=== PATIENT | male | born 1975 | race Caucasian/White ===

== ENCOUNTER 2017-06-17 14:08 | Emergency (ER) | payer OTHER ==
[2017-06-17] MEDS ORDERED: IBUPROFEN 600 MG TAB PO STA (15:24)
[2017-06-17] MEDS ORDERED: IPRATROPIUM-ALBUTEROL 3 ML NEB INHALATION STA (15:24)
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
--- NOTE | 2017-06-17 16:05 | XR ---
EXAMINATION TYPE: XR chest 2V DATE OF EXAM: 06/17/2017 COMPARISON: Prior chest x-ray April 24, 2010 HISTORY: Cough TECHNIQUE: Frontal and lateral views of the chest are obtained. FINDINGS: Sternal wires and metallic aortic valve are redemonstrated. There is no new suspicious foc al air space opacity, pleural effusion, or pneumothorax seen. There is persistent left hilar linear scarring. The cardiac silhouette size is enlarged. There is large Clark horacio from prior scoliosis correction surgery redemonstrated. IMPRESSION: No suspicious acute infiltrate.
[2017-06-17 16:38] VITALS: BP 118/78; PULSE 88; RESP 17; TEMP 98.7
== END 2017-06-17 16:37 | disposition home or self-care (01) ==
LOC: EC 14:08
DX: J10.1 Influenza due to other identified influenza virus with other respiratory manifestations (principal); I10 Essential (primary) hypertension; F17.200 Nicotine dependence, unspecified, uncomplicated; Z88.1 Allergy status to other antibiotic agents; Z88.2 Allergy status to sulfonamides; Z79.01 Long term (current) use of anticoagulants; Z79.899 Other long term (current) drug therapy
CPT/HCPCS: 71046; 87502; 99283

== ENCOUNTER → 2017-12-01 | Outpatient (CLI) | payer OTHER ==
--- NOTE | 2017-12-01 14:55 | US ---
EXAMINATION TYPE: US kidneys/renal and bladder DATE OF EXAM: 12/01/2017 COMPARISON: CT & US CLINICAL HISTORY: N31.9 Neurogenic Bladder. Neurogenic bladder, pt has urostomy bag EXAM MEASUREMENTS: Right Kidney: 11.6 x 6.2 x 5.3 cm Left Kidney: 10.8 x 5.9 x 5.4 cm Pt scanned in wheelchair Right Kidney: lower pole gassed out Left Kidney: lower pole difficult to visualize Bladder: Pt has urostomy bag Incidental finding enlarged spleen Cortical medullary differentiation is maintained. Question some increased cortical echogenicity. IMPRESSION: There are some limitations to the exam. There may be some underlying medical renal disease. Ryley del cid.
== END | disposition home or self-care (01) ==
LOC: RADUSWWP 13:53
PROVIDERS: ATTEND Urology
DX: R16.1 Splenomegaly, not elsewhere classified (principal)
CPT/HCPCS: 76770

== ENCOUNTER → 2018-09-17 | Outpatient (CLI) | payer OTHER ==
--- NOTE | 2018-09-17 15:49 | MR ---
EXAMINATION TYPE: MR shoulder LT wo con DATE OF EXAM: 09/17/2018 COMPARISON: None HISTORY: Pain in left shoulder TECHNIQUE: Multiplanar, multisequence imaging of the left shoulder is performed without contrast. FINDINGS: There is motion on the exam which may limit evaluation Rotator Cuff: There is abnormal thickening, increased signal within the rotator cuff tendon. No ginette rotator cuff tear is evident. Acromioclavicular Joint: Some arthropathy present at the acromioclavicular joint, there is some fluid signal in the subacromial subdeltoid bursa. Distal acromion is downturned, suspect there is a distal acromial spur. Glenohumeral Joint: Intact Labrum: The labrum appears grossly intact given limitation of non-arthrogram study. Biceps Tendon: The long head of biceps is in normal location within bicipital groove. Bone marrow signal: Pseudocysts present within the humeral head. Other: No additional significant abnormality is appreciated. IMPRESSION: Tendinosis of the rotator cuff, correlate for impingement. No ginette rotator cuff tear.
== END | disposition home or self-care (01) ==
LOC: RADMRIMAIN 14:22
PROVIDERS: ATTEND Family Medicine
DX: M67.814 Other specified disorders of tendon, left shoulder (principal)

== ENCOUNTER 2018-11-11 20:58 | Emergency (ER) | payer OTHER ==
[2018-11-11 21:06] VITALS: RESP 16; TEMP 98.1
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
[2018-11-11 21:59] LABS: Anisocytosis Slight; Basophils % (A) 0 %; Eosinophils # (A) 0.1 k/uL (0-0.7); Eosinophils % (A) 1 %; HCT 47.8 % (39.0-53.0); HGB 15.4 gm/dL (13.0-17.5); Lymphocytes # (A) 1.7 k/uL (1.0-4.8); Lymphocytes % (A) 15 %; MCH 26.9 pg (25.0-35.0); MCHC 32.3 g/dL (31.0-37.0); MCV 83.3 fL (80.0-100.0); Mean Platelet Volume 7.5; Monocytes # (A) 0.6 k/uL (0-1.0); Monocytes % (A) 5 %; Neutrophils % (A) 78 %; Platelet Count 225 k/uL (150-450); RBC 5.74 m/uL (4.30-5.90); RDW 16.4 % (11.5-15.5); WBC 11.5 k/uL (3.8-10.6)
--- NOTE | 2018-11-11 22:02 | CT ---
EXAMINATION TYPE: CT brain wo con DATE OF EXAM: 11/11/2018 COMPARISON: 03/06/2010 HISTORY: lt facial numbness x [address] DLP: 1099.4 mGycm. Automated Exposure Control for Dose Reduction was Utilized. TECHNIQUE: CT scan of the head is performed without contrast. FINDINGS: Ventricles have normal size. There is no mass effect nor midline shift. There is no sign of intracranial hemorrhage. There is mild hypodensity around the lateral ventricles and the periventric ular white matter. Calvarium is intact. There is a 1 cm area of hypodensity in the genu right interna l capsule. IMPRESSION: There is some cerebral atrophy and mild white matter changes that could relate to chronic small vesse l ischemia or demyelinating disease. No significant change compared to old exam.
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
[2018-11-11 22:08] LABS: ALT 21 U/L (21-72); AST 29 U/L (17-59); African American GFR (CKD) >90 (>60 ml/min/1.73 sqM); Albumin 4.1 g/dL (3.5-5.0); Alkaline Phosphatase 380 U/L (38-126); Anion Gap 10 mmol/L; Blood Urea Nitrogen 19 mg/dL (9-20); Calcium 9.8 mg/dL (8.4-10.2); Carbon Dioxide 22 mmol/L (22-30); Chloride 107 mmol/L (98-107); Glucose 76 mg/dL (74-99); Magnesium 1.7 mg/dL (1.6-2.3); Potassium 4.2 mmol/L (3.5-5.1); Sodium 139 mmol/L (137-145); Total Bilirubin 0.7 mg/dL (0.2-1.3); Total Protein 7.6 g/dL (6.3-8.2)
[2018-11-11 22:11] LABS: INR 1.9 (<1.2)
[2018-11-11 22:12] LABS: Partial Thromboplastin Time 34.2 sec (22.0-30.0)
[2018-11-11 22:24] LABS: T4, Free (Free Thyroxine) 1.33 ng/dL (0.78-2.19)
[2018-11-11 23:41] VITALS: BP 105/82; PULSE 118
== END 2018-11-11 23:41 | disposition home or self-care (01) ==
LOC: EC 20:58
DX: G51.0 Bell's palsy (principal); I10 Essential (primary) hypertension; F17.200 Nicotine dependence, unspecified, uncomplicated; Z95.2 Presence of prosthetic heart valve; Z79.01 Long term (current) use of anticoagulants; Z79.899 Other long term (current) drug therapy; Z88.1 Allergy status to other antibiotic agents; Z88.2 Allergy status to sulfonamides; Z91.048 Other nonmedicinal substance allergy status
CPT/HCPCS: 36415; 70450; 71046; 80053; 83735; 84439; 84443; 84481; 85025; 85610; 85730; 93005; 99285

== ENCOUNTER 2019-04-08 15:01 | Emergency (ER) | payer OTHER ==
[2019-04-08 15:11] VITALS: BP 130/87; PULSE 97; RESP 16; TEMP 97.1
[2019-04-08] MEDS ORDERED: DIPH,PERTUS(ACELL)TETVAC-LF 0.5 ML VIAL IM ONE (15:20)
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
[2019-04-08 16:02] LABS: INR 3.5 (<1.2); Prothrombin Time 33.4 sec (9.0-12.0)
--- NOTE | 2019-04-08 16:24 | CT ---
EXAMINATION TYPE: CT brain celia rogers DATE OF EXAM: 04/08/2019 COMPARISON: 11/11/2018 HISTORY: Fall with subsequent head and neck pain CT DLP: 1477.2 mGycm. Automated Exposure Control for Dose Reduction was Utilized. TECHNIQUE: CT scan of the head and cervical spine are performed without contrast. FINDINGS: There is no acute intracranial hemorrhage, mass effect, or midline shift identified. Pos terior right para midline occipital scalp hematoma measures 6 mm in greatest thickness. The ventricle s and sulci are within normal limits in size. Patchy areas of hypoattenuation are seen within the per iventricular and subcortical white matter. There is an old lacunar injury of the anterior limb of the right internal capsule. The globes are intact and the visualized sinuses are clear. Cervical spine is visualized in its entirety from C1 through upper thoracic levels and demonstrates s atisfactory alignment without evidence of acute fracture or dislocation. Prevertebral soft tissue ap pears within normal limits. The C1-C2 articulation is unremarkable. Partial visualization of postsu rgical changes of the thoracic spine. Multilevel endplate sclerosis and intervertebral disc space sophia rowing. Sclerotic foci of C4 and T1 could represent small bone islands. There is reversal of the usua l cervical lordosis. IMPRESSION: 1. There is no acute fracture or dislocation evident in the cervical spine. 2. No acute intracranial hemorrhage, mass effect, or midline shift is seen. 3. Right para midline scalp hematoma of the occipital region measuring 6 mm in greatest thickness. 4. Reversal usual cervical lordosis that may be on the basis of spasm or patient positioning.
== END 2019-04-08 16:51 | disposition home or self-care (01) ==
LOC: EC 15:01
DX: S00.03XA Contusion of scalp, initial encounter (principal); I10 Essential (primary) hypertension; G82.20 Paraplegia, unspecified; F17.200 Nicotine dependence, unspecified, uncomplicated; Z79.01 Long term (current) use of anticoagulants; Z79.899 Other long term (current) drug therapy; Z88.1 Allergy status to other antibiotic agents; Z88.2 Allergy status to sulfonamides; Z23 Encounter for immunization; Z95.2 Presence of prosthetic heart valve; Z99.3 Dependence on wheelchair; W18.39XA Other fall on same level, initial encounter; Y92.89 Other specified places as the place of occurrence of the external cause
CPT/HCPCS: 36415; 70450; 72125; 85610; 90471; 90715; 99284

== ENCOUNTER → 2019-09-14 | Outpatient (CLI) | payer OTHER ==
[2019-09-14 15:58] LABS: Anisocytosis Slight; Basophils % (A) 0 %; Eosinophils # (A) 0.1 k/uL (0-0.7); Eosinophils % (A) 1 %; HCT 44.6 % (39.0-53.0); HGB 14.2 gm/dL (13.0-17.5); Lymphocytes # (A) 1.2 k/uL (1.0-4.8); Lymphocytes % (A) 15 %; MCH 29.6 pg (25.0-35.0); MCHC 31.9 g/dL (31.0-37.0); Mean Platelet Volume 8.3; Monocytes # (A) 0.4 k/uL (0-1.0); Monocytes % (A) 5 %; Neutrophils # (A) 6.4 k/uL (1.3-7.7); Neutrophils % (A) 78 %; Platelet Count 200 k/uL (150-450); RDW 16.2 % (11.5-15.5); WBC 8.1 k/uL (3.8-10.6)
[2019-09-14 17:31] LABS: Erythrocyte Sedimentation Rate 80 mm/hr (0-15)
[2019-09-14 23:24] LABS: African American GFR (CKD) 168.6 (60.0-200.0); Albumin 3.8 g/dL (3.80-4.90); Albumin/Globulin Ratio 1.31 (1.60-3.17); Anion Gap 10.7 mmol/L (4.00-12.00); Bilirubin, Conjugated 0.6 mg/dL (0.20-0.40); Bilirubin,Unconjugated 0.2 mg/dL; Calcium 9.2 mg/dL (8.7-10.3); Carbon Dioxide 24.3 mmol/L (21.6-31.8); Globulin 2.9 g/dL (1.6-3.3); Non-African American GFR(CKD) 145.5 (60.0-200.0); Total Bilirubin 0.8 mg/dL (0.2-1.2); Total Protein 6.7 g/dL (6.2-8.2)
== END | disposition home or self-care (01) ==
LOC: LABWHC1 11:24
PROVIDERS: ATTEND Internal Medicine
DX: M86.651 Other chronic osteomyelitis, right thigh (principal)
CPT/HCPCS: 36415; 80048; 80076; 85025; 85652

== ENCOUNTER 2020-01-19 | Emergency (ER) | payer OTHER ==
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
[2020-01-19 00:14] VITALS: RESP 16; TEMP 98.3
[2020-01-19] MEDS ORDERED: MORPHINE SULFATE 4 MG/ML SYRINGE IVP STA (00:55)
[2020-01-19 01:09] VITALS: BP 131/71; PULSE 79
== END 2020-01-19 01:19 | disposition other institution (70) ==
LOC: EC
DX: M86.68 Other chronic osteomyelitis, other site (principal); M62.461 Contracture of muscle, right lower leg; M62.462 Contracture of muscle, left lower leg; I10 Essential (primary) hypertension; G82.20 Paraplegia, unspecified; Z87.828 Personal history of other (healed) physical injury and trauma; Z88.1 Allergy status to other antibiotic agents; Z88.2 Allergy status to sulfonamides; Z95.2 Presence of prosthetic heart valve; Z79.01 Long term (current) use of anticoagulants
CPT/HCPCS: 99284; 96374; J2270

== ENCOUNTER 2020-04-23 16:53 | Inpatient (IN) | payer OTHER ==
[2020-04-23] MEDS ORDERED: SODIUM CHLORIDE 0.9% 500 ML 500 ML IV STA (17:33)
[2020-04-23] MEDS ORDERED: ONDANSETRON 4 MG/2 ML VIAL IVP STA (17:37)
[2020-04-23] MEDS ORDERED: MORPHINE SULFATE 4 MG/ML SYRINGE IVP STA (17:37)
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
[2020-04-23 18:20] LABS: Anisocytosis Slight; Basophils % (A) 0 %; Eosinophils # (A) 0.1 k/uL (0-0.7); Eosinophils % (A) 1 %; HGB 9.2 gm/dL (13.0-17.5); Hypochromasia Marked; Lymphocytes # (A) 0.8 k/uL (1.0-4.8); Lymphocytes % (A) 8 %; MCHC 30.7 g/dL (31.0-37.0); Mean Platelet Volume 6.7; Microcytosis Moderate; Monocytes # (A) 0.4 k/uL (0-1.0); Monocytes % (A) 4 %; Neutrophils # (A) 8.8 k/uL (1.3-7.7); Neutrophils % (A) 86 %; Platelet Count 411 k/uL (150-450); Poikilocytosis Slight; WBC 10.2 k/uL (3.8-10.6)
[2020-04-23 18:26] LABS: Anion Gap 3 mmol/L; Blood Urea Nitrogen 18 mg/dL (9-20); Carbon Dioxide 28 mmol/L (22-30); Chloride 101 mmol/L (98-107); Glucose 122 mg/dL (74-99); MCV 71.5 fL (80.0-100.0); Potassium 4.9 mmol/L (3.5-5.1); Sodium 132 mmol/L (137-145)
[2020-04-23 18:27] LABS: ALT 42 U/L (4-49); AST 99 U/L (17-59); African American GFR (CKD) >90 (>60 ml/min/1.73 sqM); Albumin 3.2 g/dL (3.5-5.0); Alkaline Phosphatase 956 U/L (38-126); Calcium 8.8 mg/dL (8.4-10.2); Non-African American GFR(CKD) >90 (>60 ml/min/1.73 sqM); Total Bilirubin 0.5 mg/dL (0.2-1.3); Total Protein 7.5 g/dL (6.3-8.2)
--- NOTE | 2020-04-23 19:06 | XR ---
EXAMINATION TYPE: XR sacrum coccyx DATE OF EXAM: 04/23/2020 COMPARISON: NONE HISTORY: Chronic wound TECHNIQUE: 3 views FINDINGS: There is osteopenia. There is posterior fusion surgery in the lower lumbar spine and extend ing through S1. Visualized sacrum appears to show no focal bone destruction. Coccyx is not well seen. Coccygeal segments appear to be absent. IMPRESSION: Limited exam shows possible destructive changes involving all the segments of the coccyx. Sacrum is osteopenic.
[2020-04-23 19:28] LABS: C Reactive Protein 165.4 mg/L (<10.0)
[2020-04-23] MEDS ORDERED: ACETAMINOPHEN TAB 500 MG TAB PO STA (20:20)
[2020-04-23] MEDS ORDERED: ACETAMINOPHEN TAB 325 MG TAB PO PRN (20:46)
[2020-04-23] MEDS ORDERED: ONDANSETRON 4 MG/2 ML VIAL IVP PRN (20:46)
[2020-04-23] MEDS ORDERED: NALOXONE 0.4 MG/ML 1 ML VIAL IV PRN (20:46)
[2020-04-23] MEDS ORDERED: PIPERACILLIN-TAZOBACTAM 3.375 GM in SODIUM CHLORIDE 0.9% 100 ML IVPB STA (20:50)
[2020-04-23] MEDS ORDERED: CLINDAMYCIN 600 MG in DEXTROSE 5% IN WATER 50 ML IVPB STA ×2 (20:59)
[2020-04-23] MEDS ORDERED: diphenhydrAMINE 25 MG CAP PO STA (21:43)
[2020-04-23] MEDS: SODIUM CHLORIDE 0.9% 1,000 ML IV SCH (21:44)
[2020-04-23] MEDS: MORPHINE SULFATE 4 MG/ML SYRINGE IV PRN (22:25)
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
[2020-04-24 00:51] LABS: Prothrombin Time 57.4 sec (9.0-12.0)
[2020-04-24 00:58] LABS: INR 5.7 (<1.2)
[2020-04-24] MEDS ORDERED: ALPRAZolam 0.25 MG TAB PO PRN (03:00)
[2020-04-24] MEDS: MORPHINE SULFATE 4 MG/ML SYRINGE IV PRN ×4 (05:45→20:16)
[2020-04-24 05:55] LABS: Anisocytosis Slight; HCT 27.5 % (39.0-53.0); HGB 8.7 gm/dL (13.0-17.5); Hypochromasia Marked; MCH 23.3 pg (25.0-35.0); MCHC 31.8 g/dL (31.0-37.0); MCV 73.2 fL (80.0-100.0); Mean Platelet Volume 7.1; Microcytosis Moderate; Platelet Count 345 k/uL (150-450); Poikilocytosis Slight; RBC 3.76 m/uL (4.30-5.90); RDW 17.2 % (11.5-15.5); WBC 12.4 k/uL (3.8-10.6)
[2020-04-24 09:39] LABS: Ferritin 81.6 ng/mL (22.0-322.0)
[2020-04-24 09:44] LABS: % Iron Saturation 5.53 (15.00-50.00)
[2020-04-24 09:45] LABS: African American GFR (CKD) 152.8 (60.0-200.0); Albumin/Globulin Ratio 1.11 (1.60-3.17); Anion Gap 9.3 mmol/L (4.00-12.00); Calcium 8.1 mg/dL (8.7-10.3); Carbon Dioxide 22.7 mmol/L (21.6-31.8); Globulin 2.7 g/dL (1.6-3.3); Non-African American GFR(CKD) 131.8 (60.0-200.0); Potassium 4.5 mmol/L (3.5-5.5); Total Bilirubin 0.7 mg/dL (0.3-1.2); Total Protein 5.7 g/dL (6.2-8.2)
[2020-04-24 09:51] LABS: Prothrombin Time 50.1 sec (9.9-11.9)
[2020-04-24] MEDS: POTASSIUM CHLORIDE ER 20 MEQ TAB.ER PO SCH (10:13)
[2020-04-24] MEDS: MAGNESIUM OXIDE 400 MG TAB PO SCH (10:14)
[2020-04-24 10:15] LABS: INR 5.24 (0.90-1.11)
[2020-04-24] MEDS: CLINDAMYCIN 150 MG CAP PO SCH ×4 (10:17→21:16)
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
[2020-04-24] MEDS: SODIUM CHLORIDE 0.9% 1,000 ML IV SCH (13:44)
--- NOTE | 2020-04-24 13:48 | P.PN ---
Subjective Progress Note Date: 04/24/20 Patient is awake and alert. He is complaining of pain that is not well controlled. Apparently patient has an ALLERGY to every antibiotic in the book. When I try to clarify these ALLERGY most of it was reported itching but not read ALLERGY. He is requesting IV Benadryl around the clock with each dose of antibiotic which I explained to him that is not realistic and is not a good practice. I advised him to review his antibiotic ALLERGIES accurately so that we can eliminate some of his long ALLERGY list. On exam of his buttock, patient has a very large stage IV ulcer in the coccyx extending all the way to the bone with wound packing and foul-smelling and some purulent drainage as well as surrounding erythema. Objective - Vital Signs Vital signs: Vital Signs Temp 99.2 F 04/24/20 08:00 Pulse 118 H 04/24/20 08:00 Resp 20 04/24/20 08:00 BP 113/68 04/24/20 08:00 Pulse Ox 98 04/24/20 08:00 Intake & Output 04/23/20 04/24/20 04/24/20 18:59 06:59 18:59 Output Total 600 Balance -600 Weight 65.771 kg 65.771 kg Output: Urine 600 - Exam General: The patient is awake and alert, in no distress Eye: there is normal conjunctiva bilaterally. Neck: The neck is supple, there is no JVD. Cardiovascular: Normal S1-S2, no S3-S4, no murmurs. Respiratory: Lungs clear to auscultation bilaterally Gastrointestinal: Abdomen is soft, nontender Musculoskeletal: There is no pedal edema. Neurological:. Speech is normal. Skin: Skin is warm and dry - Labs CBC & Chem 7: 04/24/20 05:45 04/24/20 05:45 Labs: Abnormal Lab Results - Last 24 Hours (Table) 04/23/20 04/23/20 04/24/20 Range/Units 17:41 17:41 00:33 WBC (3.8-10.6) k/uL RBC 4.20 L (4.30-5.90) m/uL Hgb 9.2 L (13.0-17.5) gm/dL Hct 30.0 L (39.0-53.0) % MCV 71.5 L D (80.0-100.0) fL MCH 22.0 L (25.0-35.0) pg MCHC 30.7 L (31.0-37.0) g/dL RDW 17.0 H (11.5-15.5) % Neutrophils # 8.8 H (1.3-7.7) k/uL Lymphocytes # 0.8 L (1.0-4.8) k/uL PT 57.4 H (9.0-12.0) sec INR 5.7 H* (<1.2) Sodium 132 L (137-145) mmol/L Creatinine 0.54 L (0.66-1.25) mg/dL BUN/Creatinine Ratio (12.00-20.00) Ratio Glucose 122 H (74-99) mg/dL Calcium (8.7-10.3) mg/dL Iron (65-175) ug/dL % Saturation (15.00-50.00) AST 99 H (17-59) U/L Alkaline Phosphatase 956 H (38-126) U/L C-Reactive Protein 165.4 H (<10.0) mg/L Total Protein (6.2-8.2) g/dL Albumin 3.2 L (3.5-5.0) g/dL Albumin/Globulin Ratio (1.60-3.17) g/dL 04/24/20 04/24/20 04/24/20 Range/Units 00:33 05:45 05:45 WBC 12.4 H (3.8-10.6) k/uL RBC 3.76 L (4.30-5.90) m/uL Hgb 8.7 L (13.0-17.5) gm/dL Hct 27.5 L (39.0-53.0) % MCV 73.2 L (80.0-100.0) fL MCH 23.3 L (25.0-35.0) pg MCHC (31.0-37.0) g/dL RDW 17.2 H (11.5-15.5) % Neutrophils # (1.3-7.7) k/uL Lymphocytes # (1.0-4.8) k/uL PT 50.1 H (9.0-12.0) sec INR 5.24 H* (<1.2) Sodium (137-145) mmol/L Creatinine (0.66-1.25) mg/dL BUN/Creatinine Ratio (12.00-20.00) Ratio Glucose (74-99) mg/dL Calcium (8.7-10.3) mg/dL Iron 14 L (65-175) ug/dL % Saturation 5.53 L (15.00-50.00) AST (17-59) U/L Alkaline Phosphatase (38-126) U/L C-Reactive Protein (<10.0) mg/L Total Protein (6.2-8.2) g/dL Albumin (3.5-5.0) g/dL Albumin/Globulin Ratio (1.60-3.17) g/dL 04/24/20 Range/Units 05:45 WBC (3.8-10.6) k/uL RBC (4.30-5.90) m/uL Hgb (13.0-17.5) gm/dL Hct (39.0-53.0) % MCV (80.0-100.0) fL MCH (25.0-35.0) pg MCHC (31.0-37.0) g/dL RDW (11.5-15.5) % Neutrophils # (1.3-7.7) k/uL Lymphocytes # (1.0-4.8) k/uL PT (9.0-12.0) sec INR (<1.2) Sodium (137-145) mmol/L Creatinine 0.5 L (0.66-1.25) mg/dL BUN/Creatinine Ratio 32.00 H (12.00-20.00) Ratio Glucose (74-99) mg/dL Calcium 8.1 L (8.7-10.3) mg/dL Iron (65-175) ug/dL % Saturation (15.00-50.00) AST 54 H (17-59) U/L Alkaline Phosphatase 919 H (38-126) U/L C-Reactive Protein (<10.0) mg/L Total Protein 5.7 L (6.2-8.2) g/dL Albumin 3.00 L (3.5-5.0) g/dL Albumin/Globulin Ratio 1.11 L (1.60-3.17) g/dL Microbiology - Last 24 Hours (Table) 12/07/20 18:07 Gram Stain - Preliminary Buttock Wound Culture - Preliminary Assessment and Plan Assessment: This is a 44-year-old male with complex past medical history noted below who presented to the emergency room with foul-smelling discharge from a chronic decubitus ulcer. Patient was evaluated in the ER and admitted to the hospital for further management of his medical problems noted below 1. Infected stage IV pressure ulcer of the sacrum/coccyx: Patient was started on a 4 weeks course of Cipro and amoxicillin from the [facility]. He is currently in the third week. Those were discontinued on presentation and patient Started on clindamycin. Infectious disease and general surgery consulted for further evaluation and possible debridement. Wound culture pending. We will continue to monitor inflammatory markers. CRP was 65 on presentation Patient has a long list of ALLERGIES that appear not to be accurate and was mos tly itching that he experienced without any skin rash. Patient was counseled that he needs to clarify his ALLERGIES and itching is simply not an ALLERGY as currently we have limited options of antibiotic for treatment. 2. Chronic osteomyelitis of the sacrum/coccyx with bone destruction involving the sacrum noted on x-ray: Patient usually follow-up with [facility]. He verbalized interest of moving his care into [id number] 3. Sepsis without septic shock: Improved with aggressive IV fluid hydration and antibiotic. Lactic acid normal. 4. History of DVT and PE on Coumadin: Pharmacy to dose 5. Supratherapeutic INR 6. Essential hypertension: A pressure within acceptable range. We'll continue to monitor 7. Hyponatremia: Resolved with IV fluid hydration 8. Iron deficiency anemia, and started on ferrous sulfate twice daily
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
[2020-04-24] MEDS: FERROUS SULFATE 325 MG TAB PO SCH (17:42)
[2020-04-24] MEDS ORDERED: WARFARIN 0.5 MG TAB PO ONE (18:00)
[2020-04-25] MEDS: KETOROLAC 15 MG/ML 1 ML VIAL IVP PRN ×2 (01:39→18:10)
[2020-04-25] MEDS: SODIUM CHLORIDE 0.9% 1,000 ML IV SCH (05:25)
[2020-04-25 06:41] LABS: Anisocytosis Slight; Basophils % (A) 0 %; Eosinophils # (A) 0.1 k/uL (0-0.7); Eosinophils % (A) 1 %; HCT 28.3 % (39.0-53.0); HGB 8.7 gm/dL (13.0-17.5); Hypochromasia Marked; Lymphocytes # (A) 0.8 k/uL (1.0-4.8); Lymphocytes % (A) 8 %; MCH 22.6 pg (25.0-35.0); MCHC 30.9 g/dL (31.0-37.0); MCV 73.4 fL (80.0-100.0); Mean Platelet Volume 6.3; Microcytosis Moderate; Monocytes # (A) 0.6 k/uL (0-1.0); Monocytes % (A) 6 %; Neutrophils # (A) 8.1 k/uL (1.3-7.7); Neutrophils % (A) 84 %; Platelet Count 358 k/uL (150-450); Poikilocytosis Slight; RBC 3.85 m/uL (4.30-5.90); RDW 17.3 % (11.5-15.5); WBC 9.7 k/uL (3.8-10.6)
[2020-04-25] MEDS: MAGNESIUM OXIDE 400 MG TAB PO SCH (08:44)
[2020-04-25] MEDS: MORPHINE SULFATE 4 MG/ML SYRINGE IV PRN ×4 (08:44→22:13)
[2020-04-25] MEDS: FERROUS SULFATE 325 MG TAB PO SCH ×2 (08:45→16:59)
[2020-04-25] MEDS: POTASSIUM CHLORIDE ER 20 MEQ TAB.ER PO SCH (08:45)
[2020-04-25] MEDS: CLINDAMYCIN 150 MG CAP PO SCH (08:45)
--- NOTE | 2020-04-25 10:56 | P.PN ---
Subjective Progress Note Date: 04/25/20 Patient is awake and alert. No acute events overnight. He does not like the food in the hospital and has not eating much. Objective - Vital Signs Vital signs: Vital Signs Temp 97.5 F L 04/25/20 07:22 Pulse 109 H 04/25/20 07:22 Resp 18 04/25/20 07:22 BP 101/62 04/25/20 07:22 Pulse Ox 98 04/25/20 07:22 Intake & Output 04/24/20 04/25/20 04/25/20 18:59 06:59 18:59 Output Total 1000 450 Balance -1000 -450 Output: Urine 1000 450 Other: # Bowel Movements 1 1 - Exam General: The patient is awake and alert, in no distress Eye: there is normal conjunctiva bilaterally. Neck: The neck is supple, there is no JVD. Cardiovascular: Normal S1-S2, no S3-S4, no murmurs. Respiratory: Lungs clear to auscultation bilaterally Gastrointestinal: Abdomen is soft, nontender Musculoskeletal: There is no pedal edema. Neurological:. Speech is normal. Skin: Skin is warm and dry. Referred to my progress note from yesterday, wound care and general surgery known for decubitus ulcer description - Labs CBC & Chem 7: 04/25/20 06:10 04/24/20 05:45 Labs: Abnormal Lab Results - Last 24 Hours (Table) 04/25/20 Range/Units 06:10 RBC 3.85 L (4.30-5.90) m/uL Hgb 8.7 L (13.0-17.5) gm/dL Hct 28.3 L (39.0-53.0) % MCV 73.4 L (80.0-100.0) fL MCH 22.6 L (25.0-35.0) pg MCHC 30.9 L (31.0-37.0) g/dL RDW 17.3 H (11.5-15.5) % Neutrophils # 8.1 H (1.3-7.7) k/uL Lymphocytes # 0.8 L (1.0-4.8) k/uL Microbiology - Last 24 Hours (Table) 04/23/20 21:04 Blood Culture - Preliminary Blood No Growth after 24 hours 04/23/20 18:07 Gram Stain - Preliminary Buttock Wound Culture - Preliminary Presumptive MRSA Assessment and Plan Assessment: This is a 44-year-old male with complex past medical history noted below who presented to the emergency room with foul-smelling discharge from a chronic decubitus ulcer. Patient was evaluated in the ER and admitted to the hospital for further management of his medical problems noted below 1. 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 Currently on clindamycin. Infectious disease and general surgery consulted for further evaluation and possible debridement. Wound culture pending. We will continue to monitor inflammatory markers. CRP was 165 on presentation Patient was started on a 4 weeks course of Cipro and amoxicillin from the [facility]. He completed 3/4 weeks. Those antibiotics were discontinued on presentation and patient Started on clindamycin. Patient has a long list of ALLERGIES that appear not to be accurate and was mostly itching that he experienced without any skin rash. Patient was counseled that he needs to clarify his ALLERGIES and itching is simply not an ALLERGY as currently we have limited options of antibiotic for treatment. 2. Chronic osteomyelitis of the sacrum/coccyx with bone destruction involving the sacrum noted on x-ray: [facility] He verbalized interest of moving his care into town as he is from [id number] 3. Sepsis without septic shock: Improved with aggressive IV fluid hydration and antibiotic. Lactic acid normal. Blood cultures negative to date 4. History of DVT and PE on Coumadin: Pharmacy to dose 5. Supratherapeutic INR 6. Essential hypertension: A pressure within acceptable range. We'll continue to monitor 7. Hyponatremia: Resolved with IV fluid hydration 8. Iron deficiency anemia, and started on ferrous sulfate twice daily Awaiting INR to improve for surgical debridement
[2020-04-25] MEDS ORDERED: PHYTONADIONE ORAL 5 MG/5 ML ORAL.SYRG PO STA (12:12)
[2020-04-25 12:24] LABS: African American GFR (CKD) 167.4 (60.0-200.0); Anion Gap 7.3 mmol/L (4.00-12.00); C Reactive Protein 17.4 mg/dL (0.0-0.8); Calcium 8.2 mg/dL (8.7-10.3); Carbon Dioxide 22.7 mmol/L (21.6-31.8); Non-African American GFR(CKD) 144.5 (60.0-200.0); Potassium 4.5 mmol/L (3.5-5.5)
--- NOTE | 2020-04-25 13:35 | P.PN ---
Subjective Progress Note Date: 04/25/20 CHIEF COMPLAINT: Stage IV sacral and coccyx decubitus ulcer HISTORY OF PRESENT ILLNESS: Patient seen and examined with Dr. Kang. Patient is being followed for his stage IV sacral and coccyx decubitus ulcer. Patient is on IV antibiotics. Culture is growing presumptive MRSA he did have a temp of 100 last night. WBC has improved from 12.4-9.7. INR 5.85. Patient is still having foul smelling drainage from the ulcer. PHYSICAL EXAM: VITAL SIGNS: Reviewed. GENERAL: Well-developed in no acute distress. HEENT: No sclera icterus. Extraocular movements grossly intact. Moist buccal mucosa. Head is atraumatic, normocephalic. ABDOMEN: Soft. Nondistended. Nontender. NEUROLOGIC: Alert and oriented. Cranial nerves II through XII grossly intact. SKIN: Stage IV coccyx sacral pressure ulcer. Ulceration has granulation tissue present. There is a large amount of purulent foul odor discharge. And there is tunneling noted. No eschar tissue noted ASSESSMENT: 1. Infected stage IV pressure ulcer of the sacrum and coccyx 2. Chronic osteomyelitis of the sacrum and coccyx 3. Coagulopathy 4. History of DVT and PE anticoagulated with Coumadin PLAN: -No surgical intervention planned -Continue antibiotics -Continue wound care Physician Termite Treater note has been reviewed by physician. Signing provider agrees with the documented findings, assessment, and plan of care. Objective - Vital Signs Vital signs: Vital Signs Temp 97.5 F L 04/25/20 07:22 Pulse 109 H 04/25/20 07:22 Resp 18 04/25/20 07:22 BP 101/62 04/25/20 07:22 Pulse Ox 98 04/25/20 07:22 Intake & Output 04/24/20 04/25/20 04/25/20 18:59 06:59 18:59 Output Total 1000 450 Balance -1000 -450 Output: Urine 1000 450 Other: # Bowel Movements 1 1 - Labs CBC & Chem 7: 04/25/20 06:10 04/25/20 06:10 Labs: Abnormal Lab Results - Last 24 Hours (Table) 04/25/20 04/25/20 04/25/20 Range/Units 06:10 06:10 06:10 RBC 3.85 L (4.30-5.90) m/uL Hgb 8.7 L (13.0-17.5) gm/dL Hct 28.3 L (39.0-53.0) % MCV 73.4 L (80.0-100.0) fL MCH 22.6 L (25.0-35.0) pg MCHC 30.9 L (31.0-37.0) g/dL RDW 17.3 H (11.5-15.5) % Neutrophils # 8.1 H (1.3-7.7) k/uL Lymphocytes # 0.8 L (1.0-4.8) k/uL PT 55.4 H* (9.9-11.9) sec INR 5.85 H* (0.90-1.11) Sodium 134 L (135-145) mmol/L Creatinine 0.4 L (0.6-1.5) mg/dL BUN/Creatinine Ratio 30.00 H (12.00-20.00) Ratio Calcium 8.2 L (8.7-10.3) mg/dL C-Reactive Protein 17.4 H (0.0-0.8) mg/dL Microbiology - Last 24 Hours (Table) 04/23/20 21:04 Blood Culture - Preliminary Blood No Growth after 24 hours 04/23/20 18:07 Gram Stain - Preliminary Buttock Wound Culture - Preliminary Presumptive MRSA
[2020-04-25 15:49] VITALS: BMI 24.9
[2020-04-25] MEDS ORDERED: CLINDAMYCIN 600 MG in DEXTROSE 5% IN WATER 50 ML IVPB SCH ×2 (16:00)
[2020-04-25] MEDS ORDERED: WARFARIN 0.5 MG TAB PO ONE (18:00)
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
[2020-04-26 07:03] LABS: Anisocytosis Slight; Basophils % (A) 0 %; Eosinophils # (A) 0.1 k/uL (0-0.7); Eosinophils % (A) 1 %; HCT 28.3 % (39.0-53.0); HGB 8.7 gm/dL (13.0-17.5); Hypochromasia Marked; Lymphocytes # (A) 0.7 k/uL (1.0-4.8); Lymphocytes % (A) 10 %; MCH 22.4 pg (25.0-35.0); MCHC 30.9 g/dL (31.0-37.0); MCV 72.7 fL (80.0-100.0); Mean Platelet Volume 6.9; Microcytosis Moderate; Monocytes # (A) 0.4 k/uL (0-1.0); Monocytes % (A) 6 %; Neutrophils # (A) 5.6 k/uL (1.3-7.7); Neutrophils % (A) 81 %; Platelet Count 386 k/uL (150-450); Poikilocytosis Slight; RDW 17.1 % (11.5-15.5); WBC 6.9 k/uL (3.8-10.6)
[2020-04-26 07:03] LABS: INR 5.85 (0.90-1.11); Prothrombin Time 55.4 sec (9.9-11.9)
[2020-04-26] MEDS: MORPHINE SULFATE 4 MG/ML SYRINGE IV PRN ×3 (09:08→22:01)
[2020-04-26] MEDS: MAGNESIUM OXIDE 400 MG TAB PO SCH (09:09)
[2020-04-26] MEDS: FERROUS SULFATE 325 MG TAB PO SCH ×2 (09:09→17:33)
[2020-04-26] MEDS: POTASSIUM CHLORIDE ER 20 MEQ TAB.ER PO SCH (09:09)
[2020-04-26 10:00] LABS: INR 1.48 (0.90-1.11); Prothrombin Time 15.5 sec (9.9-11.9)
[2020-04-26 11:10] LABS: African American GFR (CKD) 167.4 (60.0-200.0); Anion Gap 8.4 mmol/L (4.00-12.00); Calcium 8.3 mg/dL (8.7-10.3); Carbon Dioxide 20.6 mmol/L (21.6-31.8); Non-African American GFR(CKD) 144.5 (60.0-200.0)
--- NOTE | 2020-04-26 12:35 | P.PN ---
Subjective Progress Note Date: 04/26/20 CHIEF COMPLAINT: Stage IV sacral decubitus ulcer HISTORY OF PRESENT ILLNESS: Patient is being followed for his stage IV sacral decubitus ulcer. Patient is on IV antibiotics. Culture is growing MRSA. Af ebrile. Tachycardic. WBC 6.9 hemoglobin 8.7. Patient still having foul smelling drainage from the pressure ulcer. Patient has been requiring IV morphine for pain. PHYSICAL EXAM: VITAL SIGNS: Reviewed. GENERAL: Well-developed in no acute distress. HEENT: No sclera icterus. Extraocular movements grossly intact. Moist buccal mucosa. Head is atraumatic, normocephalic. ABDOMEN: Soft. Nondistended. Nontender. NEUROLOGIC: Alert and oriented. Cranial nerves II through XII grossly intact. SKIN: Stage IV sacral pressure ulcer. Ulceration has granulation tissue present. There is a large amount of purulent foul odor discharge. And there is tunneling noted. No eschar tissue noted ASSESSMENT: 1. Infected stage IV pressure ulcer of the sacrum 2. Chronic osteomyelitis of the sacrum and coccyx 3. Coagulopathy 4. History of DVT and PE anticoagulated with Coumadin PLAN: -No surgical intervention planned -Continue antibiotics -Continue wound care Physician Coat Joiner Lockstitch note has been reviewed by physician. Signing provider agrees with the documented findings, assessment, and plan of care. Objective - Vital Signs Vital signs: Vital Signs Temp 98.4 F 04/26/20 07:55 Pulse 108 H 04/26/20 07:55 Resp 20 04/26/20 07:55 BP 124/79 04/26/20 07:55 Pulse Ox 98 04/26/20 07:55 Intake & Output 04/25/20 04/26/20 04/26/20 18:59 06:59 18:59 Intake Total 600 Output Total 275 100 Balance 325 -100 Weight 65.771 kg Intake: Intake, IV Titration 600 Amount Sodium Chloride 0.9% 1, 600 000 ml @ 60 mls/hr IV . [id number] COUNT INCLUDES THE [facility] Rx#:[id number] Output: Urine 275 Stool 100 - Labs CBC & Chem 7: 04/26/20 06:48 04/26/20 06:48 Labs: Abnormal Lab Results - Last 24 Hours (Table) 04/25/20 04/26/20 04/26/20 Range/Units 06:10 06:48 06:48 RBC 3.90 L (4.30-5.90) m/uL Hgb 8.7 L (13.0-17.5) gm/dL Hct 28.3 L (39.0-53.0) % MCV 72.7 L (80.0-100.0) fL MCH 22.4 L (25.0-35.0) pg MCHC 30.9 L (31.0-37.0) g/dL RDW 17.1 H (11.5-15.5) % Lymphocytes # 0.7 L (1.0-4.8) k/uL PT 55.4 H* 15.5 H (9.9-11.9) sec INR 5.85 H* 1.48 H (0.90-1.11) Sodium (135-145) mmol/L Carbon Dioxide (21.6-31.8) mmol/L Creatinine (0.6-1.5) mg/dL BUN/Creatinine Ratio (12.00-20.00) Ratio Calcium (8.7-10.3) mg/dL 04/26/20 Range/Units 06:48 RBC (4.30-5.90) m/uL Hgb (13.0-17.5) gm/dL Hct (39.0-53.0) % MCV (80.0-100.0) fL MCH (25.0-35.0) pg MCHC (31.0-37.0) g/dL RDW (11.5-15.5) % Lymphocytes # (1.0-4.8) k/uL PT (9.9-11.9) sec INR (0.90-1.11) Sodium 133 L (135-145) mmol/L Carbon Dioxide 20.6 L (21.6-31.8) mmol/L Creatinine 0.4 L (0.6-1.5) mg/dL BUN/Creatinine Ratio 35.00 H (12.00-20.00) Ratio Calcium 8.3 L (8.7-10.3) mg/dL Microbiology - Last 24 Hours (Table) 04/23/20 21:04 Blood Culture - Preliminary Blood No Growth after 48 hours 04/23/20 18:07 Gram Stain - Final Buttock Wound Culture - Final Methicillin resist S. aureus
[2020-04-26] MEDS: diphenhydrAMINE 50 MG/ML 1 ML VIAL IVP SCH (14:23)
[2020-04-26] MEDS ORDERED: WARFARIN 2 MG TAB PO ONE (18:00)
--- NOTE | 2020-04-26 18:16 | P.PN ---
Subjective Progress Note Date: 04/26/20 Complaining of itching and requests written IV Benadryl Objective - Vital Signs Vital signs: Vital Signs Temp 98.6 F 04/26/20 14:00 Pulse 110 H 04/26/20 14:00 Resp 20 04/26/20 14:00 BP 109/66 04/26/20 14:00 Pulse Ox 100 04/26/20 14:00 Intake & Output 04/25/20 04/26/20 04/26/20 18:59 06:59 18:59 Intake Total 600 Output Total 275 100 Balance 325 -100 Weight 65.771 kg Intake: Intake, IV Titration 600 Amount Sodium Chloride 0.9% 1, 600 000 ml @ 60 mls/hr IV . [id number] [facility] Rx#:[id number] Output: Urine 275 Stool 100 - Constitutional General appearance: Present: no acute distress - Respiratory Respiratory: bilateral: diminished - Cardiovascular Rhythm: regular - Integumentary Integumentary Comment(s): Chronic nonhealing wound, stage IV - Labs CBC & Chem 7: 04/26/20 06:48 04/26/20 06:48 Labs: Abnormal Lab Results - Last 24 Hours (Table) 04/25/20 04/26/20 04/26/20 Range/Units 06:10 06:48 06:48 RBC 3.90 L (4.30-5.90) m/uL Hgb 8.7 L (13.0-17.5) gm/dL Hct 28.3 L (39.0-53.0) % MCV 72.7 L (80.0-100.0) fL MCH 22.4 L (25.0-35.0) pg MCHC 30.9 L (31.0-37.0) g/dL RDW 17.1 H (11.5-15.5) % Lymphocytes # 0.7 L (1.0-4.8) k/uL PT 55.4 H* 15.5 H (9.9-11.9) sec INR 5.85 H* 1.48 H (0.90-1.11) Sodium (135-145) mmol/L Carbon Dioxide (21.6-31.8) mmol/L Creatinine (0.6-1.5) mg/dL BUN/Creatinine Ratio (12.00-20.00) Ratio Calcium (8.7-10.3) mg/dL 04/26/20 Range/Units 06:48 RBC (4.30-5.90) m/uL Hgb (13.0-17.5) gm/dL Hct (39.0-53.0) % MCV (80.0-100.0) fL MCH (25.0-35.0) pg MCHC (31.0-37.0) g/dL RDW (11.5-15.5) % Lymphocytes # (1.0-4.8) k/uL PT (9.9-11.9) sec INR (0.90-1.11) Sodium 133 L (135-145) mmol/L Carbon Dioxide 20.6 L (21.6-31.8) mmol/L Creatinine 0.4 L (0.6-1.5) mg/dL BUN/Creatinine Ratio 35.00 H (12.00-20.00) Ratio Calcium 8.3 L (8.7-10.3) mg/dL Microbiology - Last 24 Hours (Table) 04/23/20 21:04 Blood Culture - Preliminary Blood No Growth after 48 hours 04/23/20 18:07 Gram Stain - Final Buttock Wound Culture - Final Methicillin resist S. aureus Assessment and Plan (1) Chronic osteomyelitis of left lower leg with draining sinus Narrative/Plan: No surgical intervention planned, appreciate surgery input, appreciate infectious disease input started on IV daptomycin, patient states he is feeling itchy requesting IV Benadryl will continue to monitor Current Visit: No Status: Acute Code(s): M86.462 - CHRONIC OSTEOMYELIT W DRAINING SINUS, LEFT TIBIA AND FIBULA SNOMED Code(s): 704819795183894 (2) Failure of outpatient treatment Narrative/Plan: With multiple ALLERGIES most of them described as itching Current Visit: Yes Status: Acute Code(s): Z78.9 - OTHER SPECIFIED HEALTH STATUS SNOMED Code(s): 781529979 (3) Hypertension Narrative/Plan: Continue outpatient regiment and titrate as needed Current Visit: Yes Status: Acute Code(s): I10 - ESSENTIAL (PRIMARY) HYPERTENSION SNOMED Code(s): 19730698
--- NOTE | 2020-04-26 22:52 | PN ---
PROGRESS NOTE DATE OF SERVICE: 04/26/2020 REASON FOR FOLLOWUP: Sacral osteomyelitis MRSA. INTERVAL HISTORY: The patient's overall fever pattern has improved. The patient has been breathing comfortably. Denies having any chest pain or shortness of breath or cough. No abdominal pain or worsening pain to the sacral wound area. PHYSICAL EXAMINATION: Blood pressure 115/70 with a pulse of 130, temperature 98.2. He is 100% on room air. General description is a middle-aged male lying in bed in no distress. RESPIRATORY SYSTEM: Unlabored breathing. Clear to auscultation anteriorly. HEART: S1, S2. Regular rate and rhythm. ABDOMEN: Soft. No tenderness. LABS: Hemoglobin 8.7, white count 6.9. INR is 1.48. Creatinine 0.4. DIAGNOSTIC IMPRESSION AND PLAN: Patient with sacral osteomyelitis with local culture positive for methicillin-resistant Staphylococcus aeruginosa. The patient does have MULTIPLE ANTIBIOTIC ALLERGIES. He refused daptomycin last night because it is a mycin; however, I had a detailed discussion with the patient, and the patient finally agreed to try the daptomycin but wanted for it. If the patient tolerates it, to be able to continue with daptomycin for a total of 6 weeks. Local wound care per wound care team and close outpatient followup. MMODL / IJN: [id number] /
[2020-04-27] MEDS: MORPHINE SULFATE 4 MG/ML SYRINGE IV PRN ×2 (02:03→08:18)
[2020-04-27 06:59] LABS: Anisocytosis Slight; Basophils % (A) 0 %; Eosinophils # (A) 0.1 k/uL (0-0.7); Eosinophils % (A) 1 %; HCT 28.7 % (39.0-53.0); HGB 8.7 gm/dL (13.0-17.5); Hypochromasia Marked; Lymphocytes % (A) 14 %; MCH 22.3 pg (25.0-35.0); MCHC 30.4 g/dL (31.0-37.0); MCV 73.4 fL (80.0-100.0); Mean Platelet Volume 6.3; Microcytosis Moderate; Monocytes # (A) 0.4 k/uL (0-1.0); Monocytes % (A) 6 %; Neutrophils # (A) 5.2 k/uL (1.3-7.7); Neutrophils % (A) 76 %; Platelet Count 373 k/uL (150-450); Poikilocytosis Slight; RBC 3.91 m/uL (4.30-5.90); RDW 17.7 % (11.5-15.5); WBC 6.8 k/uL (3.8-10.6)
[2020-04-27] MEDS: MAGNESIUM OXIDE 400 MG TAB PO SCH (08:18)
[2020-04-27] MEDS: FERROUS SULFATE 325 MG TAB PO SCH (08:18)
[2020-04-27] MEDS: POTASSIUM CHLORIDE ER 20 MEQ TAB.ER PO SCH (08:18)
[2020-04-27] MEDS: diphenhydrAMINE 50 MG/ML 1 ML VIAL IVP SCH ×2 (08:20→14:21)
[2020-04-27 09:27] LABS: INR 1.14 (0.90-1.11); Prothrombin Time 12.2 sec (9.9-11.9)
[2020-04-27 09:33] LABS: Erythrocyte Sedimentation Rate 116 mm/hr (0-15)
[2020-04-27 10:06] LABS: African American GFR (CKD) 167.4 (60.0-200.0); Anion Gap 5.4 mmol/L (4.00-12.00); BUN/Creat Ratio 27.5 Ratio (12.00-20.00); Calcium 8.2 mg/dL (8.7-10.3); Carbon Dioxide 23.6 mmol/L (21.6-31.8); Non-African American GFR(CKD) 144.5 (60.0-200.0); Potassium 4.6 mmol/L (3.5-5.5)
--- NOTE | 2020-04-27 11:13 | P.PN ---
Subjective Progress Note Date: 04/27/20 CHIEF COMPLAINT: Stage IV sacral decubitus ulcer HISTORY OF PRESENT ILLNESS: Patient is being followed for his stage IV sacral decubitus ulcer. Patient is on IV antibiotics. Culture is growing MRSA. Af ebrile. Tachycardic. WBC 6.8 Patient still having foul smelling drainage from the pressure ulcer. Patient reports that he is likely being discharged today on IV antibiotics. Infectious disease arranging IV antibiotics for outpatient. PHYSICAL EXAM: VITAL SIGNS: Reviewed. GENERAL: Well-developed in no acute distress. HEENT: No sclera icterus. Extraocular movements grossly intact. Moist buccal mucosa. Head is atraumatic, normocephalic. ABDOMEN: Soft. Nondistended. Nontender. NEUROLOGIC: Alert and oriented. Cranial nerves II through XII grossly intact. SKIN: Stage IV sacral pressure ulcer. Ulceration has granulation tissue present. There is a large amount of purulent foul odor discharge. And there is tunneling noted. No eschar tissue noted ASSESSMENT: 1. Infected stage IV pressure ulcer of the sacrum 2. Chronic osteomyelitis of the sacrum and coccyx 3. Coagulopathy 4. History of DVT and PE anticoagulated with Coumadin PLAN: -No surgical intervention planned -Continue antibiotics -Continue wound care -Stable for discharge from surgical standpoint Physician Cisco Engineer note has been reviewed by physician. Signing provider agrees with the documented findings, assessment, and plan of care. Objective - Vital Signs Vital signs: Vital Signs Temp 98.1 F 04/27/20 07:54 Pulse 109 H 04/27/20 07:54 Resp 20 04/27/20 07:54 BP 101/56 04/27/20 07:54 Pulse Ox 98 04/27/20 00:50 Intake & Output 04/26/20 04/27/20 04/27/20 18:59 06:59 18:59 Output Total 1200 550 Balance -1200 -550 Output: Urine 1200 550 - Labs CBC & Chem 7: 04/27/20 06:30 04/27/20 06:30 Labs: Abnormal Lab Results - Last 24 Hours (Table) 04/27/20 04/27/20 04/27/20 Range/Units 06:30 06:30 06:30 RBC 3.91 L (4.30-5.90) m/uL Hgb 8.7 L (13.0-17.5) gm/dL Hct 28.7 L (39.0-53.0) % MCV 73.4 L (80.0-100.0) fL MCH 22.3 L (25.0-35.0) pg MCHC 30.4 L (31.0-37.0) g/dL RDW 17.7 H (11.5-15.5) % ESR 116 H (0-15) mm/hr PT 12.2 H (9.9-11.9) sec INR 1.14 H (0.90-1.11) Creatinine 0.4 L (0.6-1.5) mg/dL BUN/Creatinine Ratio 27.50 H (12.00-20.00) Ratio Calcium 8.2 L (8.7-10.3) mg/dL Microbiology - Last 24 Hours (Table) 04/23/20 21:04 Blood Culture - Preliminary Blood No Growth after 72 hours
--- NOTE | 2020-04-27 13:39 | P.DS ---
Providers Date of admission: 04/23/20 23:41 Attending physician: Ben Sanches MD Consults: 04/24/20 09:30 Consult Physician Routine Consulting Provider: Ana Zacarias Consult Reason/Comments: infected decub ulcer Do you want consulting provider notified?: Yes 04/24/20 09:31 Consult Physician Routine Consulting Provider: Idris Kang Consult Reason/Comments: decub debridment? 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 The patient was taking ciprofloxacin and Augmentin was following at the [facility] wound care. In the emergency room patient was noted to have a fever of 100.6, pulse 112, blood pressure 111/68 right, 10.2 sacrococcyx x-ray showed destructive changes. The patient was hospitalized he was seen by general surgery and infectious disease throughout his stay. The patient was determined to need no further surgical intervention. Infectious disease recommended changing his antibiotics to daptomycin 6 weeks. The patient has multiple ALLERGIES however he has tolerated the daptomycin with Benadryl he was advised he could have Benadryl oral when necessary. It appears that he mainly has itching as a side effect of the medication. He had negative blood cultures blood cultures were positive for MRSA. Time spent 32 minutes Assessment: The patient without complaints Patient Condition at Discharge: Stable Plan - Discharge Summary New Discharge Prescriptions: New DAPTOmycin [Cubicin] 500 mg IVPB DAILY #42 bag No Action Metoprolol Tartrate [Lopressor] 50 mg PO BID Warfarin Sodium [Coumadin] 6 mg PO HS HYDROcodone/APAP 7.5-325MG [[place] 7.5-325] 1 tab PO TID PRN PRN Reason: Pain Docusate [Colace] 100 mg PO BID Amoxicillin 875 mg PO BID Spironolactone [Aldactone] 50 mg PO DAILY Furosemide [Lasix] 80 mg PO DAILY Ferrous Sulfate [Feosol] 325 mg PO DAILY Potassium Chloride ER [K-Dur 20] 20 meq PO DAILY Magnesium Oxide 400 mg PO DAILY Ciprofloxacin HCl [Cipro] 750 mg PO BID ALPRAZolam [Xanax] 0.25 mg PO BID PRN PRN Reason: Anxiety Discharge Medication List Metoprolol Tartrate [Lopressor] 50 mg PO BID 07/31/14 [History] Warfarin Sodium [Coumadin] 6 mg PO HS 11/11/18 [History] ALPRAZolam [Xanax] 0.25 mg PO BID PRN 04/23/20 [History] Amoxicillin 875 mg PO BID 04/23/20 [History] Ciprofloxacin HCl [Cipro] 750 mg PO BID 04/23/20 [History] Docusate [Colace] 100 mg PO BID 04/23/20 [History] Ferrous Sulfate [Feosol] 325 mg PO DAILY 04/23/20 [History] Furosemide [Lasix] 80 mg PO DAILY 04/23/20 [History] HYDROcodone/APAP 7.5-325MG [[place] 7.5-325] 1 tab PO TID PRN 04/23/20 [History] Magnesium Oxide 400 mg PO DAILY 04/23/20 [History] Potassium Chloride ER [K-Dur 20] 20 meq PO DAILY 04/23/20 [History] Spironolactone [Aldactone] 50 mg PO DAILY 04/23/20 [History] DAPTOmycin [Cubicin] 500 mg IVPB DAILY #42 bag 04/27/20 [Rx] Follow up Appointment(s)/Referral(s): [facility], [REFERRING] - ([facility] will deliver supplies to your house tonight. They will call you first. ) Filipe Castaneda MD [Primary Care Provider] - 1-2 days [place] [NON-STAFF] - As Needed (Wound supplies order faxed to [facility].) [facility]iting Nurse, [NON-STAFF] - Ambulatory/Diagnostic Orders: C Reactive Protein [LAB.AMB] Location: None Selected Complete Blood Count w/diff [LAB.AMB] Location: None Selected Comprehensive Metabolic Panel [LAB.AMB] Location: None Selected Erythrocyte Sedimentation Rate [LAB.AMB] Location: None Selected Patient Instructions/Handouts: MRSA (Methicillin-Resistant Staphylococcus Aureus) (DC) Discharge Disposition: HOME WITH HOME HEALTH SERVICES
[2020-04-27 14:05] VITALS: BP 111/70; PULSE 121; RESP 16; TEMP 97.9
[2020-04-27] MEDS ORDERED: WARFARIN 5 MG TAB PO ONE (18:00)
--- NOTE | 2020-04-30 12:43 | CDI ---
Documentation Clarification Form Date: 04/30/20 From: Ilda Maynard Phone: If you have questions regarding this query, please contact Melissa Luther at [phone]. Admit Date: 04/23/2020 11:41:00 PM Patient Name: Ponce Lam Visit Number: [id number] Discharge Date: 04/27/2020 04:38:00 PM ATTENTION: The Clinical Documentation Specialists (CDI) and [facility] Coding Staff appreciate your assistance in clarifying documentation. Please respond to the clarification below the line at the bottom and electronically sign. The CDI & [facility] Coding staff will review the response and follow-up if needed. Please note: Queries are made part of the Legal Health Record. If you have any questions, please contact the author of this message via ITS. Dr. Ethel Eden The diagnosis sepsis without septic shock was documented in the Dr. Ryan's 04/24 & 04/25 progress notes, but is not noted in subsequent documentation. History/Risk Factors: Infected coccyx/sacral decubitus ulcers, chronic osteomyelitis Clinical Indicators: Elevated WBC, elevated temp. WBC: 10.2 on admission, 12.4 at 05:45 the next day Lactic Acid: 1.3 Blood cultures: No growth Vital signs on admission: T. 99.5, P. 112, R. 18, BP 111/68. Temp on 04/23 100.6 Treatment: ID Consult: 1. Nonhealing wound to sacral area. 2. sacral osteomyelitis. 3. Stage IV pressure ulcer of sacral region Antibiotics: Clindamycin IV then Daptomycin IV Fluid Bolus: NS 1/2 liter Please clarify if the sepsis was Present/active this admission Treated and resolved this admission Ruled out Other, please specify _Sepsis treated and resolved this admission Clinically unable to determine Sepsis without septic shock treated and resolved this admission MTDD
--- NOTE | 2020-04-30 12:56 | CDI ---
Documentation Clarification Form Date: 04/30/20 From: Ilda Maynard Phone: If you have questions regarding this query, please contact Melissa Luther at [phone]. Admit Date: 04/23/2020 11:41:00 PM Patient Name: Ponce Lam Visit Number: [id number] Discharge Date: 04/27/2020 04:38:00 PM ATTENTION: The Clinical Documentation Specialists (CDI) and [facility] Coding Staff appreciate your assistance in clarifying documentation. Please respond to the clarification below the line at the bottom and electronically sign. The CDI & [facility] Coding staff will review the response and follow-up if needed. Please note: Queries are made part of the Legal Health Record. If you have any questions, please contact the author of this message via ITS. Dr. Ethel Eden Conflicting documentation has been found in the medical record: You documented chronic osteomyelitis of left lower leg with draining sinus. Chronic osteomyelitis of the sacrum and coccyx by the attending and other consult doctors. History/Risk Factors: Infected decubitus ulcer of the sacrum/coccyx, chronic osteomyelitis of the coccyx/sacrum Clinical Indicators: Bone destruction of the sacrum Labs: WBC 12.4, sodium 132, creatinine 0.54, glucose 122, AST 99, Alk phos. 956, C-reactive protein 165.4, albumin 3.2 Treatment: IV Clindamycin them IV Daptomycin for 6 weeks In your opinion, what is the most clinically appropriate diagnosis for this patient? Chronic osteomyelitis of the sacrum and coccyx Chronic osteomyelitis of left lower leg with draining sinus Other explanation of clinical findings Unable to determine (no explanation for clinical findings) Associated condition (If applicable): Major osseous defect (specify site_ Other (please specify): MTDD
== END 2020-04-27 16:38 | disposition home health service (06) | DRG 871 ==
LOC: EC 16:53 → 4SSUR 20:16 → OBSVTOIN 23:41 → 4SSUR 04-24 17:24
PROVIDERS: ADMIT Internal Medicine; ATTEND Internal Medicine
DX: A41.9 Sepsis, unspecified organism (principal); L89.154 Pressure ulcer of sacral region, stage 4; E87.1 Hypo-osmolality and hyponatremia; M46.28 Osteomyelitis of vertebra, sacral and sacrococcygeal region; G82.20 Paraplegia, unspecified; B95.62 Methicillin resistant Staphylococcus aureus infection as the cause of diseases classified elsewhere; D50.9 Iron deficiency anemia, unspecified; F17.200 Nicotine dependence, unspecified, uncomplicated; I10 Essential (primary) hypertension; L29.9 Pruritus, unspecified; R53.81 Other malaise; R79.1 Abnormal coagulation profile; Z79.01 Long term (current) use of anticoagulants; Z79.899 Other long term (current) drug therapy; Z86.711 Personal history of pulmonary embolism; Z86.718 Personal history of other venous thrombosis and embolism; Z88.1 Allergy status to other antibiotic agents; Z88.2 Allergy status to sulfonamides; Z95.2 Presence of prosthetic heart valve; Z93.3 Colostomy status; Z93.6 Other artificial openings of urinary tract status; Z98.890 Other specified postprocedural states; Z82.49 Family history of ischemic heart disease and other diseases of the circulatory system
CPT/HCPCS: 36415; 72220; 80048; 80053; 82728; 83540; 83550; 83605; 85025; 85027; 85610; 85652; 86140; 87040; 87070; 87077; 87186; 87205; 96361; 96365; 96375; 96376; 99285

== ENCOUNTER 2020-04-30 15:50 | Inpatient (IN) | payer OTHER ==
[2020-04-30] MEDS ORDERED: SODIUM CHLORIDE 0.9% 1,000 ML IV STA (16:21)
[2020-04-30 16:54] LABS: Anisocytosis Slight; Basophils % (A) 0 %; Eosinophils # (A) 0.1 k/uL (0-0.7); Eosinophils % (A) 1 %; HCT 30.5 % (39.0-53.0); HGB 9.4 gm/dL (13.0-17.5); Hypochromasia Marked; Lymphocytes # (A) 0.7 k/uL (1.0-4.8); Lymphocytes % (A) 6 %; MCH 22.5 pg (25.0-35.0); MCHC 30.9 g/dL (31.0-37.0); MCV 72.7 fL (80.0-100.0); Mean Platelet Volume 6.8; Microcytosis Moderate; Monocytes # (A) 0.3 k/uL (0-1.0); Monocytes % (A) 3 %; Neutrophils # (A) 11.4 k/uL (1.3-7.7); Neutrophils % (A) 90 %; Platelet Count 410 k/uL (150-450); Poikilocytosis Slight; RDW 18.9 % (11.5-15.5); WBC 12.7 k/uL (3.8-10.6)
[2020-04-30 17:05] LABS: ALT 23 U/L (4-49); AST 39 U/L (17-59); African American GFR (CKD) >90 (>60 ml/min/1.73 sqM); Albumin 3.2 g/dL (3.5-5.0); Alkaline Phosphatase 1027 U/L (38-126); Anion Gap 5 mmol/L; Blood Urea Nitrogen 14 mg/dL (9-20); Carbon Dioxide 24 mmol/L (22-30); Chloride 106 mmol/L (98-107); Glucose 146 mg/dL (74-99); Non-African American GFR(CKD) >90 (>60 ml/min/1.73 sqM); Potassium 4.3 mmol/L (3.5-5.1); Sodium 135 mmol/L (137-145); Total Bilirubin 0.9 mg/dL (0.2-1.3); Total Protein 7.7 g/dL (6.3-8.2)
[2020-04-30 17:16] LABS: INR 1.8 (<1.2); Prothrombin Time 17.9 sec (9.0-12.0)
[2020-04-30] MEDS ORDERED: MORPHINE SULFATE 4 MG/ML SYRINGE IVP STA (17:19)
[2020-04-30 17:22] LABS: Partial Thromboplastin Time 139.1 sec (22.0-30.0)
[2020-04-30 17:38] LABS: Appearance,Urine Cloudy (Clear); Bacteria,Urine Rare /hpf; Bilirubin,Urine Negative (Negative); Blood,Urine Moderate (Negative); Budding Yeast,Urine Few /hpf; Color,Urine Light Yellow; Glucose,Urine (UA) Negative (Negative); Ketones,Urine Negative (Negative); Leukocyte Esterase,Urine Negative (Negative); Mucus,Urine Rare /hpf; Nitrite,Urine Negative (Negative); PH, Urine 5.5 (5.0-8.0); Protein,Urine Trace (Negative); RBC,Urine 15 /hpf (0-5); Specific Gravity,Urine 1.008 (1.001-1.035); Urobilinogen,Urine <2.0 mg/dL (<2.0); WBC,Urine 3 /hpf (0-5)
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
[2020-04-30] MEDS ORDERED: ACETAMINOPHEN TAB 325 MG TAB PO PRN (18:04)
[2020-04-30] MEDS ORDERED: NALOXONE 0.4 MG/ML 1 ML VIAL IV PRN (18:04)
[2020-04-30] MEDS: SODIUM CHLORIDE 0.9% 1,000 ML IV SCH (18:38)
[2020-04-30] MEDS ORDERED: DAPTOmycin 500 MG in SODIUM CHLORIDE 0.9% 50 ML IVPB ONE (19:00)
[2020-04-30] MEDS ORDERED: diphenhydrAMINE 50 MG/ML 1 ML VIAL IVP STA (19:36)
[2020-04-30] MEDS ORDERED: HYDROcodone/APAP 7.5-325MG 1 EACH TAB PO PRN (20:24)
[2020-04-30] MEDS ORDERED: ALPRAZolam 0.25 MG TAB PO PRN (20:24)
[2020-04-30] MEDS: DOCUSATE 100 MG CAP PO SCH (20:55)
[2020-04-30] MEDS ORDERED: WARFARIN 3 MG TAB PO ONE (21:00)
[2020-04-30] MEDS: METOPROLOL TARTRATE 50 MG TAB PO SCH (21:30)
[2020-04-30] MEDS: MORPHINE SULFATE 4 MG/ML SYRINGE IV PRN (21:31)
[2020-05-01] MEDS: MORPHINE SULFATE 4 MG/ML SYRINGE IV PRN ×4 (02:05→23:42)
[2020-05-01] MEDS: SODIUM CHLORIDE 0.9% 1,000 ML IV SCH ×3 (02:05→17:31)
[2020-05-01] MEDS: FERROUS SULFATE 325 MG TAB PO SCH (07:17)
[2020-05-01] MEDS: FUROSEMIDE 80 MG TAB PO SCH (07:17)
[2020-05-01] MEDS: SPIRONOLACTONE 25 MG TAB PO SCH (07:17)
[2020-05-01] MEDS: POTASSIUM CHLORIDE ER 20 MEQ TAB.ER PO SCH (07:17)
[2020-05-01] MEDS: DOCUSATE 100 MG CAP PO SCH ×2 (07:17→20:44)
[2020-05-01] MEDS: METOPROLOL TARTRATE 50 MG TAB PO SCH ×2 (07:18→20:44)
[2020-05-01] MEDS: MAGNESIUM OXIDE 400 MG TAB PO SCH (07:18)
[2020-05-01 08:02] LABS: INR 2.1 (<1.2); Prothrombin Time 20.3 sec (9.0-12.0)
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
[2020-05-01 16:03] VITALS: BMI 23.5
[2020-05-01] MEDS: DAPTOmycin 500 MG in SODIUM CHLORIDE 0.9% 50 ML IVPB SCH ×2 (17:36→18:03)
[2020-05-01] MEDS ORDERED: diphenhydrAMINE 50 MG/ML 1 ML VIAL IVP STA (17:54)
[2020-05-01] MEDS ORDERED: WARFARIN 3 MG TAB PO ONE (18:00)
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
[2020-05-01] MEDS: CIPROFLOXACIN HCL 250 MG TAB PO SCH (22:43)
[2020-05-01] MEDS: AMOXICILLIN 875 MG TAB PO SCH (22:44)
[2020-05-02] MEDS: SODIUM CHLORIDE 0.9% 1,000 ML IV SCH ×3 (00:57→17:10)
[2020-05-02 07:00] LABS: Anisocytosis Slight; Basophils % (A) 0 %; Eosinophils # (A) 0.1 k/uL (0-0.7); Eosinophils % (A) 1 %; HCT 26.8 % (39.0-53.0); HGB 8.2 gm/dL (13.0-17.5); Hypochromasia Marked; Lymphocytes % (A) 10 %; MCH 22.9 pg (25.0-35.0); MCHC 30.7 g/dL (31.0-37.0); MCV 74.5 fL (80.0-100.0); Mean Platelet Volume 7.2; Microcytosis Moderate; Monocytes # (A) 0.5 k/uL (0-1.0); Monocytes % (A) 5 %; Neutrophils # (A) 7.8 k/uL (1.3-7.7); Neutrophils % (A) 82 %; Platelet Count 367 k/uL (150-450); Poikilocytosis Slight; RBC 3.59 m/uL (4.30-5.90); RDW 18.9 % (11.5-15.5); WBC 9.5 k/uL (3.8-10.6)
[2020-05-02 07:24] LABS: D-Dimer 1.05 mg/L FEU (<0.60)
[2020-05-02] MEDS: MORPHINE SULFATE 4 MG/ML SYRINGE IV PRN ×2 (07:42→14:05)
[2020-05-02] MEDS: MAGNESIUM OXIDE 400 MG TAB PO SCH (07:43)
[2020-05-02] MEDS: POTASSIUM CHLORIDE ER 20 MEQ TAB.ER PO SCH (07:43)
[2020-05-02] MEDS: CIPROFLOXACIN HCL 250 MG TAB PO SCH (07:43)
[2020-05-02] MEDS: DOCUSATE 100 MG CAP PO SCH (07:43)
[2020-05-02] MEDS: METOPROLOL TARTRATE 50 MG TAB PO SCH (07:43)
[2020-05-02] MEDS: SPIRONOLACTONE 25 MG TAB PO SCH (07:43)
[2020-05-02] MEDS: FERROUS SULFATE 325 MG TAB PO SCH (07:43)
[2020-05-02] MEDS: FUROSEMIDE 80 MG TAB PO SCH (07:44)
--- NOTE | 2020-05-02 09:05 | XR ---
EXAMINATION TYPE: XR chest 1V portable DATE OF EXAM: 05/02/2020 COMPARISON: 11/11/2018 HISTORY: Cough possible pneumonia TECHNIQUE: Single frontal view of the chest is obtained. FINDINGS: Mediport catheter seen and there is postoperative changes involving the vertebral column a nd mediastinum. Heart enlarged and there are subsegmental basilar consolidation. No pneumothorax or o vert failure. Scoliosis noted. IMPRESSION: 1. Basilar atelectasis or early infiltrate correlate clinically.
[2020-05-02 10:05] LABS: INR 2.6 (<1.2); Prothrombin Time 25.6 sec (9.0-12.0)
[2020-05-02 10:20] LABS: African American GFR (CKD) 167.4 (60.0-200.0); Albumin 2.9 g/dL (3.80-4.90); Albumin/Globulin Ratio 1.04 (1.60-3.17); Anion Gap 7.7 mmol/L (4.00-12.00); BUN/Creat Ratio 27.5 Ratio (12.00-20.00); C Reactive Protein 12.6 mg/dL (0.0-0.8); Calcium 8.2 mg/dL (8.7-10.3); Carbon Dioxide 21.3 mmol/L (21.6-31.8); Globulin 2.8 g/dL (1.6-3.3); Non-African American GFR(CKD) 144.5 (60.0-200.0); Potassium 4.4 mmol/L (3.5-5.5); Total Bilirubin 0.6 mg/dL (0.3-1.2); Total Protein 5.7 g/dL (6.2-8.2)
[2020-05-02] MEDS: AMOXICILLIN 875 MG TAB PO SCH (10:37)
--- NOTE | 2020-05-02 14:14 | P.PN ---
Subjective Progress Note Date: 05/02/20 CHIEF COMPLAINT: Fever with stage IV sacral ulcer HISTORY OF PRESENT ILLNESS: Patient is being followed for his stage IV sacral ulcer. He does report pain at the ulcer site. He is followed by infectious disease and wound care service. He is afebrile. White count has normalized to 9.5 hemoglobin 8.2 COVID Negative Chest x-ray basilar atelectasis or early infiltrate PHYSICAL EXAM: VITAL SIGNS: Reviewed. GENERAL: Well-developed in no acute distress. HEENT: No sclera icterus. Extraocular movements grossly intact. Moist buccal mucosa. Head is atraumatic, normocephalic. ABDOMEN: Soft. Nondistended. Nontender. NEUROLOGIC: Alert and oriented. Cranial nerves II through XII grossly intact. Skin: Patient has a large stage IV sacral decubitus ulcer. Granulation tissue is present. Follow odor. Ulcer has less drainage than prior admission. No eschar tissue noted. Tunneling present. ASSESSMENT: 1. Infected stage IV decubitus ulcer with MRSA had been on IV daptomycin at home 2. Chronic osteomyelitis of the sacrum PLAN: -Continue IV antibiotics and wound care -Recommend conservative management -No surgical intervention planned Physician Tanning Wheel Operator note has been reviewed by physician. Signing provider agrees with the documented findings, assessment, and plan of care. Objective - Vital Signs Vital signs: Vital Signs Temp 97.8 F 05/02/20 07:42 Pulse 103 H 05/02/20 07:42 Resp 19 05/02/20 07:42 BP 99/64 05/02/20 07:42 Pulse Ox 99 05/02/20 07:42 Intake & Output 05/01/20 05/02/20 05/02/20 18:59 06:59 18:59 Intake Total 900 Output Total 1850 650 Balance -950 -650 Weight 62.142 kg Intake: Intake, IV Titration 900 Amount Sodium Chloride 0.9% 1, 900 000 ml @ 130 mls/hr IV . Q7H42M [facility] Rx#:[id number] Output: Urine 1850 650 - Labs CBC & Chem 7: 05/02/20 05:47 05/02/20 05:47 Labs: Abnormal Lab Results - Last 24 Hours (Table) 05/02/20 05/02/20 05/02/20 Range/Units 05:47 05:47 05:47 RBC 3.59 L (4.30-5.90) m/uL Hgb 8.2 L (13.0-17.5) gm/dL Hct 26.8 L (39.0-53.0) % MCV 74.5 L (80.0-100.0) fL MCH 22.9 L (25.0-35.0) pg MCHC 30.7 L (31.0-37.0) g/dL RDW 18.9 H (11.5-15.5) % Neutrophils # 7.8 H (1.3-7.7) k/uL PT 25.6 H (9.0-12.0) sec INR 2.6 H (<1.2) D-Dimer 1.05 H (<0.60) mg/L FEU Carbon Dioxide 21.3 L (21.6-31.8) mmol/L Creatinine 0.4 L (0.6-1.5) mg/dL BUN/Creatinine Ratio 27.50 H (12.00-20.00) Ratio Calcium 8.2 L (8.7-10.3) mg/dL Alkaline Phosphatase 905 H (41-126) U/L C-Reactive Protein 12.6 H (0.0-0.8) mg/dL Total Protein 5.7 L (6.2-8.2) g/dL Albumin 2.90 L (3.80-4.90) g/dL Albumin/Globulin Ratio 1.04 L (1.60-3.17) g/dL Procalcitonin (0.02-0.09) ng/mL 05/02/20 Range/Units 05:47 RBC (4.30-5.90) m/uL Hgb (13.0-17.5) gm/dL Hct (39.0-53.0) % MCV (80.0-100.0) fL MCH (25.0-35.0) pg MCHC (31.0-37.0) g/dL RDW (11.5-15.5) % Neutrophils # (1.3-7.7) k/uL PT (9.0-12.0) sec INR (<1.2) D-Dimer (<0.60) mg/L FEU Carbon Dioxide (21.6-31.8) mmol/L Creatinine (0.6-1.5) mg/dL BUN/Creatinine Ratio (12.00-20.00) Ratio Calcium (8.7-10.3) mg/dL Alkaline Phosphatase (41-126) U/L C-Reactive Protein (0.0-0.8) mg/dL Total Protein (6.2-8.2) g/dL Albumin (3.80-4.90) g/dL Albumin/Globulin Ratio (1.60-3.17) g/dL Procalcitonin 0.12 H (0.02-0.09) ng/mL Microbiology - Last 24 Hours (Table) 04/30/20 16:49 Blood Culture - Preliminary Blood No Growth after 24 hours
[2020-05-02 14:26] VITALS: BP 117/72; PULSE 99; RESP 16; TEMP 98.8
--- NOTE | 2020-05-02 16:43 | PN ---
PROGRESS NOTE DATE OF SERVICE: 05/02/2020 REASON FOR FOLLOW UP: 1. Sacral osteomyelitis. 2. [QAMARKER and ]diarrhea. INTERVAL HISTORY: The patient is currently afebrile. No fever has been been formed now in the last 22 hours's and the patient denies having any heart pain, no cough, no abdominal pain, no diarrhea. The patient denies having chest pain. Occasional cough. No abdominal pain. Complaining of diarrhea. PHYSICAL EXAM: Blood pressure 113/72 with a pulse of 99, temperature 98.2, pulse ox v2 L nasal cannula. Patient is a middle-aged male, lying in bed in no distress. TEMPERATURE: 98.8 RESPIRATORY SYSTEM: Unlabored breathing clear to auscultation. Breath sounds clear, no wheeze. HEART: S1, S2. Regular rate and rhythm. ABDOMEN: Soft, no tenderness. LABORATORY STUDIES: Hemoglobin 8.5, white count 9.5, BUN of 9, creatinine 2.4. DIAGNOSTIC IMPRESSION AND PLAN: Patient admitted to the hospital with a fever, in this patient workup with COVID- 19 has been negative. Chest x-ray pain showing some consolidation. He did have osteomyelitis with bronch culture positive with MRSA and covered with daptomycin. He is complaining of some diarrhea with cultures pending. If negative, should be able to go home on IV daptomycin. Local wound care per wound care team and close outpatient followup. Discussed with the admitting physician working on discharge. ANGELICA / MARYLOU: [id number] /
[2020-05-02] MEDS ORDERED: WARFARIN 3 MG TAB PO ONE (18:00)
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
== END 2020-05-02 17:01 | disposition home health service (06) | DRG 637 ==
LOC: EC 15:50 → 4SSUR 18:04
PROVIDERS: ADMIT Hospitalist; ATTEND Hospitalist
DX: E11.69 Type 2 diabetes mellitus with other specified complication (principal); L89.154 Pressure ulcer of sacral region, stage 4; G82.20 Paraplegia, unspecified; M46.28 Osteomyelitis of vertebra, sacral and sacrococcygeal region; K52.1 Toxic gastroenteritis and colitis; J98.11 Atelectasis; F41.9 Anxiety disorder, unspecified; F17.200 Nicotine dependence, unspecified, uncomplicated; I10 Essential (primary) hypertension; M19.90 Unspecified osteoarthritis, unspecified site; Z20.828 Contact with and (suspected) exposure to other viral communicable diseases; T36.95XA Adverse effect of unspecified systemic antibiotic, initial encounter; Z79.899 Other long term (current) drug therapy; Z79.01 Long term (current) use of anticoagulants; Z95.2 Presence of prosthetic heart valve; Z93.3 Colostomy status; Z86.718 Personal history of other venous thrombosis and embolism; Z86.711 Personal history of pulmonary embolism; Z82.49 Family history of ischemic heart disease and other diseases of the circulatory system; Z88.1 Allergy status to other antibiotic agents; Z88.2 Allergy status to sulfonamides; Z88.8 Allergy status to other drugs, medicaments and biological substances; Z86.14 Personal history of Methicillin resistant Staphylococcus aureus infection; Z98.890 Other specified postprocedural states; T14.8XXS Other injury of unspecified body region, sequela; V89.2XXS Person injured in unspecified motor-vehicle accident, traffic, sequela
CPT/HCPCS: 36415; 71045; 80053; 81001; 83605; 83615; 84145; 85025; 85379; 85610; 85730; 86140; 87040; 87324; 87635; 96361; 96365; 96375; 99284

== ENCOUNTER 2020-05-05 21:56 | Inpatient (IN) | payer OTHER ==
[2020-05-05] MEDS ORDERED: SODIUM CHLORIDE 0.9% 500 ML 500 ML IV STA (22:04)
[2020-05-05] MEDS ORDERED: PIPERACILLIN-TAZOBACTAM 3.375 GM in SODIUM CHLORIDE 0.9% 100 ML IVPB STA (22:04)
[2020-05-05] MEDS ORDERED: SODIUM CHLORIDE 0.9% 1,000 ML IV STA ×2 (22:04)
[2020-05-05] MEDS ORDERED: ACETAMINOPHEN TAB 325 MG TAB PO STA (22:04)
[2020-05-05] MEDS ORDERED: ONDANSETRON 4 MG/2 ML VIAL IVP STA (22:04)
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
[2020-05-05] MEDS ORDERED: diphenhydrAMINE 50 MG/ML 1 ML VIAL IVP STA (22:21)
[2020-05-05] MEDS ORDERED: HYDROmorphone 0.5 MG/0.5 ML SYRINGE IVP STA (22:21)
[2020-05-05] MEDS ORDERED: LEVOFLOXACIN 750MG-D5W PMX 750 MG in DEXTROSE/WATER 1 150ML.BAG IVPB STA (22:21)
[2020-05-05 22:49] LABS: Anisocytosis Slight; Basophils % (A) 0 %; Eosinophils # (A) 0.2 k/uL (0-0.7); Eosinophils % (A) 2 %; HCT 27.3 % (39.0-53.0); HGB 8.5 gm/dL (13.0-17.5); Hypochromasia Moderate; Lymphocytes # (A) 0.6 k/uL (1.0-4.8); Lymphocytes % (A) 5 %; MCH 22.2 pg (25.0-35.0); MCHC 31.1 g/dL (31.0-37.0); MCV 71.6 fL (80.0-100.0); Mean Platelet Volume 6.7; Microcytosis Marked; Monocytes # (A) 0.4 k/uL (0-1.0); Monocytes % (A) 3 %; Neutrophils % (A) 89 %; Platelet Count 429 k/uL (150-450); Poikilocytosis Slight; RBC 3.81 m/uL (4.30-5.90); RDW 19.5 % (11.5-15.5); WBC 12.3 k/uL (3.8-10.6)
[2020-05-05 22:58] LABS: INR 4.9 (<1.2); Partial Thromboplastin Time 57.4 sec (22.0-30.0)
[2020-05-05 23:07] LABS: ALT 16 U/L (4-49); AST 22 U/L (17-59); African American GFR (CKD) >90 (>60 ml/min/1.73 sqM); Albumin 2.7 g/dL (3.5-5.0); Alkaline Phosphatase 885 U/L (38-126); Anion Gap 7 mmol/L; Blood Urea Nitrogen 16 mg/dL (9-20); Calcium 8.1 mg/dL (8.4-10.2); Carbon Dioxide 22 mmol/L (22-30); Chloride 106 mmol/L (98-107); Glucose 127 mg/dL (74-99); Non-African American GFR(CKD) >90 (>60 ml/min/1.73 sqM); Sodium 135 mmol/L (137-145); Total Bilirubin 0.6 mg/dL (0.2-1.3); Total Protein 6.3 g/dL (6.3-8.2)
--- NOTE | 2020-05-05 23:43 | XR ---
EXAM: XR Chest, 2 Views CLINICAL HISTORY: ITS.REASON XR Reason: fever TECHNIQUE: Frontal and lateral views of the chest. COMPARISON: Chest x-ray dated 06/17/2017, 11/11/2018 and 05/02/2020 FINDINGS: Lungs: Question left hilar opacity which may be infectious or inflammatory. Pleural space: Unremarkable. Heart: Unremarkable. Mediastinum: Unremarkable. Bones/joints: Evidence of prior median sternotomy and aortic valve prosthesis. Orthopedic hardware noted within the spine. Tubes, lines and devices: Right IJ Port-A-Cath with tip at the cavoatrial junction. IMPRESSION: Question left hilar opacity which may be infectious or inflammatory.
[2020-05-06] MEDS ORDERED: NALOXONE 0.4 MG/ML 1 ML VIAL IV PRN (00:30)
[2020-05-06 02:15] LABS: Appearance,Urine Cloudy (Clear); Color,Urine Yellow
[2020-05-06 02:16] LABS: Bilirubin,Urine Negative (Negative); Glucose,Urine (UA) Negative (Negative); Ketones,Urine Negative (Negative); Protein,Urine 2+ (Negative); Specific Gravity,Urine 1.019 (1.001-1.035)
[2020-05-06 02:17] LABS: Blood,Urine Moderate (Negative); Leukocyte Esterase,Urine Moderate (Negative); Nitrite,Urine Negative (Negative); Urobilinogen,Urine <2.0 mg/dL (<2.0)
[2020-05-06 02:22] LABS: WBC,Urine 5 /hpf (0-5)
[2020-05-06 02:23] LABS: RBC,Urine 4 /hpf (0-5); Squamous Epithelial Cell,Urine 1 /hpf (0-4)
[2020-05-06 02:24] LABS: Budding Yeast,Urine Few /hpf
[2020-05-06] MEDS: HYDROmorphone 0.5 MG/0.5 ML SYRINGE IVP PRN ×5 (02:51→21:47)
[2020-05-06] MEDS ORDERED: ALPRAZolam 0.25 MG TAB PO PRN (04:01)
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
[2020-05-06] MEDS ORDERED: DAPTOmycin 500 MG VIAL IVPB SCH (09:00)
[2020-05-06] MEDS: FERROUS SULFATE 325 MG TAB PO SCH (09:34)
[2020-05-06] MEDS: PIPERACILLIN-TAZOBACTAM 3.375 GM in SODIUM CHLORIDE 0.9% 100 ML IVPB SCH ×4 (09:34→22:52)
[2020-05-06] MEDS: MAGNESIUM OXIDE 400 MG TAB PO SCH (09:34)
[2020-05-06] MEDS: FLUCONAZOLE 100 MG TAB PO SCH (09:34)
[2020-05-06] MEDS: POTASSIUM CHLORIDE ER 20 MEQ TAB.ER PO SCH (09:35)
[2020-05-06] MEDS: SPIRONOLACTONE 25 MG TAB PO SCH (09:35)
--- NOTE | 2020-05-06 09:56 | P.PN ---
Progress Note - Text Progress Note Date: 05/06/20 Patient seen and examined at bedside. Analysis showed yeast in the urine. Diflucan will be started. Patient denies chest pain, shortness of breath, nausea, vomiting, fever, or chills.
[2020-05-06] MEDS ORDERED: diphenhydrAMINE 50 MG CAP PO PRN (10:04)
[2020-05-06] MEDS ORDERED: HYDROcodone/APAP 7.5-325MG 1 EACH TAB PO PRN (11:10)
[2020-05-06] MEDS: diphenhydrAMINE 50 MG/ML 1 ML VIAL IVP PRN ×3 (11:43→22:51)
[2020-05-06 12:13] LABS: Anisocytosis Slight; HCT 26.2 % (39.0-53.0); HGB 8.1 gm/dL (13.0-17.5); Hypochromasia Marked; MCH 22.7 pg (25.0-35.0); MCHC 30.7 g/dL (31.0-37.0); Mean Platelet Volume 6.8; Microcytosis Moderate; Platelet Count 392 k/uL (150-450); Poikilocytosis Slight; RBC 3.54 m/uL (4.30-5.90); RDW 19.4 % (11.5-15.5); WBC 11.7 k/uL (3.8-10.6)
[2020-05-06 12:29] LABS: ALT 13 U/L (4-49); AST 19 U/L (17-59); African American GFR (CKD) >90 (>60 ml/min/1.73 sqM); Albumin 2.4 g/dL (3.5-5.0); Alkaline Phosphatase 783 U/L (38-126); Anion Gap 3 mmol/L; Blood Urea Nitrogen 12 mg/dL (9-20); Calcium 7.9 mg/dL (8.4-10.2); Carbon Dioxide 23 mmol/L (22-30); Chloride 107 mmol/L (98-107); Glucose 94 mg/dL (74-99); Non-African American GFR(CKD) >90 (>60 ml/min/1.73 sqM); Potassium 4.2 mmol/L (3.5-5.1); Sodium 133 mmol/L (137-145); Total Bilirubin 0.7 mg/dL (0.2-1.3); Total Protein 5.9 g/dL (6.3-8.2)
[2020-05-06 12:53] LABS: INR 4.7 (<1.2); Prothrombin Time 46.3 sec (9.0-12.0)
[2020-05-06] MEDS: DAPTOmycin 500 MG in SODIUM CHLORIDE 0.9% 50 ML IVPB SCH (15:53)
[2020-05-06] MEDS ORDERED: WARFARIN 0.5 MG TAB PO ONE (18:00)
[2020-05-06] MEDS: ACETAMINOPHEN TAB 325 MG TAB PO PRN (18:46)
[2020-05-06] MEDS ORDERED: SODIUM CHLORIDE 0.9% 500 ML 500 ML IV ONE (23:09)
[2020-05-07] MEDS: HYDROmorphone 0.5 MG/0.5 ML SYRINGE IVP PRN ×4 (01:59→19:58)
[2020-05-07] MEDS: ACETAMINOPHEN TAB 325 MG TAB PO PRN ×2 (02:07→19:59)
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
[2020-05-07] MEDS: SPIRONOLACTONE 25 MG TAB PO SCH (08:07)
[2020-05-07] MEDS: POTASSIUM CHLORIDE ER 20 MEQ TAB.ER PO SCH (08:07)
[2020-05-07] MEDS: FLUCONAZOLE 100 MG TAB PO SCH (08:07)
[2020-05-07] MEDS: MAGNESIUM OXIDE 400 MG TAB PO SCH (08:07)
[2020-05-07] MEDS: FERROUS SULFATE 325 MG TAB PO SCH (08:07)
[2020-05-07] MEDS: PIPERACILLIN-TAZOBACTAM 3.375 GM in SODIUM CHLORIDE 0.9% 100 ML IVPB SCH ×3 (08:08→23:58)
[2020-05-07] MEDS: diphenhydrAMINE 50 MG/ML 1 ML VIAL IVP PRN ×3 (08:15→23:58)
[2020-05-07 09:21] LABS: Prothrombin Time 49.6 sec (9.0-12.0)
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
--- NOTE | 2020-05-07 13:35 | P.PN ---
Subjective Progress Note Date: 05/07/20 Patient seen and examined at bedside. New complaints overnight. Denies chest pain, shortness breath, nausea, fever, or chills. Objective - Vital Signs Vital signs: Vital Signs Temp 98.1 F 05/07/20 12:26 Pulse 116 H 05/07/20 12:26 Resp 20 05/07/20 12:26 BP 116/69 05/07/20 12:26 Pulse Ox 100 05/07/20 12:26 Intake & Output 05/06/20 05/07/20 05/07/20 18:59 06:59 18:59 Intake Total 462 780 120 Output Total 600 600 Balance -138 180 120 Intake: Oral 462 780 120 Output: Urine 600 600 Other: Voiding Method Ileal Conduit (Left) Ileal Conduit (Left) Ileal Conduit (Left) - Exam General: [non toxic], [no distress], [appears at stated age] Derm: [warm], [dry] Head: [atraumatic], [normocephalic], [symmetric] Eyes: [EOMI], [no lid lag], [anicteric sclera] Mouth: [no lip lesion], [mucus membranes moist] Cardiovascular: [S1S2 reg], [no murmur], [positive posterior tibial pulse bilateral], Lungs: [CTA bilateral], [no rhonchi, no rales] , [no accessory muscle use] Abdominal: [soft], [ nontender to palpation], [no guarding], [no appreciable organomegaly] Ext: [no gross muscle atrophy], [no edema], [no contractures] Neuro: [ CN II-XI grossly intact], [no focal neuro deficits] Psych: [Alert], [oriented], [appropriate affect] - Labs CBC & Chem 7: 05/06/20 11:30 05/06/20 11:30 Labs: Abnormal Lab Results - Last 24 Hours (Table) 05/07/20 05/07/20 05/07/20 Range/Units 08:57 08:57 08:57 ESR 121 H (0-15) mm/hr PT 49.6 H (9.0-12.0) sec INR 5.0 H (<1.2) C-Reactive Protein 193.8 H (<10.0) mg/L Microbiology - Last 24 Hours (Table) 05/05/20 22:51 Blood Culture - Preliminary Blood No Growth after 24 hours 05/05/20 22:34 Blood Culture - Preliminary Blood No Growth after 24 hours Assessment and Plan Assessment: Patient is a 44-year-old male with a PMH of paraplegia, chronic large nonhealing coccygeal ulcer (multiple surgeries including muscle flap and subsequent wound dehiscence), colostomy, urostomy, bovine tricuspid valve replacement, history of DVT and PE on Coumadin, and hypertension, and multiple recent admissions with recent MRSA culture positive from the wound and subsequent discharge to home with daptomycin who now presented to the emergency room with complaints of ongoing fevers and lower back pain surrounding the ulcer. The patient notes that he had been getting home care nurse at home had been changing his dressings but he has questioned whether the daptomycin is working since he continued to have fevers.. Sepsis suspected secondary to nonhealing large coccygeal ulcer vs endocarditis -Continue with home daptomycin -C/w Zosyn -Pain control -ID and wound care consults -Follow up blood cultures - no growth -IV fluids Supratherapeutic INR -Hold Coumadin -Monitor for now Chronic conditions: HTN, HLD, DVT/PE -C/w home meds DVT prophylaxis -Coumadin AM labs
[2020-05-07] MEDS: DAPTOmycin 500 MG in SODIUM CHLORIDE 0.9% 50 ML IVPB SCH (16:28)
[2020-05-07] MEDS ORDERED: WARFARIN 0.5 MG TAB PO ONE (18:00)
--- NOTE | 2020-05-07 22:49 | PN ---
PROGRESS NOTE DATE OF SERVICE: 05/07/2020 REASON FOR FOLLOWUP: 1. Infected sacral pressure ulcer. 2. Possible pneumonia. INTERVAL HISTORY: The patient did spike a fever last night of 101.9. The patient has been afebrile since then. He has been on room air, saturating 100%. Denies having any chest pain or shortness of breath. He did have some cough. No abdominal pain or diarrhea. PHYSICAL EXAMINATION: Blood pressure 122/71, pulse 115, temperature 100.2. He is 100% on room air. General description is a middle-aged male lying in bed in no distress. RESPIRATORY SYSTEM: Unlabored breathing with decreased breath sounds at the base. No wheeze. HEART: S1, S2. Regular rate and rhythm. ABDOMEN: Soft. No tenderness. Sacral wound did have slough tissue in the bottom. No surrounding redness. LABS: Hemoglobin 8.1, white count 11.7, BUN of 12, creatinine 0.42. DIAGNOSTIC IMPRESSION AND PLAN: Patient admitted to hospital with a fever in this patient who did have sacral osteomyelitis, chronic nonhealing wound with methicillin-resistant Staphylococcus aeruginosa infection. Patient's fever presumably related to pneumonia, as no worsening of the sacral wound has been noticed. Plan to continue daptomycin and Zosyn. Will obtain a CT of the sacral area to make sure no evidence of any abscess, and continue with supportive care. MMODL / IJN: [id number] /
[2020-05-08] MEDS: HYDROmorphone 0.5 MG/0.5 ML SYRINGE IVP PRN ×6 (01:22→22:25)
[2020-05-08] MEDS: FERROUS SULFATE 325 MG TAB PO SCH (08:20)
[2020-05-08] MEDS: POTASSIUM CHLORIDE ER 20 MEQ TAB.ER PO SCH (08:20)
[2020-05-08] MEDS: MAGNESIUM OXIDE 400 MG TAB PO SCH (08:21)
[2020-05-08] MEDS: FLUCONAZOLE 100 MG TAB PO SCH (08:21)
[2020-05-08] MEDS: SPIRONOLACTONE 25 MG TAB PO SCH (08:21)
[2020-05-08] MEDS: diphenhydrAMINE 50 MG/ML 1 ML VIAL IVP PRN ×3 (08:21→23:51)
[2020-05-08] MEDS: PIPERACILLIN-TAZOBACTAM 3.375 GM in SODIUM CHLORIDE 0.9% 100 ML IVPB SCH ×3 (08:31→23:49)
[2020-05-08 08:46] LABS: Anisocytosis Slight; Basophils % (A) 0 %; Eosinophils # (A) 0.1 k/uL (0-0.7); Eosinophils % (A) 1 %; HCT 27.1 % (39.0-53.0); HGB 8.2 gm/dL (13.0-17.5); Hypochromasia Marked; Lymphocytes # (A) 0.4 k/uL (1.0-4.8); Lymphocytes % (A) 4 %; MCH 22.2 pg (25.0-35.0); MCHC 30.2 g/dL (31.0-37.0); MCV 73.5 fL (80.0-100.0); Mean Platelet Volume 6.5; Microcytosis Moderate; Monocytes # (A) 0.3 k/uL (0-1.0); Monocytes % (A) 4 %; Neutrophils # (A) 8.1 k/uL (1.3-7.7); Neutrophils % (A) 90 %; Platelet Count 389 k/uL (150-450); Poikilocytosis Slight; RBC 3.69 m/uL (4.30-5.90)
[2020-05-08 09:32] LABS: ALT 13 U/L (4-49); AST 23 U/L (17-59); African American GFR (CKD) >90 (>60 ml/min/1.73 sqM); Albumin 2.4 g/dL (3.5-5.0); Alkaline Phosphatase 936 U/L (38-126); Anion Gap 6 mmol/L; Blood Urea Nitrogen 10 mg/dL (9-20); Carbon Dioxide 21 mmol/L (22-30); Chloride 108 mmol/L (98-107); Glucose 93 mg/dL (74-99); Non-African American GFR(CKD) >90 (>60 ml/min/1.73 sqM); Sodium 135 mmol/L (137-145); Total Bilirubin 1.3 mg/dL (0.2-1.3)
--- NOTE | 2020-05-08 12:36 | P.PN ---
Subjective Progress Note Date: 05/08/20 Pt continues to report chills, fevers, sweats. Ongoing pain in his lower back and spine. Objective - Vital Signs Vital signs: Vital Signs Temp 98 F 05/08/20 11:34 Pulse 120 H 05/08/20 11:34 Resp 20 05/08/20 11:34 BP 114/65 05/08/20 11:34 Pulse Ox 100 05/08/20 08:00 Intake & Output 05/07/20 05/08/20 05/08/20 18:59 06:59 18:59 Intake Total 740 1080 477 Output Total 300 Balance 740 780 477 Weight 75 kg Intake: Intake, IV Titration 500 Amount DAPTOmycin 500 mg In 400 Sodium Chloride 0.9% 50 ml @ 100 mls/hr IVPB Q24H [facility] Rx#:[id number] Piperacillin-Tazobactam 3 100 .375 gm In Sodium Chloride 0.9% 100 ml @ 25 mls/hr IVPB Q8HR [facility] Rx# :[id number] Oral 240 1080 477 Output: Urine 300 Other: Voiding Method Ileal Conduit (Left) Ileal Conduit (Left) Ileal Conduit (Left) # Bowel Movements 2 - Exam Gen: awake, alert HEENT: normocephalic, atraumatic, good hearing acuity, moist mucous membranes Resp: good air exchange, breathing comfortably with no accessory muscle use CVS: good distal perfusion x 4, GI: soft, NTTP, ND : no SPT, no CVAT, gould catheter is present MSK: no pitting edema, no clubbing, full-thickness stage IV sacral decubitus u lcer, with pustular, foul-smelling odor Neuro: non-focal, moving upper extremities Psych: cooperative, euthymic mood - Labs CBC & Chem 7: 05/08/20 08:25 05/08/20 08:25 Labs: Abnormal Lab Results - Last 24 Hours (Table) 05/07/20 05/08/20 05/08/20 Range/Units 08:57 08:25 08:25 RBC 3.69 L (4.30-5.90) m/uL Hgb 8.2 L (13.0-17.5) gm/dL Hct 27.1 L (39.0-53.0) % MCV 73.5 L (80.0-100.0) fL MCH 22.2 L (25.0-35.0) pg MCHC 30.2 L (31.0-37.0) g/dL RDW 20.0 H (11.5-15.5) % Neutrophils # 8.1 H (1.3-7.7) k/uL Lymphocytes # 0.4 L (1.0-4.8) k/uL PT 39.0 H (9.0-12.0) sec INR 4.0 H (<1.2) Sodium (137-145) mmol/L Chloride (98-107) mmol/L Carbon Dioxide (22-30) mmol/L Creatinine (0.66-1.25) mg/dL Calcium (8.4-10.2) mg/dL Alkaline Phosphatase (38-126) U/L Total Protein (6.3-8.2) g/dL Albumin (3.5-5.0) g/dL Procalcitonin 0.30 H (0.02-0.09) ng/mL 05/08/20 Range/Units 08:25 RBC (4.30-5.90) m/uL Hgb (13.0-17.5) gm/dL Hct (39.0-53.0) % MCV (80.0-100.0) fL MCH (25.0-35.0) pg MCHC (31.0-37.0) g/dL RDW (11.5-15.5) % Neutrophils # (1.3-7.7) k/uL Lymphocytes # (1.0-4.8) k/uL PT (9.0-12.0) sec INR (<1.2) Sodium 135 L (137-145) mmol/L Chloride 108 H (98-107) mmol/L Carbon Dioxide 21 L (22-30) mmol/L Creatinine 0.44 L (0.66-1.25) mg/dL Calcium 8.0 L (8.4-10.2) mg/dL Alkaline Phosphatase 936 H (38-126) U/L Total Protein 6.0 L (6.3-8.2) g/dL Albumin 2.4 L (3.5-5.0) g/dL Procalcitonin (0.02-0.09) ng/mL Microbiology - Last 24 Hours (Table) 05/06/20 23:36 Blood Culture - Preliminary Blood No Growth after 24 hours 05/05/20 22:51 Blood Culture - Preliminary Blood No Growth after 48 hours 05/05/20 22:34 Blood Culture - Preliminary Blood No Growth after 48 hours Assessment and Plan Assessment: Patient is a 44-year-old male with a PMH of paraplegia, chronic large nonhealing coccygeal ulcer (multiple surgeries including muscle flap and subsequent wound dehiscence), colostomy, urostomy, bovine tricuspid valve replacement, history of DVT and PE on Coumadin, and hypertension, and multiple recent admissions with recent MRSA culture positive from the wound and subsequent discharge to home with daptomycin who now presented to the emergency room with complaints of ongoing fevers and lower back pain surrounding the ulcer. The patient notes that he had been getting home care nurse at home had been changing his dressings but he has questioned whether the daptomycin is working since he continued to have fevers.. Sepsis suspected secondary to nonhealing large coccygeal ulcer vs endocarditis -Continue with home daptomycin -C/w Zosyn -Pain control -ID and wound care consults -Follow up blood cultures - no growth -IV fluids Supratherapeutic INR -Hold Coumadin -Monitor for now Chronic conditions: HTN, HLD, DVT/PE -C/w home meds DVT prophylaxis -Coumadin AM labs
[2020-05-08] MEDS ORDERED: LACTATED RINGERS 1,000 ML IV ONE (12:45)
[2020-05-08] MEDS: DAPTOmycin 500 MG in SODIUM CHLORIDE 0.9% 50 ML IVPB SCH (16:38)
--- NOTE | 2020-05-08 16:56 | CT ---
EXAMINATION TYPE: CT sacrum wo con DATE OF EXAM: 05/08/2020 COMPARISON: None HISTORY: Buttocks wound CT DLP: 1087.2 mGycm Automated exposure control for dose reduction was used. Images were obtained from the level of L2 vertebra to the bottom of the coccyx without contrast. There is posterior multilevel fusion surgery in the lower lumbar spine extending down to S2 vertebra. There are multiple soft tissue air bubbles posteriorly at the level of S4 and S5. These are adjacent to the bone. There are bubbles at the coccyx. Coccyx not well defined. There could BE destructive luis eduardo nges of the coccyx. The sacroiliac joints are anatomic. I see no fracture line. IMPRESSION: Soft tissue air with apparent destructive changes of S5 vertebra and the coccyx consistent with chron ic osteomyelitis. Subcutaneous fat stranding and inflammatory changes posterior to the sacrum and beulah cyx.
--- NOTE | 2020-05-08 17:12 | CT ---
EXAMINATION TYPE: CT chest wo con DATE OF EXAM: 05/08/2020 COMPARISON: None HISTORY: Shortness of breath and congestion CT DLP: 356.1 mGycm Automated exposure control for dose reduction was used. Images were obtained from the thoracic inlet to the diaphragm with no contrast. There is mild bilateral pleural effusions. There is small pericardial effusion. Heart is borderline e nlarged. There are sternal wires. Thoracic aorta is intact. There is rounded 4.3 cm fluid density in the anterior mediastinum that could be a pericardial cyst. There is some mild infiltrate and atelectasis at the lung bases. The trachea is intact. There are sternal wires. There is paraspinal horacio stabilizing the thoracic spine. I see no significant compression deformity in the thoracic spine. There is no thoracic paraspinal mass. IMPRESSION: Pleural effusions and small pericardial effusion. Cystic anterior mediastinal mass could BE pericardi al cyst. Also consider thymic cystic tumor. Subcutaneous edema around the chest.
[2020-05-08] MEDS ORDERED: WARFARIN 0.5 MG TAB PO ONE (18:00)
[2020-05-08] MEDS: ACETAMINOPHEN TAB 325 MG TAB PO PRN (19:47)
--- NOTE | 2020-05-08 22:25 | PN ---
PROGRESS NOTE DATE OF SERVICE: 05/08/2020 REASON FOR FOLLOWUP: Fever and sacral osteomyelitis. INTERVAL HISTORY: The patient has been running a low-grade fever, especially in the evening. He is currently on room air, saturating 100%. The patient denies having any chest pain. He has been complaining of Zosyn causing his mouth to be dry. No nausea, vomiting, abdominal pain or diarrhea. PHYSICAL EXAMINATION: Blood pressure 123/72 with a pulse of 116, temperature 100.6. He is 100% on room air. General description is a middle-aged male lying in bed in no distress. RESPIRATORY SYSTEM: Unlabored breathing with decreased intensity of breath sounds. No wheeze. HEART: S1, S2. Regular rate and rhythm. ABDOMEN: Soft. No tenderness. LABS: Hemoglobin 8.9, white count 9.0. BUN of 10, creatinine 0.44. DIAGNOSTIC IMPRESSION AND PLAN: Patient with a fever. Source is likely sacral osteomyelitis with a CT that shows evidence of sacral destruction but did not mention any abscess. CT chest did not show any pneumonia. The patient may need a biopsy of his sacral area for further confirmation of the pathological agent and antibiotic adjustment. Will discuss with Surgery as well as with Interventional Radiology and continue supportive care. MMODL / IJN: [id number] /
[2020-05-09 07:19] LABS: INR 3.1 (<1.2); Prothrombin Time 30.6 sec (9.0-12.0)
[2020-05-09] MEDS: POTASSIUM CHLORIDE ER 20 MEQ TAB.ER PO SCH (08:02)
[2020-05-09] MEDS: FLUCONAZOLE 100 MG TAB PO SCH (08:03)
[2020-05-09] MEDS: FERROUS SULFATE 325 MG TAB PO SCH (08:03)
[2020-05-09] MEDS: diphenhydrAMINE 50 MG/ML 1 ML VIAL IVP PRN ×3 (08:03→23:48)
[2020-05-09] MEDS: SPIRONOLACTONE 25 MG TAB PO SCH (08:03)
[2020-05-09] MEDS: MAGNESIUM OXIDE 400 MG TAB PO SCH (08:03)
[2020-05-09] MEDS: HYDROmorphone 0.5 MG/0.5 ML SYRINGE IVP PRN ×5 (08:04→23:48)
[2020-05-09] MEDS: PIPERACILLIN-TAZOBACTAM 3.375 GM in SODIUM CHLORIDE 0.9% 100 ML IVPB SCH ×3 (08:24→23:47)
--- NOTE | 2020-05-09 11:05 | P.PN ---
Subjective Progress Note Date: 05/09/20 Pt continues to report night sweats over night. CT Chest, Sacrum yesterday with some air in chronic wound, also with some sternal edema. Objective - Vital Signs Vital signs: Vital Signs Temp 97.7 F 05/09/20 08:00 Pulse 113 H 05/09/20 08:00 Resp 18 05/09/20 08:00 BP 118/71 05/09/20 08:00 Pulse Ox 99 05/09/20 08:00 Intake & Output 05/08/20 05/09/20 05/09/20 18:59 06:59 18:59 Intake Total 3134 640 Output Total 550 500 450 Balance 2584 -500 190 Weight 139.75 kg Intake: IV 100 Piperacillin-Tazobactam 3 100 .375 gm In Sodium Chloride 0.9% 100 ml @ 25 mls/hr IVPB Q8HR [facility] Rx# :[id number] Intake, IV Titration 1100 Amount Lactated Ringers 1,000 ml 1000 @ 999 mls/hr IV .Q1H1M [facility] Rx#:[id number] Piperacillin-Tazobactam 3 100 .375 gm In Sodium Chloride 0.9% 100 ml @ 25 mls/hr IVPB Q8HR [facility] Rx# :[id number] Oral 2034 540 Output: Urine 550 500 450 Other: Voiding Method Ileal Conduit (Left) Ileal Conduit (Left) Ileal Conduit (Left) - Exam Gen: awake, alert HEENT: normocephalic, atraumatic, good hearing acuity, moist mucous membranes Resp: good air exchange, breathing comfortably with no accessory muscle use CVS: good distal perfusion x 4, GI: soft, NTTP, ND : no SPT, no CVAT, gould catheter is present MSK: no pitting edema, no clubbing, full-thickness stage IV sacral decubitus ulcer, with pustular, foul-smelling odor Neuro: non-focal, moving upper extremities Psych: cooperative, euthymic mood - Labs CBC & Chem 7: 05/08/20 08:25 05/08/20 08:25 Labs: Abnormal Lab Results - Last 24 Hours (Table) 05/09/20 05/09/20 Range/Units 06:40 06:40 ESR 114 H (0-15) mm/hr PT 30.6 H (9.0-12.0) sec INR 3.1 H (<1.2) Microbiology - Last 24 Hours (Table) 05/06/20 23:36 Blood Culture - Preliminary Blood No Growth after 48 hours 05/05/20 22:51 Blood Culture - Preliminary Blood No Growth after 72 hours 05/05/20 22:34 Blood Culture - Preliminary Blood No Growth after 72 hours Assessment and Plan Assessment: 1. Sepsis secondary to Complicated SSTI of sacrum 2. Supratherapeutic INR 3. HTN 4. HLD 5. Hx DVT/PE Patient is a 44-year-old male with a PMH of paraplegia, chronic large nonhealing coccygeal ulcer (multiple surgeries including muscle flap and subsequent wound dehiscence), colostomy, urostomy, bovine tricuspid valve replacement, history of DVT and PE on Coumadin, and hypertension, and multiple recent admissions with recent MRSA culture positive from the wound and subsequent discharge to home with daptomycin who now presented to the emergency room with complaints of ongoing fevers and lower back pain surrounding the ulcer. The patient notes that he had been getting home care nurse at home had been changing his dressings but he has questioned whether the daptomycin is working since he continued to calero ve fevers.. Sepsis suspected secondary to nonhealing large coccygeal ulcer vs endocarditis -Continue with home daptomycin -C/w Zosyn -Pain control -ID and wound care consults -Follow up blood cultures - no growth -IV fluids Supratherapeutic INR -Hold Coumadin -Monitor for now -Coumadin dosing per pharmacy Chronic conditions: HTN, HLD, DVT/PE -C/w home meds DVT prophylaxis -Coumadin AM labs
[2020-05-09 14:39] VITALS: BMI 52.9
[2020-05-09] MEDS: DAPTOmycin 500 MG in SODIUM CHLORIDE 0.9% 50 ML IVPB SCH (15:20)
[2020-05-09] MEDS ORDERED: WARFARIN 1 MG TAB PO ONE (18:00)
[2020-05-09] MEDS: LACTATED RINGERS 1,000 ML IV SCH ×2 (18:59→23:55)
--- NOTE | 2020-05-09 22:35 | PN ---
PROGRESS NOTE DATE OF SERVICE: 05/09/2020 REASON FOR FOLLOWUP: Sacral osteomyelitis. INTERVAL HISTORY: The patient is currently afebrile. The patient is breathing comfortably, currently on room air. Denies having any chest pain or shortness of breath. Occasional cough. No abdominal pain or diarrhea. PHYSICAL EXAMINATION: Blood pressure 134/76 with a pulse of 107, temperature 98.3. He is 97% on room air. General description is a middle-aged male lying in bed in no distress. RESPIRATORY SYSTEM: Unlabored breathing with decreased intensity of breath sounds. No wheeze. HEART: S1, S2. Regular rate and rhythm. ABDOMEN: Soft. No tenderness. LABS/IMAGING: INR is 3.1. DIAGNOSTIC IMPRESSION AND PLAN: The patient did have a CT of the sacrum which showed soft tissue air with apparent destructive changes of S5 vertebra CT chest was negative for any pneumonia. We will obtain a CT-guided aspirate of this area for more definite abdominal microbiological diagnosis. Continue Zosyn and daptomycin and monitor his clinical course closely. MMODL / IJN: [id number] /
[2020-05-10] MEDS: HYDROmorphone 0.5 MG/0.5 ML SYRINGE IVP PRN ×2 (05:37→09:17)
[2020-05-10 06:06] LABS: Anisocytosis Moderate; HCT 26.2 % (39.0-53.0); HGB 8.1 gm/dL (13.0-17.5); Hypochromasia Marked; MCH 22.6 pg (25.0-35.0); MCHC 31.1 g/dL (31.0-37.0); MCV 72.6 fL (80.0-100.0); Mean Platelet Volume 6.7; Microcytosis Marked; Platelet Count 338 k/uL (150-450); Poikilocytosis Slight; RBC 3.61 m/uL (4.30-5.90); RDW 20.7 % (11.5-15.5); WBC 8.6 k/uL (3.8-10.6)
[2020-05-10] MEDS: SODIUM CHLORIDE 0.9% 1,000 ML IV SCH (06:10)
[2020-05-10 06:15] LABS: INR 2.3 (<1.2); Prothrombin Time 22.3 sec (9.0-12.0)
[2020-05-10 07:27] LABS: African American GFR (CKD) >90 (>60 ml/min/1.73 sqM); Anion Gap 4 mmol/L; Blood Urea Nitrogen 8 mg/dL (9-20); Carbon Dioxide 22 mmol/L (22-30); Chloride 108 mmol/L (98-107); Glucose 93 mg/dL (74-99); Non-African American GFR(CKD) >90 (>60 ml/min/1.73 sqM); Potassium 4.1 mmol/L (3.5-5.1); Sodium 134 mmol/L (137-145)
[2020-05-10 09:06] VITALS: RESP 20
[2020-05-10] MEDS: FERROUS SULFATE 325 MG TAB PO SCH (09:18)
[2020-05-10] MEDS: SPIRONOLACTONE 25 MG TAB PO SCH (09:18)
[2020-05-10] MEDS: MAGNESIUM OXIDE 400 MG TAB PO SCH (09:18)
[2020-05-10] MEDS: POTASSIUM CHLORIDE ER 20 MEQ TAB.ER PO SCH (09:18)
[2020-05-10] MEDS: PIPERACILLIN-TAZOBACTAM 3.375 GM in SODIUM CHLORIDE 0.9% 100 ML IVPB SCH (09:18)
[2020-05-10] MEDS: diphenhydrAMINE 50 MG/ML 1 ML VIAL IVP PRN ×2 (09:18→15:13)
[2020-05-10] MEDS: FLUCONAZOLE 100 MG TAB PO SCH (09:19)
--- NOTE | 2020-05-10 11:23 | P.PN ---
Subjective Progress Note Date: 05/10/20 Principal diagnosis: non-healing sacral ulcer Patient states that he has night sweats. However he has been afebrile. Patient states that he has ALLERGIC reactions to the antibiotics where it causes him to itch. He is requesting IV Benadryl before and after his antibiotics. Patient denies any hives. He appears stable. He has been on the antibiotics for 4 days. He states he is short of breath whenever he gets the antibiotics. Patient however setting on well room air and there is no tongue swelling or neck swelling . Objective - Vital Signs Vital signs: Vital Signs Temp 97.6 F 05/10/20 08:00 Pulse 115 H 05/10/20 08:00 Resp 20 05/10/20 08:00 BP 114/61 05/10/20 08:00 Pulse Ox 99 05/10/20 08:00 Intake & Output 05/09/20 05/10/20 05/10/20 18:59 06:59 18:59 Intake Total 1060 Output Total 825 700 800 Balance 235 -700 -800 Weight 139.75 kg Intake: IV 100 Piperacillin-Tazobactam 3 100 .375 gm In Sodium Chloride 0.9% 100 ml @ 25 mls/hr IVPB Q8HR [facility] Rx# :[id number] Oral 960 Output: Urine 825 700 800 Other: Voiding Method Ileal Conduit (Left) Ileal Conduit (Left) - Exam General examination - Alert and Oriented 3 in NAD Heart - + S1S2 no murmurs Lungs - Clear to auscultation Abdomen soft NT ND +ve BS Extremities - No edema, surgical bandages are intact and 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 Psych - Calm and cooperative - Labs CBC & Chem 7: 05/10/20 05:26 05/10/20 05:26 Labs: Abnormal Lab Results - Last 24 Hours (Table) 05/10/20 05/10/20 05/10/20 Range/Units 05:26 05:26 05:26 RBC 3.61 L (4.30-5.90) m/uL Hgb 8.1 L (13.0-17.5) gm/dL Hct 26.2 L (39.0-53.0) % MCV 72.6 L (80.0-100.0) fL MCH 22.6 L (25.0-35.0) pg RDW 20.7 H (11.5-15.5) % PT 22.3 H (9.0-12.0) sec INR 2.3 H (<1.2) Sodium 134 L (137-145) mmol/L Chloride 108 H (98-107) mmol/L BUN 8 L (9-20) mg/dL Creatinine 0.38 L (0.66-1.25) mg/dL Calcium 8.0 L (8.4-10.2) mg/dL Microbiology - Last 24 Hours (Table) 05/06/20 23:36 Blood Culture - Preliminary Blood No Growth after 72 hours 05/05/20 22:51 Blood Culture - Preliminary Blood No Growth after 96 hours 05/05/20 22:34 Blood Culture - Preliminary Blood No Growth after 96 hours Assessment and Plan Assessment: 1. Sepsis secondary to Complicated SSTI of sacrum 2. Supratherapeutic INR 3. HTN 4. HLD 5. Hx DVT/PE Patient is a 44-year-old male with a PMH of paraplegia, chronic large nonhealing coccygeal ulcer (multiple surgeries including muscle flap and subsequent wound dehiscence), colostomy, urostomy, bovine tricuspid valve replacement, history of DVT and PE on Coumadin, and hypertension, and multiple recent admissions with re cent MRSA culture positive from the wound and subsequent discharge to home with daptomycin who now presented to the emergency room with complaints of ongoing fevers and lower back pain surrounding the ulcer. The patient notes that he had been getting home care nurse at home had been changing his dressings but he has questioned whether the daptomycin is working since he continued to have fevers.. Sepsis suspected secondary to nonhealing large coccygeal ulcer vs endocarditis -Continue with home daptomycin -C/w Zosyn -Pain control -ID and wound care consults -Follow up blood cultures - no growth -Computed tomography scan shows findings consistent with chronic osteomyelitis. Per INR there is no fluid to drain -IV fluids -Patient now afebrile and leukocytosis has resolved Supratherapeutic INR -INR now therapeutic -Monitor for now -Coumadin dosing per pharmacy Chronic conditions: HTN, HLD, DVT/PE -C/w home meds DVT prophylaxis -Coumadin
[2020-05-10 11:49] VITALS: BP 133/62; PULSE 114; TEMP 98
--- NOTE | 2020-05-10 13:13 | P.DS ---
Providers Date of admission: 05/07/20 11:41 Expected date of discharge: 05/10/20 Attending physician: Ben Sanches MD Consults: 05/06/20 00:31 Consult Physician Routine Consulting Provider: Ana Zacarias Consult Reason/Comments: fevers, decubitus ulcer, multiple antibiotics allergies Do you want consulting provider notified?: Yes Primary care physician: Filipe Castaneda Hospital Course: Discharge Diagnosis: 1. Sepsis secondary to Complicated SSTI of sacrum 2. Supratherapeutic INR 3. HTN 4. HLD 5. Hx DVT/PE Hospital Course: Patient is a 44-year-old male with a PMH of paraplegia, chronic large nonhealing coccygeal ulcer (multiple surgeries including muscle flap and subsequent wound dehiscence), colostomy, urostomy, bovine tricuspid valve replacement, history of DVT and PE on Coumadin, and hypertension, and multiple recent admissions with recent MRSA culture positive from the wound and subsequent discharge to home with daptomycin who now presented to the emergency room with complaints of ongoing fevers and lower back pain surrounding the ulcer. The patient notes that he had been getting home care nurse at home had been changing his dressings but he has questioned whether the daptomycin is working since he continued to have fevers.. #Sepsis suspected secondary to nonhealing large coccygeal ulcer vs endocarditis -Patient will be discharged on daptomycin and Invanz for 4 more weeks as per ID recommendations -Follow up blood cultures - no growth -Computed tomography scan shows findings consistent with chronic osteomyelitis. Per IR there is no fluid to drain -Patient now afebrile and leukocytosis has resolved -Patient will be discharged with home care for his wound care - arranged for home abx infusion #Supratherapeutic INR -INR now therapeutic -We'll discharge patient on Coumadin 3 mg QHS Chronic conditions: HTN, HLD, DVT/PE -C/w home meds Patient is afebrile and leukocytosis has resolved. He is stable for discharge with home care and home infusion. 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 Patient Condition at Discharge: Stable Plan - Discharge Summary New Discharge Prescriptions: New Warfarin [Coumadin] 3 mg PO HS #14 tab Ertapenem [INVanz] 1 gm IVPB DAILY vial Continue Metoprolol Tartrate [Lopressor] 50 mg PO BID HYDROcodone/APAP 7.5-325MG [[place] 7.5-325] 1 tab PO TID PRN PRN Reason: Pain Docusate [Colace] 100 mg PO BID Spironolactone [Aldactone] 50 mg PO DAILY Furosemide [Lasix] 80 mg PO DAILY Ferrous Sulfate [Iron (65 MG Elemental)] 325 mg PO DAILY Potassium Chloride ER [K-Dur 20] 20 meq PO DAILY Magnesium Oxide 400 mg PO DAILY ALPRAZolam [Xanax] 0.25 mg PO BID PRN PRN Reason: Anxiety DAPTOmycin [Cubicin] 500 mg IVPB DAILY #42 bag Discontinued Warfarin Sodium [Coumadin] 6 mg PO HS Discharge Medication List Metoprolol Tartrate [Lopressor] 50 mg PO BID 07/31/14 [History] ALPRAZolam [Xanax] 0.25 mg PO BID PRN 04/23/20 [History] Docusate [Colace] 100 mg PO BID 04/23/20 [History] Ferrous Sulfate [Iron (65 MG Elemental)] 325 mg PO DAILY 04/23/20 [History] Furosemide [Lasix] 80 mg PO DAILY 04/23/20 [History] HYDROcodone/APAP 7.5-325MG [[place] 7.5-325] 1 tab PO TID PRN 04/23/20 [History] Magnesium Oxide 400 mg PO DAILY 04/23/20 [History] Potassium Chloride ER [K-Dur 20] 20 meq PO DAILY 04/23/20 [History] Spironolactone [Aldactone] 50 mg PO DAILY 04/23/20 [History] DAPTOmycin [Cubicin] 500 mg IVPB DAILY #42 bag 04/27/20 [Rx] Ertapenem [INVanz] 1 gm IVPB DAILY vial 05/10/20 [Rx] Warfarin [Coumadin] 3 mg PO HS #14 tab 05/10/20 [Rx] Follow up Appointment(s)/Referral(s): [facility], [REFERRING] - Filipe Castaneda MD [Primary Care Provider] - 1-2 days [facility] Visiting Nurse, [NON-STAFF] - Activity/Diet/Wound Care/Special Instructions: *Patient will be going home on IV Invanz 1 gram daily for 4 weeks and IV Daptomycin 500 mg daily for 4 weeks Discharge Disposition: HOME SELF-CARE
[2020-05-10] MEDS ORDERED: ERTAPENEM 1 GM in SODIUM CHLORIDE 0.9% 50 ML IVPB SCH (13:15)
[2020-05-10] MEDS: DAPTOmycin 500 MG in SODIUM CHLORIDE 0.9% 50 ML IVPB SCH (14:21)
[2020-05-10] MEDS ORDERED: WARFARIN 5 MG TAB PO ONE (18:00)
== END 2020-05-10 16:38 | disposition home health service (06) | DRG 871 ==
LOC: EC 21:56 → 3SCARD 05-06 00:48 → OBSVTOIN 05-07 11:41
PROVIDERS: ADMIT Internal Medicine; ATTEND Internal Medicine
DX: A41.9 Sepsis, unspecified organism (principal); L89.154 Pressure ulcer of sacral region, stage 4; G82.20 Paraplegia, unspecified; M46.28 Osteomyelitis of vertebra, sacral and sacrococcygeal region; Z43.3 Encounter for attention to colostomy; Z93.6 Other artificial openings of urinary tract status; L08.89 Other specified local infections of the skin and subcutaneous tissue; Z20.828 Contact with and (suspected) exposure to other viral communicable diseases; I10 Essential (primary) hypertension; E78.5 Hyperlipidemia, unspecified; I45.10 Unspecified right bundle-branch block; R79.1 Abnormal coagulation profile; M54.5 Low back pain; T36.8X6A Underdosing of other systemic antibiotics, initial encounter; Z91.128 Patient's intentional underdosing of medication regimen for other reason; Z86.711 Personal history of pulmonary embolism; Z79.01 Long term (current) use of anticoagulants; Z79.899 Other long term (current) drug therapy; Z87.891 Personal history of nicotine dependence; Z86.14 Personal history of Methicillin resistant Staphylococcus aureus infection; Z86.718 Personal history of other venous thrombosis and embolism; Z95.2 Presence of prosthetic heart valve; Z87.2 Personal history of diseases of the skin and subcutaneous tissue; Z98.890 Other specified postprocedural states; Z88.1 Allergy status to other antibiotic agents; Z88.2 Allergy status to sulfonamides; Z82.49 Family history of ischemic heart disease and other diseases of the circulatory system
CPT/HCPCS: 36415; 71046; 71250; 72192; 80048; 80053; 81001; 83605; 84145; 84484; 85025; 85027; 85610; 85652; 85730; 86140; 87040; 87635; 93005; 96361; 96365; 96375; 99285

== ENCOUNTER → 2020-06-08 | Outpatient (CLI) | payer OTHER ==
[~2020-06-08] MED LIST: ALTEPLASE 2 MG VIAL (CATHFLO) IV ONE; AZTREONAM 2 GM in SODIUM CHLORIDE 0.9% 100 ML IVPB NR; SODIUM CHLORIDE 0.9% 500 ML 500 ML in EMPTY BAG 1 BAG IV PRN
[2020-06-08 11:29] VITALS: BP 117/79; PULSE 85; RESP 16
== END | disposition home or self-care (01) ==
LOC: PROCWHC3 10:34
PROVIDERS: ATTEND Internal Medicine
DX: M86.659 Other chronic osteomyelitis, unspecified thigh (principal); Z88.1 Allergy status to other antibiotic agents; Z88.2 Allergy status to sulfonamides; Z88.8 Allergy status to other drugs, medicaments and biological substances
CPT/HCPCS: 96365; 96375; 36593; J1642; J2997

== ENCOUNTER 2020-08-15 20:30 | Emergency (ER) | payer OTHER ==
[2020-08-15 22:11] VITALS: TEMP 98.6
[2020-08-16] MEDS ORDERED: MORPHINE SULFATE 2 MG/ML SYRINGE IVP ONE (00:09)
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
[2020-08-16 00:54] LABS: Anisocytosis Slight; Basophils % (A) 0 %; Eosinophils # (A) 0.1 k/uL (0-0.7); Eosinophils % (A) 1 %; HCT 33.8 % (39.0-53.0); HGB 10.9 gm/dL (13.0-17.5); Hypochromasia Moderate; Lymphocytes # (A) 1.1 k/uL (1.0-4.8); Lymphocytes % (A) 14 %; MCH 24.9 pg (25.0-35.0); MCHC 32.1 g/dL (31.0-37.0); MCV 77.7 fL (80.0-100.0); Mean Platelet Volume 7.3; Microcytosis Slight; Monocytes # (A) 0.4 k/uL (0-1.0); Monocytes % (A) 5 %; Neutrophils # (A) 6.2 k/uL (1.3-7.7); Neutrophils % (A) 79 %; Platelet Count 316 k/uL (150-450); RBC 4.35 m/uL (4.30-5.90); RDW 16.5 % (11.5-15.5); WBC 7.9 k/uL (3.8-10.6)
[2020-08-16 01:02] LABS: INR 1.7 (<1.2); Partial Thromboplastin Time 30.3 sec (22.0-30.0); Prothrombin Time 16.6 sec (9.0-12.0)
--- NOTE | 2020-08-16 01:06 | XR ---
EXAM: XR Chest, 2 Views CLINICAL HISTORY: ITS.REASON XR Reason: dysrhythmia TECHNIQUE: Frontal and lateral views of the chest. COMPARISON: 05/08/2020 FINDINGS: Lungs: Unremarkable. No consolidation. Pleural space: Unremarkable. No pneumothorax. Heart: Borderline cardiomegaly. Valvular prosthesis in place. Mediastinum: Median sternotomy wires in place. Valvular prosthesis in place. Bones/joints: Unremarkable. Posterior approach spinal fusion hardware is seen throughout the thoracolumbar spine. Lines: Right-sided chest wall with catheter tip terminating in the cavoatrial junction. IMPRESSION: No acute pulmonary process.
[2020-08-16 01:33] LABS: ALT 23 U/L (4-49); AST 31 U/L (17-59); African American GFR (CKD) >90 (>60 ml/min/1.73 sqM); Albumin 3.4 g/dL (3.5-5.0); Alkaline Phosphatase 1242 U/L (38-126); Anion Gap 9 mmol/L; Blood Urea Nitrogen 23 mg/dL (9-20); Calcium 9.2 mg/dL (8.4-10.2); Carbon Dioxide 22 mmol/L (22-30); Chloride 106 mmol/L (98-107); Glucose 130 mg/dL (74-99); Magnesium 1.8 mg/dL (1.6-2.3); Non-African American GFR(CKD) >90 (>60 ml/min/1.73 sqM); Potassium 4.2 mmol/L (3.5-5.1); Sodium 137 mmol/L (137-145); Total Bilirubin 0.5 mg/dL (0.2-1.3); Total Protein 7.2 g/dL (6.3-8.2)
[2020-08-16 02:34] VITALS: BP 111/75; PULSE 97; RESP 17
== END 2020-08-16 02:49 | disposition home or self-care (01) ==
LOC: EC 20:30
DX: R06.02 Shortness of breath (principal); R00.2 Palpitations; R07.9 Chest pain, unspecified; I10 Essential (primary) hypertension; Z20.822 Contact with and (suspected) exposure to COVID-19; Z87.891 Personal history of nicotine dependence
CPT/HCPCS: 99285; 96374; 36415; 93005; 80053; 83735; 84484; 85025; 85610; 85730; 87635; 71046; J2270

== ENCOUNTER 2020-10-23 19:47 | Inpatient (IN) | payer OTHER ==
[2020-10-23] MEDS ORDERED: PIPERACILLIN-TAZOBACTAM 3.375 GM in SODIUM CHLORIDE 0.9% 100 ML IVPB STA (20:27)
[2020-10-23] MEDS ORDERED: SODIUM CHLORIDE 0.9% 500 ML 500 ML IV ONE (20:28)
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
[2020-10-23] MEDS: SODIUM CHLORIDE 0.9% 500 ML 500 ML IV SCH ×2 (21:09→21:11)
[2020-10-23 21:12] LABS: Anisocytosis Slight; Basophils % (A) 0 %; Eosinophils # (A) 0.2 k/uL (0-0.7); Eosinophils % (A) 1 %; HCT 39.1 % (39.0-53.0); HGB 12.1 gm/dL (13.0-17.5); Lymphocytes # (A) 0.8 k/uL (1.0-4.8); Lymphocytes % (A) 6 %; MCH 24.1 pg (25.0-35.0); MCHC 30.9 g/dL (31.0-37.0); MCV 77.9 fL (80.0-100.0); Mean Platelet Volume 6.9; Microcytosis Slight; Monocytes # (A) 0.5 k/uL (0-1.0); Monocytes % (A) 3 %; Neutrophils # (A) 11.6 k/uL (1.3-7.7); Neutrophils % (A) 88 %; Platelet Count 313 k/uL (150-450); RBC 5.02 m/uL (4.30-5.90); RDW 19.1 % (11.5-15.5); WBC 13.1 k/uL (3.8-10.6)
[2020-10-23 21:17] LABS: Appearance,Urine Cloudy (Clear); Bilirubin,Urine Negative (Negative); Blood,Urine Moderate (Negative); Budding Yeast,Urine Many /hpf; Color,Urine Yellow; Glucose,Urine (UA) Negative (Negative); Ketones,Urine Negative (Negative); Leukocyte Esterase,Urine Small (Negative); Mucus,Urine Occasional /hpf; Nitrite,Urine Negative (Negative); Protein,Urine 2+ (Negative); RBC,Urine 19 /hpf (0-5); Specific Gravity,Urine 1.014 (1.001-1.035); Squamous Epithelial Cell,Urine <1 /hpf (0-4); Urobilinogen,Urine <2.0 mg/dL (<2.0); WBC,Urine 11 /hpf (0-5)
[2020-10-23 21:19] LABS: INR 2.1 (<1.2); Partial Thromboplastin Time 35.5 sec (22.0-30.0)
[2020-10-23 21:27] LABS: ALT 26 U/L (4-49); AST 38 U/L (17-59); African American GFR (CKD) >90 (>60 ml/min/1.73 sqM); Alkaline Phosphatase 919 U/L (38-126); Anion Gap 9 mmol/L; Blood Urea Nitrogen 20 mg/dL (9-20); Carbon Dioxide 22 mmol/L (22-30); Chloride 103 mmol/L (98-107); Glucose 133 mg/dL (74-99); Non-African American GFR(CKD) >90 (>60 ml/min/1.73 sqM); Potassium 4.3 mmol/L (3.5-5.1); Sodium 134 mmol/L (137-145); Total Bilirubin 0.3 mg/dL (0.2-1.3); Total Protein 6.5 g/dL (6.3-8.2)
[2020-10-23] MEDS ORDERED: HYDROmorphone 1 MG/ML 1 ML SYRINGE IVP STA (21:59)
[2020-10-23] MEDS ORDERED: ONDANSETRON 4 MG/2 ML VIAL IVP STA (21:59)
[2020-10-23] MEDS ORDERED: NALOXONE 0.4 MG/ML 1 ML VIAL IV PRN (22:13)
[2020-10-23] MEDS ORDERED: ONDANSETRON 4 MG/2 ML VIAL IVP PRN (22:13)
[2020-10-23] MEDS ORDERED: DAPTOmycin 500 MG in SODIUM CHLORIDE 0.9% 50 ML IVPB ONE (23:00)
[2020-10-24] MEDS ORDERED: DOXYCYCLINE 100 MG in SODIUM CHLORIDE 0.9% 100 ML IVPB ONE (00:30)
[2020-10-24] MEDS: HYDROmorphone 1 MG/ML 1 ML SYRINGE IVP PRN ×6 (01:27→23:14)
[2020-10-24] MEDS: SODIUM CHLORIDE 0.9% 1,000 ML IV SCH ×2 (01:27→08:25)
[2020-10-24] MEDS: PIPERACILLIN-TAZOBACTAM 3.375 GM in SODIUM CHLORIDE 0.9% 100 ML IVPB SCH ×3 (03:33→18:26)
[2020-10-24 09:20] LABS: Anisocytosis Slight; Basophils % (A) 0 %; Eosinophils # (A) 0.1 k/uL (0-0.7); Eosinophils % (A) 1 %; HCT 35.6 % (39.0-53.0); HGB 10.9 gm/dL (13.0-17.5); Hypochromasia Slight; Lymphocytes # (A) 0.4 k/uL (1.0-4.8); Lymphocytes % (A) 5 %; MCH 24.5 pg (25.0-35.0); MCHC 30.7 g/dL (31.0-37.0); MCV 79.7 fL (80.0-100.0); Microcytosis Slight; Monocytes # (A) 0.2 k/uL (0-1.0); Monocytes % (A) 3 %; Neutrophils # (A) 7.3 k/uL (1.3-7.7); Neutrophils % (A) 91 %; Platelet Count 260 k/uL (150-450); RBC 4.47 m/uL (4.30-5.90); RDW 19.2 % (11.5-15.5)
[2020-10-24 09:25] LABS: Prothrombin Time 19.8 sec (9.0-12.0)
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
[2020-10-24] MEDS: FERROUS SULFATE 325 MG TAB PO SCH ×2 (13:30→20:18)
[2020-10-24] MEDS: MAGNESIUM OXIDE 400 MG TAB PO SCH (13:30)
[2020-10-24] MEDS: LACTATED RINGERS 1,000 ML IV SCH ×2 (13:32→23:18)
[2020-10-24] MEDS ORDERED: SILVER sulfADIAZINE Cream 400 GM 1 APPLIC APPLIC TOPICAL STA (13:39)
[2020-10-24] MEDS ORDERED: diphenhydrAMINE 50 MG CAP PO PRN (16:32)
[2020-10-24] MEDS: SODIUM CHLORIDE 0.9% IVPB SCH (17:31)
[2020-10-24] MEDS: diphenhydrAMINE 25 MG CAP PO PRN (17:31)
[2020-10-24] MEDS: DAPTOMYCIN IVPB SCH (17:31)
[2020-10-24] MEDS ORDERED: WARFARIN 2 MG TAB PO ONE (18:00)
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
[2020-10-24] MEDS: ZOLPIDEM 5 MG TAB PO SCH (22:03)
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
[2020-10-25] MEDS: PIPERACILLIN-TAZOBACTAM 3.375 GM in SODIUM CHLORIDE 0.9% 100 ML IVPB SCH ×3 (03:04→17:22)
[2020-10-25] MEDS: HYDROmorphone 1 MG/ML 1 ML SYRINGE IVP PRN ×6 (03:08→22:55)
[2020-10-25] MEDS: diphenhydrAMINE 25 MG CAP PO PRN (03:22)
[2020-10-25] MEDS: MAGNESIUM OXIDE 400 MG TAB PO SCH (08:27)
[2020-10-25] MEDS: FERROUS SULFATE 325 MG TAB PO SCH ×2 (08:27→19:57)
[2020-10-25] MEDS: LACTATED RINGERS 1,000 ML IV SCH ×2 (09:56→17:23)
[2020-10-25 10:28] LABS: INR 2.1 (<1.2); Prothrombin Time 20.2 sec (9.0-12.0)
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
[2020-10-25] MEDS: HYDROcodone/APAP 10-325MG 1 EACH TAB PO PRN ×2 (14:41→21:08)
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
[2020-10-25] MEDS: SODIUM CHLORIDE 0.9% IVPB SCH (16:49)
[2020-10-25] MEDS: DAPTOMYCIN IVPB SCH (16:49)
[2020-10-25] MEDS: SILVER sulfADIAZINE Cream 400 GM 1 APPLIC APPLIC TOPICAL SCH (17:24)
[2020-10-25] MEDS ORDERED: WARFARIN 3 MG TAB PO SCH (18:00)
--- NOTE | 2020-10-25 22:36 | PN ---
PROGRESS NOTE DATE OF SERVICE: 10/25/2020 REASON FOR FOLLOWUP: Infected sacral pressure ulcer. INTERVAL HISTORY: Patient is currently afebrile, has been complaining of pain to bilateral sacral pressure area. No chest pain, shortness of breath, cough. No abdominal pain or diarrhea. PHYSICAL EXAMINATION: Blood pressure is 117/59, pulse of 104, temperature 96.6. He is 100% on room air. General description: The patient is a middle-aged male lying in bed in no distress. Respiratory system: Unlabored breathing, clear to auscultation anteriorly. Heart S1, S2. Regular rate and rhythm. Abdomen soft, no tenderness. Extremities: No edema of the feet. LABS: Hemoglobin is 10.1, white count 8.0. Wound culture showing presumptive MRSA. DIAGNOSTIC IMPRESSION AND PLAN: Patient with infected sacral pressure ulcer, concern for underlying osteomyelitis. Culture positive for presumptive MRSA. Patient is covered with daptomycin because of his VANCOMYCIN ALLERGY to continue while monitoring clinical course closely. The patient would benefit from transfer back to [facility]. MMODL / IJN: [id number] /
[2020-10-25] MEDS: ZOLPIDEM 5 MG TAB PO SCH (22:55)
[2020-10-26] MEDS: ALPRAZolam 0.25 MG TAB PO PRN (01:12)
[2020-10-26] MEDS: PIPERACILLIN-TAZOBACTAM 3.375 GM in SODIUM CHLORIDE 0.9% 100 ML IVPB SCH ×3 (01:12→17:32)
[2020-10-26] MEDS: diphenhydrAMINE 25 MG CAP PO PRN ×2 (01:15→19:50)
[2020-10-26] MEDS: LACTATED RINGERS 1,000 ML IV SCH ×2 (06:16→17:33)
[2020-10-26] MEDS: HYDROmorphone 1 MG/ML 1 ML SYRINGE IVP PRN ×6 (06:25→23:39)
[2020-10-26] MEDS: HYDROcodone/APAP 10-325MG 1 EACH TAB PO PRN ×2 (06:31→17:31)
[2020-10-26] MEDS: MAGNESIUM OXIDE 400 MG TAB PO SCH (09:13)
[2020-10-26] MEDS: SILVER sulfADIAZINE Cream 400 GM 1 APPLIC APPLIC TOPICAL SCH (09:13)
[2020-10-26] MEDS: FERROUS SULFATE 325 MG TAB PO SCH ×2 (09:13→19:51)
--- NOTE | 2020-10-26 09:46 | US ---
EXAMINATION TYPE: US venous doppler duplex UE RT DATE OF EXAM: 10/26/2020 COMPARISON: NONE CLINICAL HISTORY: right arm swelling. Exam done portable. SIDE PERFORMED: Right Unable to assess radial and ulnar veins at wrist due to bandage and wrap on patient's arm and wrist Right Arm: Appears negative for DVT IMPRESSION: Grayscale, color doppler, spectral doppler imaging performed of the deep veins of the upper extremiti es. There is normal flow, compressibility and vascular waveforms.
[2020-10-26 10:43] VITALS: BMI 21.4
[2020-10-26 10:47] LABS: INR 2.7 (<1.2); Prothrombin Time 25.7 sec (9.0-12.0)
--- NOTE | 2020-10-26 11:27 | P.PN ---
Subjective Progress Note Date: 10/26/20 CHIEF COMPLAINT: Chronic sacral decubitus ulcer HISTORY OF PRESENT ILLNESS: Surgical service is following in regards to patient's chronic sacral decubitus ulcer. Patient is on IV antibiotics and followed by infectious disease. Also followed by wound care service. Wound culture growing presumptive MRSA. Patient is complaining of right arm swelling today. Venous Doppler ordered which was negative for DVT of the right arm. Afebrile. He has been having some mild tachycardia. WBC is 8.0 hemoglobin 10.9 Patient seen and examined with Dr. Kang PHYSICAL EXAM: VITAL SIGNS: Reviewed. GENERAL: Well-developed in no acute distress. HEENT: No sclera icterus. Extraocular movements grossly intact. Moist buccal mucosa. Head is atraumatic, normocephalic. ABDOMEN: Soft. Nondistended. Nontender. NEUROLOGIC: Alert and oriented. Cranial nerves II through XII grossly intact. skin: Large sacral decubitus wound with slough tissue. Purulent drainage that is foul-smelling. Tunneling present ASSESSMENT: 1. Large chronic sacral decubitus wound with tunneling and foul smelling drainage PLAN: -No surgical intervention planned -Recommend that patient should be transferred back to [facility] where he has had previous surgical intervention and wound care. Also, recommend that patient continues to follow up with wound care outpatient. -Continue antibiotics per ID -Continue local wound care Physician Mate First note has been reviewed by physician. Signing provider agrees with the documented findings, assessment, and plan of care. Objective - Vital Signs Vital signs: Vital Signs Temp 98.2 F 10/26/20 08:00 Pulse 102 H 10/26/20 08:00 Resp 18 10/26/20 01:27 BP 105/64 10/26/20 08:00 Pulse Ox 100 10/26/20 08:00 Intake & Output 10/25/20 10/26/20 10/26/20 18:59 06:59 18:59 Intake Total 1230 420 360 Output Total 1900 1900 Balance -670 -1480 360 Weight 55 kg Intake: Intake, IV Titration 500 220 Amount Lactated Ringers 1,000 ml 400 220 @ 100 mls/hr IV .Q10H [facility] Rx#:[id number] Piperacillin-Tazobactam 3 100 .375 gm In Sodium Chloride 0.9% 100 ml @ 25 mls/hr IVPB Q8H [facility] Rx#: [id number] Oral 730 200 360 Output: Urine 1900 1900 Other: Voiding Method Indwelling Catheter Indwelling Catheter Indwelling Catheter - Labs CBC & Chem 7: 10/24/20 07:53 10/23/20 20:57 Labs: Abnormal Lab Results - Last 24 Hours (Table) 10/26/20 Range/Units 10:05 PT 25.7 H (9.0-12.0) sec INR 2.7 H (<1.2) Microbiology - Last 24 Hours (Table) 10/23/20 20:57 Blood Culture - Preliminary Blood No Growth after 48 hours 10/23/20 20:57 Blood Culture - Preliminary Blood No Growth after 48 hours 10/23/20 22:54 Gram Stain - Preliminary Buttock Wound Culture - Preliminary Presumptive MRSA 10/23/20 20:57 Urine Culture - Final Urine,Voided Mavis sp,not albicans/galbr
[2020-10-26] MEDS: DAPTOMYCIN IVPB SCH (17:32)
[2020-10-26] MEDS: SODIUM CHLORIDE 0.9% IVPB SCH (17:32)
[2020-10-26] MEDS ORDERED: WARFARIN 2 MG TAB PO ONE (18:00)
--- NOTE | 2020-10-26 18:27 | PN ---
PROGRESS NOTE DATE OF SERVICE: 10/26/2020 REASON FOR FOLLOWUP: Infected sacral pressure ulcer. INTERVAL HISTORY: Patient is currently afebrile. Patient is breathing comfortably. Denies having any chest pain or cough. He has been complaining of pain to the left arm. No abdominal pain. No diarrhea. PHYSICAL EXAMINATION: Blood pressure 117/72 with a pulse of 90, temperature 98.2. He is 93% on room air. General description: The patient is a middle-aged male lying in bed in no distress. Respiratory system: Unlabored breathing, decreased breath sounds in the base, with no wheeze. Heart S1, S2. Regular rate and rhythm. Abdomen soft, no tenderness. LABS: Hemoglobin is 10.1, white count 8.0. Wound culture with MRSA. Urine showing Mavis albicans, not albicans glabrata. DIAGNOSTIC IMPRESSION AND PLAN: 1. Patient with sacral osteomyelitis should benefit from surgical debridement and deep cultures. For now, we will continue the patient on daptomycin. This will be discontinued is no gram-negative grown. 2. Patient with a positive urine culture with Mavis not albicans, more likely colonization. We will change his [place] catheter. Obtain urine culture from new [place] and add antifungal if they are still positive. MMODL / IJN: [id number] /
[2020-10-26] MEDS: ZOLPIDEM 5 MG TAB PO SCH (19:51)
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
[2020-10-27] MEDS: diphenhydrAMINE 25 MG CAP PO PRN (02:12)
[2020-10-27] MEDS: HYDROmorphone 1 MG/ML 1 ML SYRINGE IVP PRN ×6 (02:32→23:17)
[2020-10-27] MEDS: PIPERACILLIN-TAZOBACTAM 3.375 GM in SODIUM CHLORIDE 0.9% 100 ML IVPB SCH ×2 (02:32→08:54)
[2020-10-27] MEDS: LACTATED RINGERS 1,000 ML IV SCH ×2 (05:11→08:00)
[2020-10-27] MEDS: FERROUS SULFATE 325 MG TAB PO SCH ×2 (08:00→20:19)
[2020-10-27] MEDS: MAGNESIUM OXIDE 400 MG TAB PO SCH (08:00)
[2020-10-27] MEDS: SILVER sulfADIAZINE Cream 400 GM 1 APPLIC APPLIC TOPICAL SCH (08:01)
[2020-10-27 08:24] LABS: INR 2.5 (<1.2); Prothrombin Time 23.8 sec (9.0-12.0)
[2020-10-27] MEDS: HYDROcodone/APAP 10-325MG 1 EACH TAB PO PRN (09:13)
--- NOTE | 2020-10-27 09:57 | P.PN ---
Subjective Progress Note Date: 10/27/20 Principal diagnosis: Sacral wound Patient without new complaints. Says his right hand swelling persists. He had an ultrasound negative for DVT. Patient states he is going back to [facility]. Our service was following for sacral wound. Objective - Vital Signs Vital signs: Vital Signs Temp 98.6 F 10/27/20 08:00 Pulse 113 H 10/27/20 08:00 Resp 16 10/27/20 08:00 BP 125/74 10/27/20 08:00 Pulse Ox 100 10/27/20 08:00 Intake & Output 10/26/20 10/27/20 10/27/20 18:59 06:59 18:59 Intake Total 960 Output Total 1525 600 Balance 960 -1525 -600 Weight 55 kg 49.5 kg Intake: Oral 960 Output: Urine 1525 600 Other: Voiding Method Indwelling Catheter Indwelling Catheter - Exam Abdomen: Soft, nontender, nondistended Right upper extremity with edema Sacral wound dressing in place - Labs CBC & Chem 7: 10/24/20 07:53 10/23/20 20:57 Labs: Abnormal Lab Results - Last 24 Hours (Table) 10/26/20 10/27/20 Range/Units 10:05 07:16 PT 25.7 H 23.8 H (9.0-12.0) sec INR 2.7 H 2.5 H (<1.2) Microbiology - Last 24 Hours (Table) 10/23/20 20:57 Blood Culture - Preliminary Blood No Growth after 72 hours 10/23/20 20:57 Blood Culture - Preliminary Blood No Growth after 72 hours 10/23/20 22:54 Gram Stain - Preliminary Buttock Wound Culture - Preliminary Presumptive MRSA Assessment and Plan (1) Decubitus ulcer Narrative/Plan: Continue local wound care. Continue antibiotics. Await transfer back to [facility]. Current Visit: Yes Status: Acute Code(s): L89.90 - PRESSURE ULCER OF UNSPECIFIED SITE, UNSPECIFIED STAGE SNOMED Code(s): 640419478
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
[2020-10-27] MEDS: SODIUM CHLORIDE 0.9% IVPB SCH (17:14)
[2020-10-27] MEDS: DAPTOMYCIN IVPB SCH (17:14)
[2020-10-27] MEDS ORDERED: WARFARIN 5 MG TAB PO ONE (18:00)
[2020-10-27] MEDS: ZOLPIDEM 5 MG TAB PO SCH (23:18)
[2020-10-27] MEDS: ALPRAZolam 0.25 MG TAB PO PRN (23:18)
--- NOTE | 2020-10-27 23:43 | PN ---
PROGRESS NOTE DATE OF SERVICE: 10/27/2020 REASON FOR FOLLOWUP: Sacral osteomyelitis, MRSA. INTERVAL HISTORY: The patient is afebrile, has been breathing comfortably. The patient denies having any chest pain. No shortness of breath or cough. No abdominal pain. No sensation to the sacral wound area. Overall drainage has decreased. PHYSICAL EXAMINATION: Blood pressure 133/84, pulse of 115, temperature 98.9. He is 100% on room air. General description is a middle-aged male lying in bed in no distress. Respiratory system: Unlabored breathing, clear to auscultation. HEART: S1, S2. Regular rate and rhythm. Abdomen soft, no tenderness. LABS: Hemoglobin is 10, white count 8.0. DIAGNOSTIC IMPRESSION AND PLAN: Patient with sacral osteomyelitis, acute on chronic. Culture positive for MRSA. Patient is covered with daptomycin. Awaiting surgical debridement and complete 6 weeks of antibiotic on discharge. Continue supportive care. MMODL / IJN: [id number] /
[2020-10-28] MEDS: LACTATED RINGERS 1,000 ML IV SCH ×2 (00:03→00:09)
[2020-10-28] MEDS: HYDROmorphone 1 MG/ML 1 ML SYRINGE IVP PRN ×6 (05:01→23:31)
[2020-10-28 07:18] LABS: INR 2.4 (<1.2); Prothrombin Time 22.9 sec (9.0-12.0)
[2020-10-28] MEDS: FERROUS SULFATE 325 MG TAB PO SCH ×2 (07:37→20:18)
[2020-10-28] MEDS: SILVER sulfADIAZINE Cream 400 GM 1 APPLIC APPLIC TOPICAL SCH (07:37)
[2020-10-28] MEDS: MAGNESIUM OXIDE 400 MG TAB PO SCH (07:37)
[2020-10-28] MEDS: HYDROcodone/APAP 10-325MG 1 EACH TAB PO PRN (07:37)
[2020-10-28] MEDS ORDERED: ADENOSINE 3 MG/ML 2 ML VIAL IVP STA ×2 (11:34→11:35)
[2020-10-28] MEDS ORDERED: METOPROLOL SUCCINATE (ER) 25 MG TAB.ER.24H PO STA (11:47)
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
--- NOTE | 2020-10-28 12:26 | P.PN ---
Subjective Progress Note Date: 10/28/20 Principal diagnosis: Sacral wound Patient was transferred to cardiac floor because of SVT earlier today. He is back in sinus rhythm now. He is afebrile. INR 2.4. Objective - Vital Signs Vital signs: Vital Signs Temp 98.1 F 10/28/20 11:58 Pulse 125 H 10/28/20 11:58 Resp 20 10/28/20 11:58 BP 101/67 10/28/20 11:58 Pulse Ox 97 10/28/20 11:58 Intake & Output 10/27/20 10/28/20 10/28/20 18:59 06:59 18:59 Intake Total 240 Output Total 600 Balance -360 Intake: Oral 240 Output: Urine 600 Other: Voiding Method Indwelling Catheter Ileal Conduit (Left) - Exam Pelvic wounds evaluated with the patient's . Patient with large wound extending from the groin crease underneath a skin bridge to a tunneled area under his left buttock flap reconstruction, some superficial slough but no large amount of necrotic tissue. The flap itself per the was previously more ischemic appearing and now has a slightly ruborous appearance - Labs CBC & Chem 7: 10/24/20 07:53 10/23/20 20:57 Labs: Abnormal Lab Results - Last 24 Hours (Table) 10/28/20 Range/Units 06: PT 22.9 H (9.0-12.0) sec INR 2.4 H (<1.2) Microbiology - Last 24 Hours (Table) 10/23/20 20:57 Blood Culture - Preliminary Blood No Growth after 96 hours 10/23/20 20:57 Blood Culture - Preliminary Blood No Growth after 96 hours 10/23/20 22:54 Gram Stain - Final Buttock Wound Culture - Final Methicillin resist S. aureus Assessment and Plan (1) Decubitus ulcer Narrative/Plan: Patient with large pelvic wounds. At least at this point I do not see a surgical debridement being helpful. Patient does have such significant wounds with tunneling and previous flap reconstruction that reevaluation by tertiary care center plastic surgery department is warranted. They are losing ky in [facility] wound care team and are considering shifting care to [facility] or other tertiary care system. At this point spoke with nursing staff patient and . Will start Kerlix roll packing of tunneled areas with half-strength Dakin solution twice a day. After a few days of this hopefully can shift back to wet-to-dry saline on Kerlix rolls. Current Visit: Yes Status: Acute Code(s): L89.90 - PRESSURE ULCER OF UNSPECIFIED SITE, UNSPECIFIED STAGE SNOMED Code(s): 578945450
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
[2020-10-28] MEDS ORDERED: WARFARIN 5 MG TAB PO SCH (18:00)
--- NOTE | 2020-10-28 18:30 | PN ---
PROGRESS NOTE DATE OF SERVICE: 10/28/2020 REASON FOR FOLLOWUP: Sacral acute on chronic osteomyelitis, MRSA. INTERVAL HISTORY: The patient is afebrile. The patient is breathing comfortably. Patient denies having any chest pain, shortness of breath, abdominal pain, or any worsening drainage from sacral wound. PHYSICAL EXAMINATION: Blood pressure 137/72 with a pulse of 122, temperature 98.8. He is 100% on room air. General description is a middle-aged male lying in bed in no distress. Respiratory system: Unlabored breathing, clear to auscultation anteriorly. Heart S1, S2. Regular rate and rhythm. Abdomen soft, no tenderness. LAB DATA: INR is 2.4. Blood culture negative. DIAGNOSTIC IMPRESSION AND PLAN: Patient with infected sacral pressure ulcer with acute on chronic osteomyelitis, culture with MRSA. Patient is covered with daptomycin. Possible need for surgical debridement in the morning by Dr. Kang. If not, he will continue with IV daptomycin for 6 weeks and close outpatient followup [facility]. This was discussed with the at the bedside. Questions and concerns were answered. MMODL / IJN: [id number] /
[2020-10-28] MEDS: SODIUM CHLORIDE 0.9% IVPB SCH (18:50)
[2020-10-28] MEDS: SODIUM HYPOCHLORITE 0.25% 480 ML BOT MISCELLANE SCH ×2 (18:50→20:27)
[2020-10-28] MEDS: DAPTOMYCIN IVPB SCH (18:50)
[2020-10-28] MEDS: diphenhydrAMINE 25 MG CAP PO PRN ×2 (18:54→19:00)
[2020-10-28] MEDS: ZOLPIDEM 5 MG TAB PO SCH (20:18)
[2020-10-28] MEDS: ALPRAZolam 0.25 MG TAB PO PRN (22:34)
[2020-10-28 23:52] VITALS: RESP 16
[2020-10-29] MEDS: LACTATED RINGERS 1,000 ML IV SCH ×2 (05:17→14:54)
[2020-10-29 08:13] LABS: INR 2.2 (<1.2); Prothrombin Time 21.4 sec (9.0-12.0)
[2020-10-29] MEDS ORDERED: METOPROLOL SUCCINATE (ER) 25 MG TAB.ER.24H PO SCH (09:00)
[2020-10-29] MEDS ORDERED: METOPROLOL SUCCINATE (ER) 50 MG TAB.ER.24H PO SCH (09:00)
[2020-10-29] MEDS: FERROUS SULFATE 325 MG TAB PO SCH (09:32)
[2020-10-29] MEDS: HYDROmorphone 1 MG/ML 1 ML SYRINGE IVP PRN ×2 (09:32→13:59)
[2020-10-29] MEDS: MAGNESIUM OXIDE 400 MG TAB PO SCH (09:32)
[2020-10-29] MEDS: SILVER sulfADIAZINE Cream 400 GM 1 APPLIC APPLIC TOPICAL SCH (10:00)
[2020-10-29] MEDS: SODIUM HYPOCHLORITE 0.25% 480 ML BOT MISCELLANE SCH (10:01)
[2020-10-29 10:42] VITALS: TEMP 98.4
--- NOTE | 2020-10-29 11:48 | ECHOF ---
Referral Reason:SVT MEASUREMENTS -------- HEIGHT: 160.0 cm WEIGHT: 49.4 kg BP: RVIDd: 1.7 cm (< 3.3) IVSd: 0.7 cm (0.6 - 1.1) LVIDd: 4.9 cm (3.9 - 5.3) LVPWd: 0.9 cm (0.6 - 1.1) IVSs: 1.4 cm LVIDs: 2.2 cm LVPWs: 1.4 cm Ao Diam: 3.6 cm (2.0 - 3.7) AV Cusp: 1.7 cm (1.5 - 2.6) LA Diam: 2.7 cm (2.7 - 3.8) MV EXCURSION: 18.048 mm (> 18.000) MV EF SLOPE: 133 mm/s (70 - 150) EPSS: 1.6 cm MV E Bill: 0.72 m/s MV DecT: 161 ms MV A Bill: 0.86 m/s MV E/A Ratio: 0.84 AR PHT: 293 ms RAP: 5.00 mmHg RVSP: 13.69 mmHg FINDINGS -------- Sinus rhythm. This was a technically difficult study with suboptimal views. The left ventricular size is normal. Left ventricular wall thickness is normal. Overall left vent ricular systolic function is normal with, an EF between 55 - 60 %. The right ventricle is normal in size. The left atrial size is normal. The right atrial size is normal. The aortic valve is trileaflet and appears structurally normal. Trace amount of aortic regurgitatio n. The mitral valve leaflets are mildly thickened. Mild mitral regurgitation is present. The tricuspid valve appears structurally normal. Mild tricuspid regurgitation present. Right vent ricular systolic pressure is normal at < 35 mmHg. TV repair Trace/mild (physiologic) pulmonic regurgitation. The aortic root size is normal. IVC Not well visulized. There is no pericardial effusion. CONCLUSIONS -------- 1. This was a technically difficult study with suboptimal views. 2. Left ventricular wall thickness is normal. 3. Overall left ventricular systolic function is normal with, an EF between 55 - 60 %. 4. The left atrial size is normal. 5. Trace amount of aortic regurgitation. 6. The mitral valve leaflets are mildly thickened. 7. Mild mitral regurgitation is present. 8. Mild tricuspid regurgitation present. 9. TV repair 10. Trace/mild (physiologic) pulmonic regurgitation. 11. The aortic root size is normal. 12. There is no pericardial effusion. CAREER BASED INTERVENTION COORDINATOR: Yuliana Gilliam RDCS
--- NOTE | 2020-10-29 12:54 | P.PN ---
Subjective Progress Note Date: 10/29/20 CHIEF COMPLAINT: Chronic sacral decubitus ulcer HISTORY OF PRESENT ILLNESS: Surgical service is following in regards to patient's chronic sacral decubitus ulcer. Patient is on IV antibiotics and followed by infectious disease. Also followed by wound care service. Wound culture growing MRSA. Patient is lying in bed comfortably. He wants to be discharged home instead of being transferred to a tertiary care center. He will follow-up with wound care center. Afebrile. He has been having some mild tachycardia. Patient seen and examined with Dr. Kang PHYSICAL EXAM: VITAL SIGNS: Reviewed. GENERAL: Well-developed in no acute distress. HEENT: No sclera icterus. Extraocular movements grossly intact. Moist buccal mucosa. Head is atraumatic, normocephalic. ABDOMEN: Soft. Nondistended. Nontender. NEUROLOGIC: Alert and oriented. Cranial nerves II through XII grossly intact. skin: Large sacral decubitus wound with slough tissue. Purulent drainage. Tunneling present ASSESSMENT: 1. Large chronic sacral decubitus wound PLAN: -No surgical intervention planned -Patient can be discharged from surgical standpoint. Patient should continue to follow up with wound care center -Continue antibiotics per ID -Continue local wound care Physician Mathematics Education Professor note has been reviewed by physician. Signing provider agrees with the documented findings, assessment, and plan of care. Objective - Vital Signs Vital signs: Vital Signs Temp 98.4 F 10/29/20 12:00 Pulse 107 H 10/29/20 12:00 Resp 16 10/29/20 12:00 BP 118/78 10/29/20 12:00 Pulse Ox 100 10/29/20 12:00 Intake & Output 10/28/20 10/29/20 10/29/20 18:59 06:59 18:59 Intake Total 118 240 Output Total 300 900 Balance -182 -660 Intake: Oral 118 240 Output: Urine 300 900 Other: Voiding Method Ileal Conduit (Left) Ileal Conduit (Left) - Labs CBC & Chem 7: 10/24/20 07:53 10/23/20 20:57 Labs: Abnormal Lab Results - Last 24 Hours (Table) 10/29/20 Range/Units 07:23 PT 21.4 H (9.0-12.0) sec INR 2.2 H (<1.2) Microbiology - Last 24 Hours (Table) 10/23/20 20:57 Blood Culture - Preliminary Blood No Growth after 120 hours 10/23/20 20:57 Blood Culture - Preliminary Blood No Growth after 120 hours
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
[2020-10-29] MEDS: diphenhydrAMINE 25 MG CAP PO PRN ×2 (15:14→15:16)
[2020-10-29 15:20] VITALS: BP 124/77; PULSE 102
[2020-10-29] MEDS: SODIUM CHLORIDE 0.9% IVPB SCH (15:40)
[2020-10-29] MEDS: DAPTOMYCIN IVPB SCH (15:40)
[2020-10-29] MEDS ORDERED: WARFARIN 3 MG TAB PO SCH (18:00)
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
== END 2020-10-29 16:57 | disposition home or self-care (01) | DRG 871 ==
LOC: EC 19:47 → 3SCARD 22:09 → 4SSUR 10-27 06:58 → 3SCARD 10-28 08:49
PROVIDERS: ADMIT Hospitalist; ATTEND Hospitalist
DX: A41.02 Sepsis due to Methicillin resistant Staphylococcus aureus (principal); L89.154 Pressure ulcer of sacral region, stage 4; G82.20 Paraplegia, unspecified; M46.28 Osteomyelitis of vertebra, sacral and sacrococcygeal region; E87.2 Acidosis; I47.1 Supraventricular tachycardia; Z94.89 Other transplanted organ and tissue status; Z43.3 Encounter for attention to colostomy; Z89.612 Acquired absence of left leg above knee; Z43.6 Encounter for attention to other artificial openings of urinary tract; Z79.01 Long term (current) use of anticoagulants; Z79.899 Other long term (current) drug therapy; Z87.891 Personal history of nicotine dependence; Z94.5 Skin transplant status; Z95.2 Presence of prosthetic heart valve; Z86.711 Personal history of pulmonary embolism; Z88.1 Allergy status to other antibiotic agents; Z88.2 Allergy status to sulfonamides; Z82.49 Family history of ischemic heart disease and other diseases of the circulatory system; F41.9 Anxiety disorder, unspecified; F51.04 Psychophysiologic insomnia; I10 Essential (primary) hypertension; Z86.718 Personal history of other venous thrombosis and embolism; Z91.19 Patient's noncompliance with other medical treatment and regimen; Z86.14 Personal history of Methicillin resistant Staphylococcus aureus infection; M79.602 Pain in left arm
CPT/HCPCS: 36415; 80053; 81001; 83605; 85025; 85610; 85730; 87040; 87070; 87077; 87086; 87186; 87205; 93005; 93306; 96365; 96375; 99285

== ENCOUNTER 2020-12-20 19:50 | Inpatient (IN) | payer OTHER ==
[2020-12-20] MEDS ORDERED: ADENOSINE 3 MG/ML 2 ML VIAL IVP STA ×2 (20:10→20:24)
[2020-12-20] MEDS ORDERED: DILTIAZEM 5 MG/ML 5 ML VIAL IVP STA (20:28)
[2020-12-20 20:29] LABS: Anisocytosis Slight; Basophils % (A) 0 %; Eosinophils # (A) 0.2 k/uL (0-0.7); Eosinophils % (A) 1 %; HCT 33.3 % (39.0-53.0); HGB 11.2 gm/dL (13.0-17.5); Lymphocytes # (A) 0.9 k/uL (1.0-4.8); Lymphocytes % (A) 6 %; MCH 28.3 pg (25.0-35.0); MCHC 33.5 g/dL (31.0-37.0); MCV 84.6 fL (80.0-100.0); Mean Platelet Volume 7.3; Microcytosis Slight; Monocytes # (A) 0.4 k/uL (0-1.0); Monocytes % (A) 3 %; Neutrophils # (A) 12.8 k/uL (1.3-7.7); Neutrophils % (A) 89 %; Platelet Count 255 k/uL (150-450); RBC 3.94 m/uL (4.30-5.90); RDW 19.1 % (11.5-15.5); WBC 14.3 k/uL (3.8-10.6)
[2020-12-20 20:40] LABS: INR 4.2 (<1.2); Partial Thromboplastin Time 52.9 sec (22.0-30.0); Prothrombin Time 40.4 sec (9.0-12.0)
[2020-12-20] MEDS ORDERED: SODIUM CHLORIDE 0.9% 1,000 ML IV ONE (20:44)
[2020-12-20] MEDS ORDERED: DILTIAZEM 125 MG in SODIUM CHLORIDE 0.9% 100 ML IV SCH (20:45)
[2020-12-20 20:57] LABS: ALT 29 U/L (4-49); AST 42 U/L (17-59); African American GFR (CKD) >90 (>60 ml/min/1.73 sqM); Albumin 3.3 g/dL (3.5-5.0); Alkaline Phosphatase 810 U/L (38-126); Anion Gap 10 mmol/L; Blood Urea Nitrogen 25 mg/dL (9-20); Calcium 9.3 mg/dL (8.4-10.2); Carbon Dioxide 20 mmol/L (22-30); Chloride 102 mmol/L (98-107); Glucose 114 mg/dL (74-99); Magnesium 2.2 mg/dL (1.6-2.3); Non-African American GFR(CKD) >90 (>60 ml/min/1.73 sqM); Potassium 4.9 mmol/L (3.5-5.1); Sodium 132 mmol/L (137-145); Total Bilirubin 0.2 mg/dL (0.2-1.3); Total Protein 6.8 g/dL (6.3-8.2)
[2020-12-20] MEDS ORDERED: LINEZOLID 600 MG in DEXTROSE/WATER 1 300ML.BAG IVPB STA (21:00)
[2020-12-20] MEDS ORDERED: CLINDAMYCIN 600 MG in DEXTROSE 5% IN WATER 50 ML IVPB STA ×2 (21:01)
--- NOTE | 2020-12-20 21:24 | XR ---
EXAMINATION TYPE: XR chest 2V DATE OF EXAM: 12/20/2020 COMPARISON: Chest x-ray August 16, 2020 HISTORY: Tachycardia and shortness of breath. Dysrhythmia. TECHNIQUE: Frontal and lateral views of the chest are obtained. FINDINGS: There is stable right internal jugular Mediport catheter. There is no new suspicious focal air space opacity, pleural effusion, or pneumothorax seen. The cardiac silhouette size is stable and mildly enlarged with mild central vascular congestion felt present. Metallic stent graft and aortic root redemonstrated. Overlying sternal wires again seen. Long segment fusion hardware thoracolumbar spine partially imaged similar to prior. IMPRESSION: Correlate for CHF exacerbation as there is cardiomegaly with mild central vascular conge stion thought present.
[2020-12-20] MEDS ORDERED: MORPHINE SULFATE 4 MG/ML SYRINGE IVP STA (21:47)
[2020-12-20 21:58] LABS: Appearance,Urine Turbid (Clear); Bacteria,Urine Many /hpf; Bilirubin,Urine Negative (Negative); Blood,Urine Large (Negative); Color,Urine Yellow; Glucose,Urine (UA) Negative (Negative); Hyaline Casts,Urine 14 /lpf (0-2); Ketones,Urine Negative (Negative); Leukocyte Esterase,Urine Large (Negative); Mucus,Urine Few /hpf; Nitrite,Urine Positive (Negative); PH, Urine 5.5 (5.0-8.0); Protein,Urine 3+ (Negative); RBC,Urine >182 /hpf (0-5); Specific Gravity,Urine 1.019 (1.001-1.035); Squamous Epithelial Cell,Urine 1 /hpf (0-4); Urobilinogen,Urine <2.0 mg/dL (<2.0); WBC,Urine >182 /hpf (0-5)
--- NOTE | 2020-12-20 22:40 | CT ---
EXAMINATION TYPE: CT abdomen pelvis w con DATE OF EXAM: 12/20/2020 COMPARISON: 05/17/2013 HISTORY: stage 4 decub ulcer, abd pain CT DLP: 955.2 mGycm Automated exposure control for dose reduction was used. CONTRAST: Performed with IV Contrast, patient injected with 100 mL of Isovue 300. Images obtained from the diaphragm to the floor the pelvis with IV contrast. There is mild subsegmental atelectasis at the lung bases. Heart appears enlarged. There is cardiac vega rgery. There is apparent mitral valve surgery. There is no pleural effusion. Spleen is enlarged and measures 15 cm. Liver shows no focal defect. Gallbladder appears normal. The b ile ducts are not dilated. There is no pancreatic mass. The stomach is intact. There is no adrenal mass. Kidneys show satisfactory contrast opacification. There is no hydronephrosi s. There is inferior vena cava filter. There is no retroperitoneal adenopathy. Delayed images show no rmal renal excretion. Bladder distends smoothly. There is multilevel fusion surgery in the thoracic a nd lumbar spine. There is deformity of the proximal femurs with absence of the femoral heads and abse nce of most of the bony pelvis. There is skin ulcer defect in the posterior lower pelvis at the left and right ischium. There is thoracolumbar dextroscoliotic deformity. Exam limited by metal artifact. There are some small bowel fluid levels with small bowel measuring up to 2.5 cm. There is a colostomy on the left side of the mid abdomen. Intestinal pattern consistent with mild ileus. I do not see elvis dence for mechanical bowel obstruction. There is no sign of free air. There is apparent ileal conduit on the right side. IMPRESSION: Decubitus bilateral ulcer defects at the left and right ischium which is also present on the old exam and is progressed on the right side. There is evidence for some mild small bowel ileus. This appears new compared to old exam. No evidence of a mechanical bowel obstruction. No free air. There is splen omegaly which is new compared to old exam. Spleen is increased from 4.5 cm on old exam and now measur es 15 cm.
[2020-12-20] MEDS ORDERED: KETOROLAC 15 MG/ML 1 ML VIAL IVP PRN (23:13)
[2020-12-20] MEDS ORDERED: NALOXONE 0.4 MG/ML 1 ML VIAL IV PRN (23:13)
[2020-12-20] MEDS: SODIUM CHLORIDE 0.9% 1,000 ML IV SCH (23:34)
[2020-12-20] MEDS: MORPHINE SULFATE 4 MG/ML SYRINGE IV PRN (23:35)
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
[2020-12-21] MEDS ORDERED: SODIUM CHLORIDE 0.9% 1,000 ML IV STA (00:10)
[2020-12-21] MEDS: CLINDAMYCIN 600 MG in DEXTROSE 5% IN WATER 50 ML IVPB SCH ×4 (05:16→13:31)
[2020-12-21] MEDS: MORPHINE SULFATE 4 MG/ML SYRINGE IV PRN ×4 (05:28→19:53)
[2020-12-21] MEDS ORDERED: HYDROcodone/APAP 10-325MG 1 EACH TAB PO PRN (08:28)
[2020-12-21] MEDS: MAGNESIUM OXIDE 400 MG TAB PO SCH (09:55)
[2020-12-21] MEDS: FUROSEMIDE 80 MG TAB PO SCH (09:55)
[2020-12-21] MEDS: FLUCONAZOLE 100 MG TAB PO SCH (09:55)
[2020-12-21] MEDS: DOCUSATE 100 MG CAP PO SCH ×2 (09:55→21:05)
[2020-12-21] MEDS: ASCORBIC ACID 500 MG TAB PO SCH (09:55)
[2020-12-21] MEDS: MULTIVITAMINS, THERA 1 EACH TAB PO SCH (09:55)
[2020-12-21] MEDS: FERROUS SULFATE 325 MG TAB PO SCH ×2 (09:55→21:05)
[2020-12-21] MEDS: POTASSIUM CHLORIDE ER 20 MEQ TAB.ER PO SCH (09:56)
[2020-12-21] MEDS: METOPROLOL TARTRATE 25 MG TAB PO SCH ×2 (10:01→21:05)
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
[2020-12-21] MEDS: LINEZOLID 600 MG TAB PO SCH ×2 (13:30→21:05)
[2020-12-21] MEDS: SODIUM CHLORIDE 0.9% 1,000 ML IV SCH (13:32)
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
[2020-12-21] MEDS ORDERED: DAPTOMYCIN IVPB SCH (17:00)
[2020-12-21] MEDS ORDERED: SODIUM CHLORIDE 0.9% IVPB SCH (17:00)
[2020-12-21] MEDS: AZTREONAM 2 GM in SODIUM CHLORIDE 0.9% 100 ML IVPB SCH (18:02)
[2020-12-21] MEDS: DAPTOMYCIN IVPB SCH (18:21)
[2020-12-21] MEDS: SODIUM CHLORIDE 0.9% IVPB SCH (18:21)
[2020-12-21] MEDS ORDERED: WARFARIN 0.5 MG TAB PO ONE (21:00)
[2020-12-21] MEDS ORDERED: LINEZOLID 600 MG in DEXTROSE/WATER 1 300ML.BAG IVPB SCH (21:00)
[2020-12-21] MEDS ORDERED: WARFARIN 3 MG TAB PO SCH (21:00)
[2020-12-21] MEDS ORDERED: TEMAZEPAM 30 MG CAP PO SCH (21:00)
[2020-12-21] MEDS: TEMAZEPAM 15 MG CAP PO SCH (21:06)
[2020-12-21] MEDS ORDERED: ONDANSETRON 4 MG/2 ML VIAL IVP PRN (21:17)
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
[2020-12-22] MEDS: AZTREONAM 2 GM in SODIUM CHLORIDE 0.9% 100 ML IVPB SCH ×3 (00:29→16:49)
[2020-12-22] MEDS: MORPHINE SULFATE 4 MG/ML SYRINGE IV PRN ×6 (00:30→20:54)
[2020-12-22] MEDS: SODIUM CHLORIDE 0.9% 1,000 ML IV SCH ×2 (04:26→17:01)
[2020-12-22] MEDS ORDERED: DILTIAZEM DRIP BOLUS FROM BAG 1 MG SOLN IV ONE (07:30)
[2020-12-22] MEDS: FLUCONAZOLE 100 MG TAB PO SCH (09:08)
[2020-12-22] MEDS: ASCORBIC ACID 500 MG TAB PO SCH (09:08)
[2020-12-22] MEDS: FERROUS SULFATE 325 MG TAB PO SCH ×2 (09:08→20:55)
[2020-12-22] MEDS: MAGNESIUM OXIDE 400 MG TAB PO SCH (09:09)
[2020-12-22] MEDS: METOPROLOL TARTRATE 25 MG TAB PO SCH ×2 (09:09→20:54)
[2020-12-22] MEDS: FUROSEMIDE 80 MG TAB PO SCH (09:09)
[2020-12-22] MEDS: MULTIVITAMINS, THERA 1 EACH TAB PO SCH (09:09)
[2020-12-22] MEDS: DOCUSATE 100 MG CAP PO SCH ×2 (09:09→20:55)
[2020-12-22] MEDS: LINEZOLID 600 MG TAB PO SCH ×2 (09:09→21:06)
[2020-12-22] MEDS: POTASSIUM CHLORIDE ER 20 MEQ TAB.ER PO SCH (09:09)
[2020-12-22] MEDS: DILTIAZEM 125 MG in SODIUM CHLORIDE 0.9% 100 ML IV SCH (09:10)
[2020-12-22 10:09] LABS: INR 4.4 (<1.2); Prothrombin Time 42.7 sec (9.0-12.0)
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
--- NOTE | 2020-12-22 16:08 | PN ---
PROGRESS NOTE DATE OF SERVICE: 12/22/2020 REASON FOR FOLLOWUP: 1. UTI. 2. Infected sacral pressure ulcer. INTERVAL HISTORY: Patient is afebrile. The patient denies any further palpitation, wants to go home. No chest pain, shortness of breath or cough. No abdominal pain or diarrhea. PHYSICAL EXAMINATION: Blood pressure 97/53 with a pulse of 85, temperature 97.5. He is 97% on room air. General description is a middle-aged male lying in bed in no distress. Respiratory system: Unlabored breathing, decreased breath sounds at bases, no wheeze. Heart S1, S2. Regular rate and rhythm. Abdomen soft, no tenderness. LABS: INR is 4.4. Blood and urine so far pending. DIAGNOSTIC IMPRESSION AND PLAN: Patient admitted to the hospital with palpitation. The patient did have chronic nonhealing wound to the sacral area with recent CT scan shows worsening. The patient benefit from debridement, deep biopsy and cultures to guide further antibiotic therapy as antibiotic ( ). Also have a positive UA. The patient is on daptomycin and Azactam because of multiple antibiotic allergies. Continue to monitor clinical course closely. MMODL / IJN: [id number] /
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
[2020-12-22] MEDS: SODIUM CHLORIDE 0.9% IVPB SCH (16:50)
[2020-12-22] MEDS: DAPTOMYCIN IVPB SCH (16:50)
[2020-12-22] MEDS ORDERED: WARFARIN 0.5 MG TAB PO ONE (18:00)
[2020-12-22] MEDS: TEMAZEPAM 15 MG CAP PO SCH (20:54)
[2020-12-23] MEDS: AZTREONAM 2 GM in SODIUM CHLORIDE 0.9% 100 ML IVPB SCH ×3 (00:07→17:01)
[2020-12-23] MEDS: MORPHINE SULFATE 4 MG/ML SYRINGE IV PRN ×5 (00:07→21:08)
[2020-12-23] MEDS: SODIUM CHLORIDE 0.9% 1,000 ML IV SCH (06:10)
[2020-12-23] MEDS: DILTIAZEM 125 MG in SODIUM CHLORIDE 0.9% 100 ML IV SCH (06:50)
[2020-12-23] MEDS: METOPROLOL TARTRATE 25 MG TAB PO SCH (08:22)
[2020-12-23] MEDS: MAGNESIUM OXIDE 400 MG TAB PO SCH (08:22)
[2020-12-23] MEDS: LINEZOLID 600 MG TAB PO SCH ×2 (08:22→21:08)
[2020-12-23] MEDS: MULTIVITAMINS, THERA 1 EACH TAB PO SCH (08:22)
[2020-12-23] MEDS: FUROSEMIDE 80 MG TAB PO SCH (08:22)
[2020-12-23] MEDS: FLUCONAZOLE 100 MG TAB PO SCH (08:22)
[2020-12-23] MEDS: DOCUSATE 100 MG CAP PO SCH ×2 (08:22→21:08)
[2020-12-23] MEDS: ASCORBIC ACID 500 MG TAB PO SCH (08:23)
[2020-12-23] MEDS: FERROUS SULFATE 325 MG TAB PO SCH ×2 (08:23→21:08)
[2020-12-23] MEDS: POTASSIUM CHLORIDE ER 20 MEQ TAB.ER PO SCH (08:23)
[2020-12-23 09:02] LABS: INR 2.1 (<1.2); Prothrombin Time 20.2 sec (9.0-12.0)
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
[2020-12-23] MEDS ORDERED: METOPROLOL TARTRATE 25 MG TAB PO STA (14:27)
[2020-12-23] MEDS: DAPTOMYCIN IVPB SCH (17:01)
[2020-12-23] MEDS: SODIUM CHLORIDE 0.9% IVPB SCH (17:01)
[2020-12-23] MEDS ORDERED: WARFARIN 3 MG TAB PO ONE (18:00)
--- NOTE | 2020-12-23 18:03 | PN ---
PROGRESS NOTE DATE OF SERVICE: 12/23/2020. REASON FOR FOLLOW UP: 1. Sacral osteomyelitis. 2. UTI. INTERVAL HISTORY: Patient is afebrile. The patient is breathing comfortably. The patient denies having any chest pain. No shortness of breath or cough. No new symptoms. PHYSICAL EXAMINATION: Blood pressure 102/57, pulse of 94, temperature pulse ox 98%. General description is a middle-aged male lying in bed in no distress. Respiratory system: Unlabored breathing, clear to auscultation anteriorly. Heart S1, S2. Regular rate and rhythm. Abdomen: Soft, no tenderness. Sacral wound is currently dressed. No drainage on the dressing. LABS: INR is 2.1. Urine shows multidrug resistant pathogen. However blood culture remains to be negative. DIAGNOSTIC IMPRESSION AND PLAN: 1. Patient with sacral nonhealing wound with worsening seen on the CT concerning for sacral osteo. Patient needs surgical debridement and deep cultures that should determine discharge antibiotics or the patient needs to go back to the [facility] and surgical team were not able to do procedure here. 2. Patient with positive urine cultures, multidrug resistant pathogen. Patient did have urostomy, clinical no significance of these cultures with no fever. Recommend no further treatment for the same. MMODL / IJN: [id number] /
[2020-12-23] MEDS: TEMAZEPAM 15 MG CAP PO SCH (21:08)
[2020-12-23] MEDS: METOPROLOL TARTRATE 50 MG TAB PO SCH (21:08)
[2020-12-24] MEDS: AZTREONAM 2 GM in SODIUM CHLORIDE 0.9% 100 ML IVPB SCH ×4 (01:10→23:53)
[2020-12-24] MEDS: MORPHINE SULFATE 4 MG/ML SYRINGE IV PRN ×5 (02:12→23:52)
[2020-12-24] MEDS ORDERED: DILTIAZEM DRIP BOLUS FROM BAG 1 MG SOLN IV ONE (05:58)
[2020-12-24] MEDS ORDERED: ERGOCALCIFEROL 1,250 MCG (50,000 IU) CAPSULE PO SCH (09:00)
[2020-12-24] MEDS: DILTIAZEM 125 MG in SODIUM CHLORIDE 0.9% 100 ML IV SCH ×2 (09:17→20:50)
[2020-12-24] MEDS: MAGNESIUM OXIDE 400 MG TAB PO SCH (09:18)
[2020-12-24] MEDS: ASCORBIC ACID 500 MG TAB PO SCH (09:18)
[2020-12-24] MEDS: FLUCONAZOLE 100 MG TAB PO SCH (09:18)
[2020-12-24] MEDS: POTASSIUM CHLORIDE ER 20 MEQ TAB.ER PO SCH (09:18)
[2020-12-24] MEDS: FERROUS SULFATE 325 MG TAB PO SCH ×2 (09:18→20:39)
[2020-12-24] MEDS: DOCUSATE 100 MG CAP PO SCH ×2 (09:18→20:39)
[2020-12-24] MEDS: METOPROLOL TARTRATE 50 MG TAB PO SCH ×2 (09:18→20:39)
[2020-12-24] MEDS: MULTIVITAMINS, THERA 1 EACH TAB PO SCH (09:18)
[2020-12-24] MEDS: LINEZOLID 600 MG TAB PO SCH ×2 (09:18→20:39)
[2020-12-24 09:56] LABS: African American GFR (CKD) >90 (>60 ml/min/1.73 sqM); Anion Gap 6 mmol/L; Blood Urea Nitrogen 17 mg/dL (9-20); Calcium 8.6 mg/dL (8.4-10.2); Carbon Dioxide 21 mmol/L (22-30); Chloride 108 mmol/L (98-107); Glucose 92 mg/dL (74-99); Non-African American GFR(CKD) >90 (>60 ml/min/1.73 sqM); Potassium 4.7 mmol/L (3.5-5.1); Sodium 135 mmol/L (137-145)
[2020-12-24 09:59] LABS: Anisocytosis Slight; Basophils % (A) 0 %; Eosinophils # (A) 0.1 k/uL (0-0.7); Eosinophils % (A) 1 %; HCT 30.2 % (39.0-53.0); HGB 9.8 gm/dL (13.0-17.5); Hypochromasia Slight; Lymphocytes # (A) 0.5 k/uL (1.0-4.8); Lymphocytes % (A) 10 %; MCH 28.9 pg (25.0-35.0); MCHC 32.3 g/dL (31.0-37.0); MCV 89.3 fL (80.0-100.0); Mean Platelet Volume 6.7; Monocytes # (A) 0.3 k/uL (0-1.0); Monocytes % (A) 6 %; Neutrophils % (A) 81 %; Platelet Count 195 k/uL (150-450); RBC 3.39 m/uL (4.30-5.90); RDW 19.7 % (11.5-15.5); WBC 4.9 k/uL (3.8-10.6)
[2020-12-24 10:12] LABS: INR 1.5 (<1.2); Prothrombin Time 14.7 sec (9.0-12.0)
[2020-12-24 13:24] VITALS: BMI 20.1
--- NOTE | 2020-12-24 13:27 | P.PN ---
Subjective Progress Note Date: 12/24/20 CHIEF COMPLAINT: Fast heart rate and shortness of breath HISTORY OF PRESENT ILLNESS: Surgical service is following in regards to patient's chronic sacral wound. Patient's heart rate was into the 150s last night and was restarted on Cardizem drip. Patient has no new complaints. His ostomy is functioning. His dressings to the sacral wound are being changed. Afebrile. WBC 4.9 PHYSICAL EXAM: VITAL SIGNS: Reviewed. GENERAL: Well-developed in no acute distress. HEENT: No sclera icterus. Extraocular movements grossly intact. Moist buccal mucosa. Head is atraumatic, normocephalic. ABDOMEN: Soft. Nondistended. Nontender. NEUROLOGIC: Alert and oriented. Cranial nerves II through XII grossly intact. ASSESSMENT: 1.Chronic stage IV sacral decubitus ulcer PLAN: -No surgical intervention planned -Recommend that patient follows up with [facility] where he has had his previous surgeries. -Continue local wound care -Continue antibiotics per infectious disease Physician Display Coordinator note has been reviewed by physician. Signing provider agrees with the documented findings, assessment, and plan of care. Objective - Vital Signs Vital signs: Vital Signs Temp 97.2 F L 12/24/20 08:00 Pulse 99 12/24/20 13:06 Resp 18 12/24/20 13:06 BP 112/68 12/24/20 12:00 Pulse Ox 100 12/24/20 12:00 Intake & Output 12/23/20 12/24/20 12/24/20 18:59 06:59 18:59 Intake Total 478 125 Output Total 2600 1250 500 Balance -2122 -1250 -375 Weight 51.5 kg 51.5 kg Intake: Intake, IV Titration 125 Amount Diltiazem 125 mg In 125 Sodium Chloride 0.9% 100 ml @ 5 MG/HR 5 mls/hr IV .Q24H [facility] Rx#:[id number] Oral 478 0 Output: Urine 2600 1000 Right Lower Abdomen 300 Stool 250 500 Other: Voiding Method Ileal Conduit (Right) Ileal Conduit (Right) Ileal Conduit (Right) - Labs CBC & Chem 7: 12/24/20 08:54 12/24/20 08:54 Labs: Abnormal Lab Results - Last 24 Hours (Table) 08/09/21 08/09/21 08/09/21 Range/Units 08:54 08:54 08:54 RBC 3.39 L (4.30-5.90) m/uL Hgb 9.8 L (13.0-17.5) gm/dL Hct 30.2 L (39.0-53.0) % RDW 19.7 H (11.5-15.5) % Lymphocytes # 0.5 L (1.0-4.8) k/uL PT 14.7 H (9.0-12.0) sec INR 1.5 H (<1.2) Sodium 135 L (137-145) mmol/L Chloride 108 H (98-107) mmol/L Carbon Dioxide 21 L (22-30) mmol/L Creatinine 0.31 L (0.66-1.25) mg/dL Microbiology - Last 24 Hours (Table) 12/20/20 21:33 Blood Culture - Preliminary Blood No Growth after 72 hours 12/20/20 21:33 Blood Culture - Preliminary Blood No Growth after 72 hours 12/20/20 20:20 Urine Culture - Final Urine,Voided Kluyvera ascorbata
[2020-12-24] MEDS ORDERED: WARFARIN 5 MG TAB PO ONE (18:00)
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
[2020-12-24] MEDS: SODIUM CHLORIDE 0.9% IVPB SCH (19:35)
[2020-12-24] MEDS: DAPTOMYCIN IVPB SCH (19:35)
[2020-12-24] MEDS: ALPRAZolam 0.25 MG TAB PO PRN (20:39)
[2020-12-24] MEDS: TEMAZEPAM 15 MG CAP PO SCH (20:39)
[2020-12-25] MEDS: ALPRAZolam 0.25 MG TAB PO PRN (00:22)
[2020-12-25 01:15] VITALS: RESP 16
--- NOTE | 2020-12-25 08:19 | PN ---
PROGRESS NOTE DATE OF SERVICE: 12/24/2020 REASON FOR FOLLOWUP: 1. Abnormal CT with concern for sacral osteomyelitis. 2. UTI. INTERVAL HISTORY: The patient is afebrile. The patient is breathing comfortably. The patient is complaining of palpitation and shortness of breath this morning. No chest pain though. No vomiting. No abdominal pain. No diarrhea. PHYSICAL EXAMINATION: Blood pressure 109/70 with a pulse of 106. Temperature of 97.2. He is 100% on 2 L nasal cannula. General description is a middle-aged male lying in bed in no distress. Respiratory system: Unlabored breathing, decreased intensity of breath sounds in the base. Heart S1, S2. Regular rate and rhythm. Abdomen soft, no tenderness. Sacral wound is currently dressed. LABS: Hemoglobin 9.1, white count 4.9, BUN of 17, creatinine 0.31. DIAGNOSTIC IMPRESSION AND PLAN: 1. Patient with chronic sacral osteomyelitis. Has been treated with multiple courses of antibiotic therapy. The patient now with CT shows slight worsening on the right side. ideally should have debridement and deep cultures and antibiotic based on the culture for which the patient needs to be transferred to [facility]. Wound not recommend antibiotic on discharge on the basis of superficial culture. 2. Positive urine culture with gram negtative bacteria. However, the patient does have urostomy and not a clean sample.not symptomatic UTI and no need for antibiotics MMODL / IJN: [id number] / MTDD
[2020-12-25] MEDS: MORPHINE SULFATE 4 MG/ML SYRINGE IV PRN (09:07)
[2020-12-25] MEDS: DOCUSATE 100 MG CAP PO SCH (09:08)
[2020-12-25] MEDS: METOPROLOL TARTRATE 50 MG TAB PO SCH (09:08)
[2020-12-25] MEDS: POTASSIUM CHLORIDE ER 20 MEQ TAB.ER PO SCH (09:08)
[2020-12-25] MEDS: FERROUS SULFATE 325 MG TAB PO SCH (09:08)
[2020-12-25] MEDS: FLUCONAZOLE 100 MG TAB PO SCH (09:08)
[2020-12-25] MEDS: LINEZOLID 600 MG TAB PO SCH (09:08)
[2020-12-25] MEDS: MULTIVITAMINS, THERA 1 EACH TAB PO SCH (09:09)
[2020-12-25] MEDS: MAGNESIUM OXIDE 400 MG TAB PO SCH (09:09)
[2020-12-25] MEDS: AZTREONAM 2 GM in SODIUM CHLORIDE 0.9% 100 ML IVPB SCH (09:09)
[2020-12-25] MEDS: ASCORBIC ACID 500 MG TAB PO SCH (09:09)
[2020-12-25 09:16] VITALS: TEMP 96.3
[2020-12-25] MEDS ORDERED: VERAPAMIL 40 MG TAB PO SCH (10:00)
[2020-12-25 10:03] LABS: INR 1.4 (<1.2); Prothrombin Time 14.2 sec (9.0-12.0)
[2020-12-25] MEDS: DILTIAZEM 125 MG in SODIUM CHLORIDE 0.9% 100 ML IV SCH (11:01)
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
[2020-12-25 12:07] LABS: T4, Free (Free Thyroxine) 0.94 ng/dL (0.78-2.19)
[2020-12-25 12:34] VITALS: BP 105/60; PULSE 79
--- NOTE | 2020-12-25 14:51 | P.PN ---
Subjective Progress Note Date: 12/25/20 CHIEF COMPLAINT: Fast heart rate and shortness of breath HISTORY OF PRESENT ILLNESS: Surgical service is following in regards to patient's chronic sacral wound. Patient has no new complaints. His ostomy is functioning. SVT followed by cardiology. Afebrile. PHYSICAL EXAM: VITAL SIGNS: Reviewed. GENERAL: Well-developed in no acute distress. HEENT: No sclera icterus. Extraocular movements grossly intact. Moist buccal mucosa. Head is atraumatic, normocephalic. ABDOMEN: Soft. Nondistended. Nontender. NEUROLOGIC: Alert and oriented. Cranial nerves II through XII grossly intact. ASSESSMENT: 1.Chronic stage IV sacral decubitus ulcer PLAN: -No surgical intervention planned -Recommend that patient follows up with [facility] where he has had his previous surgeries. -Continue local wound care -Continue antibiotics per infectious disease Physician Photographic Press Screwmaker note has been reviewed by physician. Signing provider agrees with the documented findings, assessment, and plan of care. Objective - Vital Signs Vital signs: Vital Signs Temp 96.3 F L 12/25/20 08:00 Pulse 79 12/25/20 12:00 Resp 16 12/25/20 12:00 BP 105/60 12/25/20 12:00 Pulse Ox 100 12/25/20 12:00 Intake & Output 12/24/20 12/25/20 12/25/20 18:59 06:59 18:59 Intake Total 605 115.5 240 Output Total 1125 875 750 Balance -520 -759.5 -510 Weight 51.5 kg 60 kg Intake: Intake, IV Titration 125 115.5 Amount Diltiazem 125 mg In 125 115.5 Sodium Chloride 0.9% 100 ml @ 10 MG/HR 10 mls/hr IV .[id number] [facility] Rx#: [id number] Oral 480 240 Output: Urine 625 675 450 Stool 500 200 300 Other: Voiding Method Ileal Conduit (Right) Ileal Conduit (Right) Ileal Conduit (Right) - Labs CBC & Chem 7: 12/24/20 08:54 12/24/20 08:54 Labs: Abnormal Lab Results - Last 24 Hours (Table) 12/25/20 12/25/20 Range/Units 09:08 09:08 PT 14.2 H (9.0-12.0) sec INR 1.4 H (<1.2) TSH 5.450 H (0.465-4.680) mIU/L Microbiology - Last 24 Hours (Table) 12/20/20 21:33 Blood Culture - Preliminary Blood No Growth after 96 hours 12/20/20 21:33 Blood Culture - Preliminary Blood No Growth after 96 hours
[2020-12-25] MEDS ORDERED: WARFARIN 3 MG TAB PO ONE (18:00)
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
--- NOTE | 2020-12-25 21:38 | P.PN ---
Progress Note - Text Progress Note Date: 12/25/20 REASON FOR FOLLOWUP: 1. Abnormal CT with concern for sacral osteomyelitis. 2. UTI. INTERVAL HISTORY: The patient remains to be afebrile. The patient is breathing comfortably. The patient denies palpitation and shortness of breath this morning. No chest pain though. No vomiting. No abdominal pain. No diarrhea. PHYSICAL EXAMINATION: Blood pressure 110/70 with a pulse of 96. Temperature of 97.2. He is 100% on 2 L nasal cannula. General description is a middle-aged male lying in bed in no distress. Respiratory system: Unlabored breathing, decreased intensity of breath sounds in the base. Heart S1, S2. Regular rate and rhythm. Abdomen soft, no tenderness. Sacral wound is currently dressed. LABS: reviewed DIAGNOSTIC IMPRESSION AND PLAN: 1. Patient with chronic sacral osteomyelitis. Has been treated with multiple courses of antibiotic therapy. The patient now with CT shows slight worsening on the right side. ideally should have debridement and deep cultures and antibiotic based on the culture for which the patient needs to be transferred to [facility], as surgical team at this facility would not touch him. 2. Positive urine culture with MDR gram negtative bacteria. However, the patient does have urostomy and not a clean sample.not symptomatic UTI and no need for antibiotics on discharge discussed with the admitting physician
== END 2020-12-25 16:04 | disposition home or self-care (01) | DRG 308 ==
LOC: EC 19:50 → 3SCARD 23:19
PROVIDERS: ADMIT Hospitalist; ATTEND Hospitalist
DX: I47.1 Supraventricular tachycardia (principal); L89.154 Pressure ulcer of sacral region, stage 4; Z16.24 Resistance to multiple antibiotics; G82.20 Paraplegia, unspecified; M46.28 Osteomyelitis of vertebra, sacral and sacrococcygeal region; E87.1 Hypo-osmolality and hyponatremia; N30.00 Acute cystitis without hematuria; K56.7 Ileus, unspecified; L89.319 Pressure ulcer of right buttock, unspecified stage; Z93.3 Colostomy status; Z88.1 Allergy status to other antibiotic agents; Z87.440 Personal history of urinary (tract) infections; Z86.718 Personal history of other venous thrombosis and embolism; Z86.711 Personal history of pulmonary embolism; Z86.14 Personal history of Methicillin resistant Staphylococcus aureus infection; Z82.49 Family history of ischemic heart disease and other diseases of the circulatory system; Z79.899 Other long term (current) drug therapy; Z79.2 Long term (current) use of antibiotics; Z79.01 Long term (current) use of anticoagulants; Z93.6 Other artificial openings of urinary tract status; F17.200 Nicotine dependence, unspecified, uncomplicated; F41.9 Anxiety disorder, unspecified; F51.04 Psychophysiologic insomnia; G89.29 Other chronic pain; I10 Essential (primary) hypertension; Z95.4 Presence of other heart-valve replacement; Z91.19 Patient's noncompliance with other medical treatment and regimen; B96.89 Other specified bacterial agents as the cause of diseases classified elsewhere; L89.892 Pressure ulcer of other site, stage 2
CPT/HCPCS: 36415; 71046; 74177; 80048; 80053; 81001; 83605; 83735; 84439; 84443; 84484; 85025; 85610; 85730; 87040; 87077; 87086; 87186; 93005; 96365; 96366; 96375; 99291

== ENCOUNTER 2020-12-31 21:45 | Emergency (ER) | payer OTHER ==
[2020-12-31] MEDS ORDERED: ACETAMINOPHEN TAB 500 MG TAB PO STA (21:55)
[2020-12-31] MEDS ORDERED: SODIUM CHLORIDE 0.9% 1,000 ML IV SCH (22:00)
[2020-12-31 22:34] LABS: Appearance,Urine Cloudy (Clear); Bacteria,Urine Many /hpf; Bilirubin,Urine Negative (Negative); Blood,Urine Small (Negative); Color,Urine Yellow; Glucose,Urine (UA) Negative (Negative); Hyaline Casts,Urine 6 /lpf (0-2); Ketones,Urine Negative (Negative); Leukocyte Esterase,Urine Large (Negative); Mucus,Urine Few /hpf; Nitrite,Urine Positive (Negative); Protein,Urine 2+ (Negative); RBC,Urine 27 /hpf (0-5); Specific Gravity,Urine 1.014 (1.001-1.035); Squamous Epithelial Cell,Urine <1 /hpf (0-4); Urobilinogen,Urine <2.0 mg/dL (<2.0); WBC,Urine 17 /hpf (0-5)
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
[2020-12-31] MEDS ORDERED: HYDROmorphone 1 MG/ML 1 ML SYRINGE IVP STA (22:48)
[2020-12-31] MEDS: SODIUM CHLORIDE 0.9% 500 ML 500 ML IV SCH ×2 (22:50→23:23)
[2020-12-31] MEDS ORDERED: AZTREONAM 1 GM in SODIUM CHLORIDE 0.9% 50 ML IVPB STA (22:53)
[2020-12-31] MEDS ORDERED: LINEZOLID 600 MG in DEXTROSE/WATER 1 300ML.BAG IVPB STA (22:53)
[2020-12-31] MEDS ORDERED: SODIUM CHLORIDE 0.9% IVPB SCH (23:00)
[2020-12-31] MEDS ORDERED: DAPTOMYCIN IVPB SCH (23:00)
[2020-12-31 23:30] LABS: Anisocytosis Moderate; Basophils % (A) 0 %; Eosinophils # (A) 0.1 k/uL (0-0.7); Eosinophils % (A) 1 %; HCT 26.8 % (39.0-53.0); HGB 8.9 gm/dL (13.0-17.5); Hypochromasia Slight; Lymphocytes # (A) 0.7 k/uL (1.0-4.8); Lymphocytes % (A) 7 %; MCH 28.9 pg (25.0-35.0); MCHC 33.3 g/dL (31.0-37.0); MCV 86.7 fL (80.0-100.0); Mean Platelet Volume 7.2; Monocytes # (A) 0.5 k/uL (0-1.0); Monocytes % (A) 5 %; Neutrophils # (A) 9.2 k/uL (1.3-7.7); Neutrophils % (A) 86 %; Poikilocytosis Slight; RBC 3.09 m/uL (4.30-5.90); RDW 20.2 % (11.5-15.5); WBC 10.7 k/uL (3.8-10.6)
[2020-12-31 23:32] VITALS: BP 106/66; RESP 20
[2020-12-31 23:33] LABS: Platelet Count 410 k/uL (150-450)
[2020-12-31 23:36] LABS: ALT 26 U/L (4-49); AST 39 U/L (17-59); African American GFR (CKD) >90 (>60 ml/min/1.73 sqM); Alkaline Phosphatase 985 U/L (38-126); Anion Gap 7 mmol/L; Blood Urea Nitrogen 26 mg/dL (9-20); Calcium 8.3 mg/dL (8.4-10.2); Carbon Dioxide 20 mmol/L (22-30); Chloride 108 mmol/L (98-107); Glucose 117 mg/dL (74-99); Non-African American GFR(CKD) >90 (>60 ml/min/1.73 sqM); Potassium 4.7 mmol/L (3.5-5.1); Sodium 135 mmol/L (137-145); Total Bilirubin 0.2 mg/dL (0.2-1.3); Total Protein 6.3 g/dL (6.3-8.2)
[2020-12-31 23:50] LABS: Partial Thromboplastin Time 26.3 sec (22.0-30.0); Prothrombin Time 10.9 sec (9.0-12.0)
[2021-01-01 00:03] LABS: C Reactive Protein 7.4 mg/dL (<1.0)
[2021-01-01 00:05] VITALS: PULSE 107; TEMP 99.1
[2021-01-01] MEDS ORDERED: diphenhydrAMINE 50 MG/ML 1 ML VIAL IVP STA (00:09)
== END 2021-01-01 00:24 | disposition other institution (70) ==
LOC: EC 21:45
DX: A41.9 Sepsis, unspecified organism (principal); L89.154 Pressure ulcer of sacral region, stage 4; M86.462 Chronic osteomyelitis with draining sinus, left tibia and fibula; I10 Essential (primary) hypertension; F17.200 Nicotine dependence, unspecified, uncomplicated; F12.90 Cannabis use, unspecified, uncomplicated; Z79.01 Long term (current) use of anticoagulants; Z79.899 Other long term (current) drug therapy; Z88.0 Allergy status to penicillin; Z88.1 Allergy status to other antibiotic agents; Z88.2 Allergy status to sulfonamides; Z82.49 Family history of ischemic heart disease and other diseases of the circulatory system; Z95.2 Presence of prosthetic heart valve
CPT/HCPCS: 36415; 93005; 80053; 83605; 85025; 85610; 85730; 86140; 81001; 87086; 87635; 96365; 96375 ×3; 99285; J1200; J2020; J1170

== ENCOUNTER 2021-01-08 18:29 | Inpatient (IN) | payer OTHER ==
[2021-01-08] MEDS ORDERED: ASPIRIN 81 MG PO STA (18:56)
[2021-01-08] MEDS ORDERED: SODIUM CHLORIDE 0.9% 1,000 ML IV STA (18:56)
[2021-01-08] MEDS ORDERED: DILTIAZEM 5 MG/ML 5 ML VIAL IVP STA (18:57)
[2021-01-08] MEDS ORDERED: DILTIAZEM 125 MG in SODIUM CHLORIDE 0.9% 100 ML IV SCH (19:00)
[2021-01-08 19:15] LABS: Anisocytosis Slight; Basophils % (A) 0 %; Eosinophils # (A) 0.1 k/uL (0-0.7); Eosinophils % (A) 1 %; HCT 27.1 % (39.0-53.0); HGB 8.4 gm/dL (13.0-17.5); Hypochromasia Moderate; Lymphocytes # (A) 0.7 k/uL (1.0-4.8); Lymphocytes % (A) 6 %; MCH 27.6 pg (25.0-35.0); MCHC 31.2 g/dL (31.0-37.0); MCV 88.7 fL (80.0-100.0); Mean Platelet Volume 7.5; Monocytes # (A) 0.7 k/uL (0-1.0); Monocytes % (A) 6 %; Neutrophils # (A) 9.2 k/uL (1.3-7.7); Neutrophils % (A) 85 %; Platelet Count 449 k/uL (150-450); Poikilocytosis Slight; RBC 3.06 m/uL (4.30-5.90); RDW 19.4 % (11.5-15.5); WBC 10.8 k/uL (3.8-10.6)
[2021-01-08 19:28] LABS: INR 1.4 (<1.2); Partial Thromboplastin Time 33.8 sec (22.0-30.0); Prothrombin Time 14.5 sec (9.0-12.0)
[2021-01-08 19:29] LABS: ALT 20 U/L (4-49); AST 28 U/L (17-59); African American GFR (CKD) >90 (>60 ml/min/1.73 sqM); Albumin 2.9 g/dL (3.5-5.0); Alkaline Phosphatase 1191 U/L (38-126); Anion Gap 10 mmol/L; Blood Urea Nitrogen 19 mg/dL (9-20); Calcium 8.7 mg/dL (8.4-10.2); Carbon Dioxide 16 mmol/L (22-30); Chloride 106 mmol/L (98-107); Glucose 136 mg/dL (74-99); Magnesium 1.8 mg/dL (1.6-2.3); Non-African American GFR(CKD) >90 (>60 ml/min/1.73 sqM); Potassium 4.7 mmol/L (3.5-5.1); Sodium 132 mmol/L (137-145); Total Bilirubin 0.5 mg/dL (0.2-1.3); Total Protein 6.4 g/dL (6.3-8.2)
--- NOTE | 2021-01-08 19:44 | XR ---
EXAMINATION TYPE: XR chest 1V portable DATE OF EXAM: 01/08/2021 CLINICAL HISTORY: chest pain. TECHNIQUE: Supine view of the chest obtained. COMPARISON: 12/20/2020 FINDINGS: Right-sided internal jugular MediPort, sternotomy wires, fixation rods, valvular prosthesi s, mediastinal surgical clips. The cardiomediastinal silhouette is within normal limits for size. Pul monary vasculature is mildly centrally prominent. There is no focal air space opacity. No pleural ef fusion. No pneumothorax within limitations of supine technique. No acute displaced osseous fracture. IMPRESSION: Persistent mildly centrally prominent pulmonary vasculature versus lung markings.
[2021-01-08] MEDS ORDERED: HYDROcodone/APAP 10-325MG 1 EACH TAB PO ONE (20:32)
[2021-01-08] MEDS ORDERED: diphenhydrAMINE 50 MG/ML 1 ML VIAL IVP STA (22:54)
[2021-01-08] MEDS ORDERED: CEFEPIME 2 GM in SODIUM CHLORIDE 0.9% 100 ML IVPB STA (22:54)
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
[2021-01-08] MEDS ORDERED: NITROGLYCERIN SL TABS 0.4 MG TAB SUBLINGUAL PRN (23:12)
[2021-01-08] MEDS ORDERED: ALPRAZolam 0.25 MG TAB PO PRN (23:19)
[2021-01-08] MEDS ORDERED: HYDROcodone/APAP 10-325MG 1 EACH TAB PO PRN (23:19)
[2021-01-08] MEDS ORDERED: ACETAMINOPHEN TAB 325 MG TAB PO PRN (23:23)
[2021-01-09] MEDS ORDERED: WARFARIN 5 MG TAB PO ONE ×2 (01:15→18:00)
[2021-01-09 04:14] LABS: Appearance,Urine Clear (Clear); Bacteria,Urine Rare /hpf; Bilirubin,Urine Negative (Negative); Blood,Urine Small (Negative); Budding Yeast,Urine Occasional /hpf; Color,Urine Yellow; Glucose,Urine (UA) Negative (Negative); Ketones,Urine Trace (Negative); Leukocyte Esterase,Urine Small (Negative); Mucus,Urine Occasional /hpf; Nitrite,Urine Negative (Negative); Protein,Urine 2+ (Negative); RBC,Urine 9 /hpf (0-5); Specific Gravity,Urine 1.022 (1.001-1.035); Squamous Epithelial Cell,Urine <1 /hpf (0-4); Urobilinogen,Urine <2.0 mg/dL (<2.0); WBC,Urine 16 /hpf (0-5)
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
[2021-01-09 08:06] VITALS: RESP 18; TEMP 99.6
[2021-01-09] MEDS: diphenhydrAMINE 25 MG CAP PO PRN ×2 (08:11→15:36)
[2021-01-09] MEDS: CEFEPIME 2 GM VIAL IVPB SCH ×2 (08:11→15:36)
[2021-01-09] MEDS ORDERED: MAGNESIUM OXIDE 400 MG TAB PO SCH (09:00)
[2021-01-09] MEDS ORDERED: ASPIRIN 325 MG TAB PO SCH (09:00)
[2021-01-09] MEDS ORDERED: METOPROLOL TARTRATE 50 MG TAB PO SCH ×2 (09:00→21:00)
[2021-01-09] MEDS ORDERED: FUROSEMIDE 80 MG TAB PO SCH (09:00)
[2021-01-09] MEDS ORDERED: DOCUSATE 100 MG CAP PO SCH (09:00)
[2021-01-09] MEDS ORDERED: FERROUS SULFATE 325 MG TAB PO SCH (09:00)
[2021-01-09] MEDS ORDERED: ASCORBIC ACID 500 MG TAB PO SCH (09:00)
[2021-01-09] MEDS ORDERED: MULTIVITAMINS, THERA 1 EACH TAB PO SCH (09:00)
[2021-01-09] MEDS ORDERED: DILTIAZEM CD 120 MG CAP.ER.24H PO SCH (09:15)
[2021-01-09 11:57] VITALS: BP 95/52; PULSE 87
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
[2021-01-09] MEDS ORDERED: TEMAZEPAM 30 MG CAP PO SCH (21:00)
[2021-01-09] MEDS ORDERED: WARFARIN 3 MG TAB PO SCH (21:00)
[2021-01-14] MEDS ORDERED: ERGOCALCIFEROL 1,250 MCG (50,000 IU) CAPSULE PO SCH (09:00)
== END 2021-01-09 16:26 | disposition home health service (06) | DRG 308 ==
LOC: EC 18:29 → 3SCARD 23:12
PROVIDERS: ADMIT Internal Medicine; ATTEND Internal Medicine
DX: I47.1 Supraventricular tachycardia (principal); L89.154 Pressure ulcer of sacral region, stage 4; A41.9 Sepsis, unspecified organism; M86.68 Other chronic osteomyelitis, other site; E87.2 Acidosis; G82.20 Paraplegia, unspecified; D63.8 Anemia in other chronic diseases classified elsewhere; F17.210 Nicotine dependence, cigarettes, uncomplicated; R63.5 Abnormal weight gain; Z68.30 Body mass index [BMI] 30.0-30.9, adult; I10 Essential (primary) hypertension; V89.2XXS Person injured in unspecified motor-vehicle accident, traffic, sequela; Z79.01 Long term (current) use of anticoagulants; Z79.899 Other long term (current) drug therapy; Z82.49 Family history of ischemic heart disease and other diseases of the circulatory system; Z86.711 Personal history of pulmonary embolism; Z86.718 Personal history of other venous thrombosis and embolism; Z93.3 Colostomy status; Z95.3 Presence of xenogenic heart valve; Z86.14 Personal history of Methicillin resistant Staphylococcus aureus infection; Z88.1 Allergy status to other antibiotic agents; Z88.2 Allergy status to sulfonamides; F15.929 Other stimulant use, unspecified with intoxication, unspecified; Z71.89 Other specified counseling
CPT/HCPCS: 36415; 71045; 80053; 81001; 83605; 83735; 83880; 84484; 85025; 85610; 85730; 87086; 93005; 96361; 96374; 99285

== ENCOUNTER 2021-02-03 00:16 | Inpatient (IN) | payer OTHER ==
[2021-02-03] MEDS ORDERED: ADENOSINE 3 MG/ML 2 ML VIAL IVP STA ×2 (00:33→00:52)
[2021-02-03] MEDS ORDERED: MORPHINE SULFATE 4 MG/ML SYRINGE IV STA (00:42)
[2021-02-03] MEDS ORDERED: SODIUM CHLORIDE 0.9% 1,000 ML IV ONE (00:46)
[2021-02-03] MEDS ORDERED: LORazepam 2 MG/ML INJ IV STA (00:52)
[2021-02-03 00:54] LABS: Anisocytosis Slight; Basophils % (A) 0 %; Eosinophils # (A) 0.1 k/uL (0-0.7); Eosinophils % (A) 1 %; HCT 30.4 % (39.0-53.0); HGB 9.4 gm/dL (13.0-17.5); Lymphocytes # (A) 0.9 k/uL (1.0-4.8); Lymphocytes % (A) 11 %; MCH 27.9 pg (25.0-35.0); Mean Platelet Volume 7.3; Monocytes # (A) 0.6 k/uL (0-1.0); Monocytes % (A) 8 %; Neutrophils # (A) 6.1 k/uL (1.3-7.7); Neutrophils % (A) 78 %; Platelet Count 357 k/uL (150-450); RBC 3.38 m/uL (4.30-5.90); RDW 19.5 % (11.5-15.5); WBC 7.8 k/uL (3.8-10.6)
[2021-02-03 01:05] LABS: ALT 43 U/L (4-49); AST 61 U/L (17-59); African American GFR (CKD) >90 (>60 ml/min/1.73 sqM); Albumin 3.1 g/dL (3.5-5.0); Anion Gap 9 mmol/L; Blood Urea Nitrogen 30 mg/dL (9-20); Calcium 8.9 mg/dL (8.4-10.2); Carbon Dioxide 23 mmol/L (22-30); Chloride 105 mmol/L (98-107); Glucose 121 mg/dL (74-99); Magnesium 2.1 mg/dL (1.6-2.3); Non-African American GFR(CKD) >90 (>60 ml/min/1.73 sqM); Potassium 4.5 mmol/L (3.5-5.1); Sodium 137 mmol/L (137-145); Total Bilirubin 1.1 mg/dL (0.2-1.3)
--- NOTE | 2021-02-03 01:08 | XR ---
EXAMINATION TYPE: XR chest 1V portable DATE OF EXAM: 02/03/2021 COMPARISON: 01/08/2021 HISTORY: Dysrhythmia TECHNIQUE: FINDINGS: There is no heart failure nor confluent pneumonic infiltrate. Costophrenic angles are clear . There are sternal wires. There is cardiac valve surgery. There is right central venous catheter wit h tip in the superior vena cava. Bony thorax appears intact. IMPRESSION: No active cardiopulmonary disease. No change compared to old exam.
[2021-02-03 01:13] LABS: INR 1.1 (<1.2); Partial Thromboplastin Time 33.3 sec (22.0-30.0); Prothrombin Time 11.6 sec (9.0-12.0)
[2021-02-03 01:50] LABS: Alkaline Phosphatase 1534 U/L (38-126)
[2021-02-03] MEDS ORDERED: NITROGLYCERIN SL TABS 0.4 MG TAB SUBLINGUAL PRN (04:54)
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
[2021-02-03] MEDS ORDERED: ENOXAPARIN 40 MG/0.4 ML SYRINGE SQ SCH (09:00)
[2021-02-03] MEDS: MORPHINE SULFATE 2 MG/ML SYRINGE IVP PRN ×3 (11:16→19:17)
[2021-02-03] MEDS: ALPRAZolam 0.25 MG TAB PO PRN (13:52)
[2021-02-03] MEDS: HYDROcodone/APAP 10-325MG 1 EACH TAB PO PRN (13:52)
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
[2021-02-03] MEDS: DAPTOmycin 500 MG in SODIUM CHLORIDE 0.9% 50 ML IVPB SCH (15:08)
[2021-02-03] MEDS ORDERED: DAPTOmycin 500 MG in SODIUM CHLORIDE 0.9% 50 ML IVPB SCH (16:00)
[2021-02-03] MEDS: MEROPENEM 1 GM in SODIUM CHLORIDE 0.9% 100 ML IVPB SCH (17:02)
[2021-02-03] MEDS ORDERED: CILASTATIN SODIUM IV SCH (18:00)
[2021-02-03] MEDS ORDERED: WARFARIN 3 MG TAB PO ONE (18:00)
[2021-02-03] MEDS ORDERED: IMIPENEM IV SCH (18:00)
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
[2021-02-03] MEDS: ASCORBIC ACID 500 MG TAB PO SCH (20:58)
[2021-02-03] MEDS ORDERED: TEMAZEPAM 30 MG CAP PO SCH (21:00)
[2021-02-03] MEDS ORDERED: WARFARIN 3 MG TAB PO SCH (21:00)
[2021-02-03] MEDS: COLLAGENASE 250 UNIT/GM OINTMENT 30 GM TUBE TOPICAL SCH (21:01)
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
[2021-02-04] MEDS: MEROPENEM 1 GM in SODIUM CHLORIDE 0.9% 100 ML IVPB SCH ×3 (00:11→17:46)
[2021-02-04] MEDS: ENOXAPARIN 60 MG/0.6 ML SYRINGE SQ SCH ×3 (00:11→20:24)
[2021-02-04] MEDS: ALPRAZolam 0.25 MG TAB PO PRN ×2 (00:11→23:01)
[2021-02-04] MEDS: MORPHINE SULFATE 2 MG/ML SYRINGE IVP PRN ×6 (00:11→23:01)
[2021-02-04] MEDS: TEMAZEPAM 15 MG CAP PO SCH ×2 (00:21→23:01)
[2021-02-04 06:36] LABS: Glucose,Whole Blood 92 mg/dL (75-99)
[2021-02-04] MEDS ORDERED: DAPTOmycin 500 MG VIAL IV SCH (09:00)
[2021-02-04] MEDS ORDERED: ASPIRIN 81 MG PO SCH (09:00)
[2021-02-04] MEDS ORDERED: ASPIRIN 325 MG TAB PO SCH (09:00)
[2021-02-04] MEDS: FERROUS SULFATE 325 MG TAB PO SCH (09:11)
[2021-02-04] MEDS: MULTIVITAMINS, THERA 1 EACH TAB PO SCH (09:11)
[2021-02-04] MEDS: ASCORBIC ACID 500 MG TAB PO SCH ×2 (09:11→20:26)
[2021-02-04] MEDS: MAGNESIUM OXIDE 400 MG TAB PO SCH (09:11)
[2021-02-04 09:24] LABS: INR 1.4 (<1.2); Prothrombin Time 14.1 sec (9.0-12.0)
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
[2021-02-04 14:33] VITALS: BMI 27.8
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
[2021-02-04 15:42] LABS: Chol/HDL Ratio 4.9; LDL Cholesterol,Calculated 134.4 mg/dL (0.0-131.0); VLDL Calculation 29.6 mg/dL (5.00-40.00)
[2021-02-04] MEDS: DAPTOmycin 500 MG in SODIUM CHLORIDE 0.9% 50 ML IVPB SCH (15:45)
[2021-02-04] MEDS: HYDROcodone/APAP 10-325MG 1 EACH TAB PO PRN (17:42)
[2021-02-04] MEDS ORDERED: WARFARIN 5 MG TAB PO ONE (18:00)
[2021-02-04] MEDS: COLLAGENASE 250 UNIT/GM OINTMENT 30 GM TUBE TOPICAL SCH (20:25)
[2021-02-05] MEDS: MEROPENEM 1 GM in SODIUM CHLORIDE 0.9% 100 ML IVPB SCH ×3 (00:42→17:45)
--- NOTE | 2021-02-05 05:45 | PN ---
PROGRESS NOTE DATE OF SERVICE: 02/04/2021. REASON FOR FOLLOWUP: Fever and infected sacral pressure ulcer. INTERVAL HISTORY: Patient overall fever pattern has improved. The patient is breathing comfortably, tachycardia has improved as well. Denies any chest pain, shortness of breath, cough. No abdominal pain or diarrhea. PHYSICAL EXAMINATION: Blood pressure 123/67, pulse 107. he is 100% on room air. General description is a middle-aged male lying in bed in no distress. Respiratory system: Unlabored breathing, clear to auscultation anteriorly. Heart S1, S2. Regular rate and rhythm. Abdomen soft, no tenderness. Sacral wound is currently dressed. LAB: INR is 1.4, [place] PCR is negative. Blood culture negative so far. DIAGNOSTIC IMPRESSION AND PLAN: Patient with infected sacral pressure ulcer which needs surgical debridement and deep cultures. Local care to continue with Santyl and moist dressing. Continue with meropenem, daptomycin and monitor clinical course closely. MMODL / IJN: [id number] /
[2021-02-05] MEDS: ASCORBIC ACID 500 MG TAB PO SCH ×2 (09:52→20:44)
[2021-02-05] MEDS: ENOXAPARIN 60 MG/0.6 ML SYRINGE SQ SCH ×2 (09:52→20:43)
[2021-02-05] MEDS: FERROUS SULFATE 325 MG TAB PO SCH (09:52)
[2021-02-05] MEDS: MAGNESIUM OXIDE 400 MG TAB PO SCH (09:52)
[2021-02-05] MEDS: MULTIVITAMINS, THERA 1 EACH TAB PO SCH (09:52)
[2021-02-05] MEDS: COLLAGENASE 250 UNIT/GM OINTMENT 30 GM TUBE TOPICAL SCH (09:53)
[2021-02-05] MEDS: MORPHINE SULFATE 2 MG/ML SYRINGE IVP PRN ×3 (10:06→20:45)
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
[2021-02-05] MEDS: HYDROcodone/APAP 10-325MG 1 EACH TAB PO PRN (13:22)
[2021-02-05 13:44] LABS: INR 1.4 (<1.2); Prothrombin Time 13.8 sec (9.0-12.0)
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
[2021-02-05] MEDS: DAPTOmycin 500 MG in SODIUM CHLORIDE 0.9% 50 ML IVPB SCH (15:36)
[2021-02-05] MEDS: METOPROLOL TARTRATE 12.5 MG TAB PO SCH ×2 (15:57→20:44)
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
--- NOTE | 2021-02-05 17:30 | PN ---
PROGRESS NOTE DATE OF SERVICE: 02/05/2021 REASON FOR FOLLOWUP: Infected sacral pressure ulcer. INTERVAL HISTORY: The patient is afebrile. The patient is currently breathing comfortably. Denies any chest pain or shortness of breath or cough. No abdominal pain or any diarrhea. PHYSICAL EXAMINATION: Blood pressure 126/80 with a pulse of 130, temperature 97.9. He is 100% on room air. GENERAL DESCRIPTION: General description is a middle-aged male lying in bed in no distress. RESPIRATORY SYSTEM: Unlabored breathing. Clear to auscultation anteriorly. HEART: S1, S2. Regular rate and rhythm. ABDOMEN: Soft. No tenderness. LABS: INR is 1.4. DIAGNOSTIC IMPRESSION AND PLAN: Patient with an infected sacral pressure ulcer. Apparently he did have debridement done at [facility]. He still has necrotic tissue. May need further surgical debridement, which can be done by his [facility] physician. Continue with daptomycin and imipenem cilastian as prescribed by his [facility] physician with weekly CBC,BMP,CPK. advised to follow up with his physician as scheduled Continue supportive care. MMODL / IJN: [id number] / BENNIE
[2021-02-05] MEDS ORDERED: WARFARIN 2 MG TAB PO ONE (18:00)
[2021-02-05] MEDS: TEMAZEPAM 15 MG CAP PO SCH (20:43)
[2021-02-06] MEDS: MEROPENEM 1 GM in SODIUM CHLORIDE 0.9% 100 ML IVPB SCH ×4 (00:03→23:27)
[2021-02-06] MEDS: MORPHINE SULFATE 2 MG/ML SYRINGE IVP PRN ×4 (01:06→23:27)
[2021-02-06 08:09] LABS: INR 1.3 (<1.2)
[2021-02-06] MEDS: COLLAGENASE 250 UNIT/GM OINTMENT 30 GM TUBE TOPICAL SCH (08:47)
[2021-02-06] MEDS: FERROUS SULFATE 325 MG TAB PO SCH (08:47)
[2021-02-06] MEDS: ASCORBIC ACID 500 MG TAB PO SCH ×2 (08:47→19:46)
[2021-02-06] MEDS: MAGNESIUM OXIDE 400 MG TAB PO SCH (08:47)
[2021-02-06] MEDS: METOPROLOL TARTRATE 12.5 MG TAB PO SCH ×2 (08:47→19:46)
[2021-02-06] MEDS: ENOXAPARIN 60 MG/0.6 ML SYRINGE SQ SCH ×2 (08:47→19:46)
[2021-02-06] MEDS: MULTIVITAMINS, THERA 1 EACH TAB PO SCH (08:47)
[2021-02-06] MEDS: FUROSEMIDE 80 MG TAB PO SCH (10:25)
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
--- NOTE | 2021-02-06 13:35 | P.PN ---
Subjective Progress Note Date: 02/06/21 CHIEF COMPLAINT: Heart racing HISTORY OF PRESENT ILLNESS: Surgical service is following regards to patient's chronic stage IV sacral decubitus ulcer. Patient still having foul-smelling drainage from the wound. His pain is the same. Denies any nausea vomiting. Cardiology is following in regards to patient's SVT. He's afebrile. INR 1.3 PHYSICAL EXAM: VITAL SIGNS: Reviewed. GENERAL: Well-developed in no acute distress. HEENT: No sclera icterus. Extraocular movements grossly intact. Moist buccal mucosa. Head is atraumatic, normocephalic. ABDOMEN: Soft. Nondistended. Nontender. NEUROLOGIC: Alert and oriented. Cranial nerves II through XII grossly intact. ASSESSMENT: 1. Chronic Stage IV sacral decubitus ulcer. Patient has had multiple surgeries which were completed at [facility]. PLAN: -No plans for surgical intervention -Recommend that patient follows up with [facility] where he's had his previous surgeries -Continue local wound care -Continue antibiotics per ID -SVT management per cardiology Physician Steam Conditioner Filling note has been reviewed by physician. Signing provider agrees with the documented findings, assessment, and plan of care. Objective - Vital Signs Vital signs: Vital Signs Temp 98.3 F 02/06/21 08:45 Pulse 109 H 02/06/21 09:06 Resp 18 02/06/21 08:45 BP 120/68 02/06/21 08:45 Pulse Ox 100 02/06/21 08:45 Intake & Output 02/05/21 02/06/21 02/06/21 18:59 06:59 18:59 Intake Total 240 180 Output Total 1400 Balance -1160 180 Weight 77.2 kg Intake: Oral 240 180 Output: Urine 1400 Other: # Voids 2 # Bowel Movements 1 - Labs CBC & Chem 7: 02/03/21 00:47 02/03/21 00:47 Labs: Abnormal Lab Results - Last 24 Hours (Table) 02/05/21 02/06/21 Range/Units 13:35 07:25 PT 13.8 H 13.0 H (9.0-12.0) sec INR 1.4 H 1.3 H (<1.2) Microbiology - Last 24 Hours (Table) 02/03/21 03:26 Blood Culture - Preliminary Blood No Growth after 72 hours 02/03/21 03:44 Blood Culture - Preliminary Blood No Growth after 72 hours
[2021-02-06] MEDS: DAPTOmycin 500 MG in SODIUM CHLORIDE 0.9% 50 ML IVPB SCH (13:50)
--- NOTE | 2021-02-06 15:40 | PN ---
PROGRESS NOTE DATE OF SERVICE: 02/06/2021 REASON FOR FOLLOWUP: Infected sacral pressure ulcer. INTERVAL HISTORY: The patient is afebrile. The patient is breathing comfortably. Denies having any chest pain or shortness of breath or cough. No vomiting, abdominal pain or diarrhea. PHYSICAL EXAMINATION: Blood pressure 120/68 with a pulse of 109, temperature 98.3. He is 100% on room air. GENERAL DESCRIPTION: General description is a middle-aged male lying in bed in no distress. RESPIRATORY SYSTEM: Unlabored breathing. Clear to auscultation anteriorly. HEART: S1, S2. Sacral wound is currently packed. No drainage on the dressing. LABS: INR is 1.3. culture has been negative. DIAGNOSTIC IMPRESSION AND PLAN: Patient with an infected sacral pressure ulcer, currently being treated at [facility] and is on IV Invanz and daptomycin. That will be continued. He needs further surgical debridement and can follow up with his physician at [facility]. Continue with supportive care. MMODL / IJN: [id number] /
[2021-02-06] MEDS ORDERED: WARFARIN 5 MG TAB PO ONE (18:00)
[2021-02-06] MEDS: TEMAZEPAM 15 MG CAP PO SCH (19:46)
[2021-02-07] MEDS: MORPHINE SULFATE 2 MG/ML SYRINGE IVP PRN ×2 (10:02→13:54)
[2021-02-07] MEDS: MEROPENEM 1 GM in SODIUM CHLORIDE 0.9% 100 ML IVPB SCH ×2 (10:02→17:12)
[2021-02-07] MEDS: FERROUS SULFATE 325 MG TAB PO SCH (10:03)
[2021-02-07] MEDS: MULTIVITAMINS, THERA 1 EACH TAB PO SCH (10:03)
[2021-02-07] MEDS: MAGNESIUM OXIDE 400 MG TAB PO SCH (10:03)
[2021-02-07] MEDS: FUROSEMIDE 80 MG TAB PO SCH (10:03)
[2021-02-07] MEDS: METOPROLOL TARTRATE 12.5 MG TAB PO SCH (10:03)
[2021-02-07] MEDS: ASCORBIC ACID 500 MG TAB PO SCH (10:03)
[2021-02-07] MEDS: ENOXAPARIN 60 MG/0.6 ML SYRINGE SQ SCH (10:03)
[2021-02-07] MEDS: COLLAGENASE 250 UNIT/GM OINTMENT 30 GM TUBE TOPICAL SCH (10:04)
[2021-02-07 10:18] LABS: INR 1.2 (<1.2); Prothrombin Time 12.3 sec (9.0-12.0)
[2021-02-07] MEDS ORDERED: METOPROLOL TARTRATE 25 MG TAB PO STA (11:38)
[2021-02-07] MEDS: DAPTOmycin 500 MG in SODIUM CHLORIDE 0.9% 50 ML IVPB SCH (13:58)
--- NOTE | 2021-02-07 14:29 | P.PN ---
Subjective Progress Note Date: 02/07/21 CHIEF COMPLAINT: Heart racing HISTORY OF PRESENT ILLNESS: Surgical service is following regards to patient's chronic stage IV sacral decubitus ulcer. Patient still having foul-smelling drainage from the wound. His pain is the same. Denies any nausea vomiting. He has no new complaints. He's afebrile. PHYSICAL EXAM: VITAL SIGNS: Reviewed. GENERAL: Well-developed in no acute distress. HEENT: No sclera icterus. Extraocular movements grossly intact. Moist buccal mucosa. Head is atraumatic, normocephalic. ABDOMEN: Soft. Nondistended. Nontender. NEUROLOGIC: Alert and oriented. Cranial nerves II through XII grossly intact. Skin: Stage IV sacral Ulcer with necrotic tissue on the left buttocks ASSESSMENT: 1. Chronic Stage IV sacral decubitus ulcer. Patient has had multiple surgeries which were completed at [facility]. PLAN: -No plans for surgical intervention -Patient can be discharged from surgical standpoint -Recommend that patient follows up with [facility] where he's had his previous surgeries -Continue local wound care -Continue antibiotics per ID -SVT management per cardiology Physician Gem Cutter note has been reviewed by physician. Signing provider agrees with the documented findings, assessment, and plan of care. Objective - Vital Signs Vital signs: Vital Signs Temp 97.9 F 02/07/21 12:35 Pulse 102 H 02/07/21 12:35 Resp 17 02/07/21 12:35 BP 108/65 02/07/21 12:35 Pulse Ox 100 02/07/21 12:35 Intake & Output 02/06/21 02/07/21 02/07/21 18:59 06:59 18:59 Intake Total 810 Output Total 3700 900 Balance -2890 -900 Weight 73.5 kg 73.5 kg Intake: Intake, IV Titration 150 Amount DAPTOmycin 500 mg In 50 Sodium Chloride 0.9% 50 ml @ 100 mls/hr IVPB Q24HR@1500 MAXIEM Rx#: [id number] Meropenem 1 gm In Sodium 100 Chloride 0.9% 100 ml @ 33 .333 mls/hr IVPB Q8HR MAXIME Rx#:[id number] Oral 660 Output: Urine 3500 900 Stool 200 Other: # Voids 1 - Labs CBC & Chem 7: 02/03/21 00:47 02/03/21 00:47 Labs: Abnormal Lab Results - Last 24 Hours (Table) 02/07/21 Range/Units 09:25 PT 12.3 H (9.0-12.0) sec INR 1.2 H (<1.2) Microbiology - Last 24 Hours (Table) 02/03/21 03:44 Blood Culture - Preliminary Blood No Growth after 96 hours 02/03/21 03:26 Blood Culture - Preliminary Blood No Growth after 96 hours
--- NOTE | 2021-02-07 15:13 | PN ---
PROGRESS NOTE DATE OF SERVICE: 02/07/2021 REASON FOR FOLLOWUP: Infected sacral pressure ulcer. INTERVAL HISTORY: The patient is afebrile. He is breathing comfortably. He still has off and on. Denies any chest pain, shortness of breath or cough. No abdominal pain or diarrhea. PHYSICAL EXAMINATION: Blood pressure 108/65, pulse of 102, temperature 97.9. He is 100% on room air. GENERAL DESCRIPTION: General description is a middle-aged male lying in bed in no distress. RESPIRATORY SYSTEM: Unlabored breathing. Clear to auscultation anteriorly. HEART: S1, S2. Regular rate and rhythm. ABDOMEN: Soft. No tenderness. LABS: INR is 1.2. DIAGNOSTIC IMPRESSION AND PLAN: Patient with an infected sacral pressure ulcer debrided at [facility] surgical team had the procedure done at the [facility]. The patient was on daptomycin and by his [facility] doctor. That will be continued until he he uses all of them. Local care to continue with Santyl. Continue with supportive care. MMODL / IJN: [id number] /
[2021-02-07 17:27] VITALS: BP 127/80; PULSE 124; RESP 16; TEMP 98
[2021-02-07] MEDS ORDERED: WARFARIN 3 MG TAB PO ONE (18:00)
[2021-02-07] MEDS ORDERED: METOPROLOL TARTRATE 25 MG TAB PO SCH (21:00)
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
== END 2021-02-07 18:10 | disposition home health service (06) | DRG 308 ==
LOC: EC 00:16 → 3SCARD 04:54
PROVIDERS: ADMIT Hospitalist; ATTEND Hospitalist
DX: I47.1 Supraventricular tachycardia (principal); L89.154 Pressure ulcer of sacral region, stage 4; G82.20 Paraplegia, unspecified; M46.28 Osteomyelitis of vertebra, sacral and sacrococcygeal region; I27.82 Chronic pulmonary embolism; I82.509 Chronic embolism and thrombosis of unspecified deep veins of unspecified lower extremity; E86.0 Dehydration; D64.9 Anemia, unspecified; Z87.891 Personal history of nicotine dependence; Z20.822 Contact with and (suspected) exposure to COVID-19; F41.9 Anxiety disorder, unspecified; F51.04 Psychophysiologic insomnia; G89.29 Other chronic pain; I07.1 Rheumatic tricuspid insufficiency; I10 Essential (primary) hypertension; Z86.74 Personal history of sudden cardiac arrest; V89.2XXS Person injured in unspecified motor-vehicle accident, traffic, sequela; L89.522 Pressure ulcer of left ankle, stage 2; L89.892 Pressure ulcer of other site, stage 2; L97.529 Non-pressure chronic ulcer of other part of left foot with unspecified severity; L97.519 Non-pressure chronic ulcer of other part of right foot with unspecified severity; I45.2 Bifascicular block; Z95.3 Presence of xenogenic heart valve; Z79.01 Long term (current) use of anticoagulants; Z79.82 Long term (current) use of aspirin; Z79.899 Other long term (current) drug therapy; Z82.49 Family history of ischemic heart disease and other diseases of the circulatory system; Z93.3 Colostomy status; Z86.14 Personal history of Methicillin resistant Staphylococcus aureus infection; Z98.890 Other specified postprocedural states; Z88.1 Allergy status to other antibiotic agents; Z88.0 Allergy status to penicillin; Z88.2 Allergy status to sulfonamides
CPT/HCPCS: 36415; 71045; 80053; 80061; 83735; 84443; 84484; 85025; 85610; 85730; 87040; 87635; 93005; 96361; 96374; 96375; 99285

== ENCOUNTER 2021-02-08 18:01 | Inpatient (IN) | payer OTHER ==
[2021-02-08] MEDS ORDERED: ADENOSINE 3 MG/ML 2 ML VIAL IVP STA (18:25)
[2021-02-08] MEDS ORDERED: fentaNYL (PF) 50 MCG/ML 2 ML AMP IVP ONE (18:38)
[2021-02-08 18:43] LABS: Anisocytosis Slight; Basophils # (A) 0.1 k/uL (0-0.2); Basophils % (A) 1 %; Eosinophils # (A) 0.2 k/uL (0-0.7); Eosinophils % (A) 2 %; HCT 34.2 % (39.0-53.0); HGB 10.7 gm/dL (13.0-17.5); Lymphocytes % (A) 9 %; MCH 28.1 pg (25.0-35.0); MCHC 31.2 g/dL (31.0-37.0); MCV 90.2 fL (80.0-100.0); Mean Platelet Volume 7.4; Monocytes # (A) 0.5 k/uL (0-1.0); Monocytes % (A) 5 %; Neutrophils % (A) 82 %; Platelet Count 524 k/uL (150-450); RDW 18.7 % (11.5-15.5)
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
[2021-02-08 18:55] LABS: ALT 32 U/L (4-49); AST 38 U/L (17-59); African American GFR (CKD) >90 (>60 ml/min/1.73 sqM); Albumin 3.4 g/dL (3.5-5.0); Anion Gap 13 mmol/L; Blood Urea Nitrogen 33 mg/dL (9-20); Calcium 9.8 mg/dL (8.4-10.2); Carbon Dioxide 22 mmol/L (22-30); Chloride 102 mmol/L (98-107); Creatine Kinase <20 U/L (55-170); Glucose 107 mg/dL (74-99); Magnesium 2.4 mg/dL (1.6-2.3); Non-African American GFR(CKD) >90 (>60 ml/min/1.73 sqM); Potassium 4.8 mmol/L (3.5-5.1); Sodium 137 mmol/L (137-145); Total Bilirubin 0.9 mg/dL (0.2-1.3); Total Protein 7.4 g/dL (6.3-8.2)
[2021-02-08 18:58] LABS: INR 1.6 (<1.2)
[2021-02-08 18:59] LABS: Prothrombin Time 16.4 sec (9.0-12.0)
[2021-02-08 19:04] LABS: Alkaline Phosphatase 1828 U/L (38-126)
[2021-02-08] MEDS ORDERED: METOPROLOL TARTRATE 25 MG TAB PO STA (19:17)
--- NOTE | 2021-02-08 19:34 | XR ---
EXAMINATION TYPE: XR chest 1V portable DATE OF EXAM: 02/08/2021 COMPARISON: Chest radiograph 02/03/2021 HISTORY: Dysrhythmia TECHNIQUE: Single frontal view of the chest is obtained. FINDINGS: Iliac Prosthetic valve. Median sternotomy wires. Hardware overlying the spine similar to prior. Right upper extremity PICC with the catheter tip over the SVC. Cardiomediastinal silhouette and pulmonary vasculature are within normal limits. Lungs are clear IMPRESSION: No acute process.
[2021-02-08] MEDS ORDERED: NALOXONE 0.4 MG/ML 1 ML VIAL IV PRN (21:01)
[2021-02-08] MEDS ORDERED: ALPRAZolam 0.25 MG TAB PO PRN (23:13)
[2021-02-08] MEDS: NYSTATIN 100,000 UNIT/GM POWD 15 GM TOPICAL SCH (23:20)
[2021-02-08] MEDS ORDERED: ONDANSETRON 4 MG/2 ML VIAL IVP PRN (23:21)
[2021-02-08] MEDS: METOPROLOL TARTRATE 25 MG TAB PO SCH (23:22)
[2021-02-08] MEDS ORDERED: diphenhydrAMINE 50 MG/ML 1 ML VIAL IVP PRN (23:24)
[2021-02-08] MEDS ORDERED: SODIUM CHLORIDE 0.9% 500 ML 500 ML IV ONE (23:24)
[2021-02-08] MEDS ORDERED: WARFARIN 2.5 MG TAB PO ONE (23:30)
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
[2021-02-08] MEDS: SODIUM CHLORIDE 0.9% 1,000 ML IV SCH (23:49)
[2021-02-08] MEDS: HYDROcodone/APAP 10-325MG 1 EACH TAB PO PRN (23:50)
[2021-02-09] MEDS ORDERED: CILASTATIN SODIUM IV SCH (08:00)
[2021-02-09] MEDS ORDERED: IMIPENEM IV SCH (08:00)
[2021-02-09] MEDS: METOPROLOL TARTRATE 25 MG TAB PO SCH ×2 (08:05→14:44)
[2021-02-09] MEDS: HYDROcodone/APAP 10-325MG 1 EACH TAB PO PRN (08:05)
[2021-02-09] MEDS: SODIUM CHLORIDE 0.9% 1,000 ML IV SCH (08:06)
[2021-02-09] MEDS: NYSTATIN 100,000 UNIT/GM POWD 15 GM TOPICAL SCH (08:06)
[2021-02-09 08:50] LABS: Anisocytosis Slight; Basophils % (A) 0 %; Eosinophils # (A) 0.3 k/uL (0-0.7); Eosinophils % (A) 3 %; Lymphocytes # (A) 0.7 k/uL (1.0-4.8); Lymphocytes % (A) 9 %; MCHC 30.8 g/dL (31.0-37.0); MCV 90.9 fL (80.0-100.0); Mean Platelet Volume 7.7; Monocytes # (A) 0.4 k/uL (0-1.0); Monocytes % (A) 5 %; Neutrophils # (A) 5.8 k/uL (1.3-7.7); Neutrophils % (A) 80 %; Platelet Count 393 k/uL (150-450); RDW 18.4 % (11.5-15.5); WBC 7.3 k/uL (3.8-10.6)
[2021-02-09] MEDS ORDERED: DOCUSATE 100 MG CAP PO SCH (09:00)
[2021-02-09] MEDS ORDERED: MAGNESIUM OXIDE 400 MG TAB PO SCH (09:00)
[2021-02-09] MEDS ORDERED: COLLAGENASE 250 UNIT/GM OINTMENT 30 GM TUBE TOPICAL SCH (09:00)
[2021-02-09] MEDS ORDERED: DAPTOmycin 500 MG VIAL IV SCH (09:00)
[2021-02-09] MEDS ORDERED: ASPIRIN 81 MG PO SCH (09:00)
[2021-02-09 09:05] LABS: HGB 9.2 gm/dL (13.0-17.5)
[2021-02-09 09:12] LABS: African American GFR (CKD) >90 (>60 ml/min/1.73 sqM); Anion Gap 10 mmol/L; Blood Urea Nitrogen 26 mg/dL (9-20); Calcium 8.7 mg/dL (8.4-10.2); Carbon Dioxide 20 mmol/L (22-30); Chloride 104 mmol/L (98-107); Glucose 83 mg/dL (74-99); INR 1.8 (<1.2); Non-African American GFR(CKD) >90 (>60 ml/min/1.73 sqM); Prothrombin Time 17.4 sec (9.0-12.0); Sodium 134 mmol/L (137-145)
[2021-02-09 09:41] VITALS: RESP 18
[2021-02-09 11:06] VITALS: TEMP 98.1
[2021-02-09] MEDS ORDERED: MEROPENEM 1 GM in SODIUM CHLORIDE 0.9% 100 ML IVPB SCH (12:00)
[2021-02-09] MEDS ORDERED: DAPTOmycin 500 MG in SODIUM CHLORIDE 0.9% 50 ML IVPB SCH (12:00)
[2021-02-09 13:55] VITALS: BMI 23.4
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
[2021-02-09 15:04] VITALS: BP 104/62; PULSE 98
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
[2021-02-09] MEDS ORDERED: WARFARIN 2 MG TAB PO ONE (18:00)
[2021-02-09] MEDS ORDERED: TEMAZEPAM 30 MG CAP PO SCH (21:00)
== END 2021-02-09 15:56 | disposition home or self-care (01) | DRG 308 ==
LOC: EC 18:01 → 3SCARD 21:01
PROVIDERS: ADMIT Internal Medicine; ATTEND Internal Medicine
DX: I47.1 Supraventricular tachycardia (principal); L89.94 Pressure ulcer of unspecified site, stage 4; G82.20 Paraplegia, unspecified; M86.60 Other chronic osteomyelitis, unspecified site; Z16.24 Resistance to multiple antibiotics; D64.9 Anemia, unspecified; Z20.822 Contact with and (suspected) exposure to COVID-19; F17.200 Nicotine dependence, unspecified, uncomplicated; F41.9 Anxiety disorder, unspecified; G47.00 Insomnia, unspecified; I07.1 Rheumatic tricuspid insufficiency; I10 Essential (primary) hypertension; L89.159 Pressure ulcer of sacral region, unspecified stage; Z79.01 Long term (current) use of anticoagulants; Z79.82 Long term (current) use of aspirin; Z79.899 Other long term (current) drug therapy; Z82.49 Family history of ischemic heart disease and other diseases of the circulatory system; Z86.711 Personal history of pulmonary embolism; Z86.718 Personal history of other venous thrombosis and embolism; Z91.19 Patient's noncompliance with other medical treatment and regimen; Z93.3 Colostomy status; Z95.2 Presence of prosthetic heart valve; R74.8 Abnormal levels of other serum enzymes
CPT/HCPCS: 36415; 71045; 80048; 80053; 82550; 83735; 84443; 84484; 85025; 85610; 85730; 87635; 93005; 96374; 96375; 99285

== ENCOUNTER 2021-02-25 18:33 | Inpatient (IN) | payer OTHER ==
[2021-02-25] MEDS ORDERED: ACETAMINOPHEN TAB 500 MG TAB PO STA (19:12)
[2021-02-25] MEDS ORDERED: SODIUM CHLORIDE 0.9% 1,000 ML IV STA (19:12)
[2021-02-25] MEDS ORDERED: MORPHINE SULFATE 4 MG/ML SYRINGE IVP STA (20:02)
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
[2021-02-25 20:38] LABS: Anisocytosis Slight; Basophils % (A) 0 %; Eosinophils # (A) 0.1 k/uL (0-0.7); Eosinophils % (A) 1 %; HCT 25.4 % (39.0-53.0); HGB 8.1 gm/dL (13.0-17.5); Lymphocytes # (A) 0.7 k/uL (1.0-4.8); Lymphocytes % (A) 6 %; MCH 27.9 pg (25.0-35.0); MCHC 31.8 g/dL (31.0-37.0); MCV 87.9 fL (80.0-100.0); Mean Platelet Volume 7.2; Monocytes # (A) 0.5 k/uL (0-1.0); Monocytes % (A) 4 %; Neutrophils # (A) 10.1 k/uL (1.3-7.7); Neutrophils % (A) 88 %; Platelet Count 470 k/uL (150-450); RBC 2.89 m/uL (4.30-5.90); RDW 16.6 % (11.5-15.5); WBC 11.5 k/uL (3.8-10.6)
[2021-02-25 20:48] LABS: ALT 20 U/L (4-49); AST 35 U/L (17-59); African American GFR (CKD) >90 (>60 ml/min/1.73 sqM); Albumin 2.9 g/dL (3.5-5.0); Anion Gap 12 mmol/L; Blood Urea Nitrogen 27 mg/dL (9-20); Calcium 8.4 mg/dL (8.4-10.2); Carbon Dioxide 22 mmol/L (22-30); Chloride 99 mmol/L (98-107); Glucose 120 mg/dL (74-99); Non-African American GFR(CKD) >90 (>60 ml/min/1.73 sqM); Potassium 3.9 mmol/L (3.5-5.1); Sodium 133 mmol/L (137-145); Total Bilirubin 0.7 mg/dL (0.2-1.3); Total Protein 6.8 g/dL (6.3-8.2)
--- NOTE | 2021-02-25 20:49 | XR ---
EXAMINATION TYPE: XR chest 1V portable DATE OF EXAM: 02/25/2021 COMPARISON: NONE HISTORY: Fever TECHNIQUE: Single frontal view of the chest is obtained. FINDINGS: Heart is enlarged there is postoperative change. Coarsened central interstitium. No pleura l effusion or pneumothorax. No consolidation. IMPRESSION: 1. Cardiomegaly correlate for chronic interstitial lung disease. Superimposed mild venous congestion or interstitial pneumonitis in the differential diagnosis..
[2021-02-25 20:52] LABS: Alkaline Phosphatase 1581 U/L (38-126)
[2021-02-25 21:18] LABS: Appearance,Urine Clear (Clear); Bacteria,Urine Many /hpf; Bilirubin,Urine Negative (Negative); Blood,Urine Large (Negative); Color,Urine Yellow; Glucose,Urine (UA) Negative (Negative); Ketones,Urine Negative (Negative); Leukocyte Esterase,Urine Large (Negative); Nitrite,Urine Negative (Negative); PH, Urine 6.5 (5.0-8.0); Protein,Urine 2+ (Negative); RBC,Urine 24 /hpf (0-5); Specific Gravity,Urine 1.012 (1.001-1.035); Urobilinogen,Urine <2.0 mg/dL (<2.0); WBC,Urine 50 /hpf (0-5)
[2021-02-25 21:33] LABS: Erythrocyte Sedimentation Rate >140 mm/hr (0-15)
[2021-02-25] MEDS ORDERED: NALOXONE 0.4 MG/ML 1 ML VIAL IV PRN (22:47)
[2021-02-25] MEDS ORDERED: HYDROcodone/APAP 5-325MG 1 EACH TAB PO PRN (22:47)
[2021-02-25] MEDS ORDERED: ONDANSETRON 4 MG/2 ML VIAL IVP PRN (22:47)
[2021-02-26] MEDS: SODIUM CHLORIDE 0.9% 1,000 ML IV SCH ×4 (00:26→22:48)
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
[2021-02-26] MEDS: AZTREONAM 2 GM in SODIUM CHLORIDE 0.9% 100 ML IVPB SCH ×4 (03:01→22:16)
[2021-02-26 04:35] LABS: INR 1.2 (<1.2); Prothrombin Time 12.2 sec (9.0-12.0)
[2021-02-26] MEDS: MORPHINE SULFATE 4 MG/ML SYRINGE IV PRN ×5 (05:41→21:36)
[2021-02-26] MEDS: ASPIRIN 81 MG PO SCH (09:49)
[2021-02-26] MEDS: METOPROLOL TARTRATE 25 MG TAB PO SCH ×3 (09:50→22:48)
[2021-02-26] MEDS: DOCUSATE 100 MG CAP PO SCH ×2 (09:50→21:37)
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
[2021-02-26] MEDS ORDERED: HYDROcodone/APAP 10-325MG 1 EACH TAB PO PRN (14:04)
[2021-02-26] MEDS: MULTIVITAMINS, THERA 1 EACH TAB PO SCH (15:11)
[2021-02-26] MEDS: MAGNESIUM OXIDE 400 MG TAB PO SCH (15:11)
[2021-02-26] MEDS: COLLAGENASE 250 UNIT/GM OINTMENT 30 GM TUBE TOPICAL SCH (15:12)
[2021-02-26] MEDS: ACETAMINOPHEN TAB 325 MG TAB PO PRN (16:40)
[2021-02-26] MEDS ORDERED: WARFARIN 3 MG TAB PO ONE (18:00)
[2021-02-26] MEDS: ASCORBIC ACID 500 MG TAB PO SCH (21:36)
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
[2021-02-26] MEDS: ALPRAZolam 0.25 MG TAB PO PRN (22:50)
[2021-02-27] MEDS: ZOLPIDEM 5 MG TAB PO SCH ×2 (00:05→21:45)
[2021-02-27] MEDS: HYDROmorphone 0.5 MG/0.5 ML SYRINGE IVP PRN (01:33)
[2021-02-27] MEDS: AZTREONAM 2 GM in SODIUM CHLORIDE 0.9% 100 ML IVPB SCH ×3 (04:04→18:04)
[2021-02-27 06:41] LABS: INR 1.4 (<1.2); Prothrombin Time 13.9 sec (9.0-12.0)
[2021-02-27] MEDS: SODIUM CHLORIDE 0.9% 1,000 ML IV SCH ×3 (07:02→22:50)
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
[2021-02-27] MEDS: DOCUSATE 100 MG CAP PO SCH ×2 (11:48→21:46)
[2021-02-27] MEDS: ASPIRIN 81 MG PO SCH (11:48)
[2021-02-27] MEDS: MAGNESIUM OXIDE 400 MG TAB PO SCH (11:49)
[2021-02-27] MEDS: ASCORBIC ACID 500 MG TAB PO SCH ×2 (11:49→21:42)
[2021-02-27] MEDS: MULTIVITAMINS, THERA 1 EACH TAB PO SCH (11:49)
[2021-02-27] MEDS: COLLAGENASE 250 UNIT/GM OINTMENT 30 GM TUBE TOPICAL SCH (11:50)
[2021-02-27] MEDS: FERROUS SULFATE 325 MG TAB PO SCH (11:50)
[2021-02-27] MEDS: METOPROLOL TARTRATE 25 MG TAB PO SCH ×3 (11:50→21:45)
[2021-02-27] MEDS: MORPHINE SULFATE 4 MG/ML SYRINGE IV PRN ×2 (16:02→19:30)
[2021-02-27] MEDS ORDERED: WARFARIN 2 MG TAB PO ONE (18:00)
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
[2021-02-27] MEDS: ACETAMINOPHEN TAB 325 MG TAB PO PRN (19:30)
[2021-02-28] MEDS: ALPRAZolam 0.25 MG TAB PO PRN ×2 (00:20→08:25)
[2021-02-28] MEDS: HYDROmorphone 0.5 MG/0.5 ML SYRINGE IVP PRN ×3 (00:32→17:47)
[2021-02-28] MEDS: ACETAMINOPHEN TAB 325 MG TAB PO PRN ×3 (02:11→21:08)
[2021-02-28] MEDS: AZTREONAM 2 GM in SODIUM CHLORIDE 0.9% 100 ML IVPB SCH ×3 (02:12→17:42)
[2021-02-28] MEDS: SODIUM CHLORIDE 0.9% 1,000 ML IV SCH ×2 (05:14→14:01)
--- NOTE | 2021-02-28 06:37 | PN ---
PROGRESS NOTE DATE OF SERVICE: February 27, 2021. REASON FOR FOLLOWUP: Fever, UTI/infected sacral pressure ulcer. INTERVAL HISTORY: Patient did spike a fever this morning of 101.2. The patient afebrile since then. The patient denies having any chest pain, shortness of breath or cough. No abdominal pain. No diarrhea. PHYSICAL EXAMINATION: Blood pressure is 115/74 with a pulse of 119, temperature 99.1, T-max is 101.2. He is 100% on room air. General description is a middle-aged male lying in bed in no distress. Respiratory system: Unlabored breathing, decreased intensity of breath sounds. No wheeze. Heart S1, S2. Regular rate and rhythm. Abdomen soft, no tenderness. LAB: INR is 1.4. Blood and urine culture so far negative. DIAGNOSTIC IMPRESSION AND PLAN: Patient admitted to the hospital with fever in this patient who did have significant sacral pressure ulcer, but recently completed a course of IV antibiotic therapy in the form of daptomycin, Meropenem, now with foul smelling sacral wound. The patient likely need surgical debridement and deep cultures require further antibiotic therapy in view of the limited choices we have because of his allergies. We will discuss further with the admitting team. Continue local wound care is ordered along with empiric Azactam. Continue supportive care. MMODL / IJN: [id number] /
[2021-02-28] MEDS: MAGNESIUM OXIDE 400 MG TAB PO SCH (08:04)
[2021-02-28] MEDS: METOPROLOL TARTRATE 25 MG TAB PO SCH ×3 (08:04→21:01)
[2021-02-28] MEDS: ASCORBIC ACID 500 MG TAB PO SCH ×2 (08:05→21:01)
[2021-02-28] MEDS: MULTIVITAMINS, THERA 1 EACH TAB PO SCH (08:05)
[2021-02-28] MEDS: FERROUS SULFATE 325 MG TAB PO SCH (08:05)
[2021-02-28] MEDS: DOCUSATE 100 MG CAP PO SCH ×2 (08:05→21:01)
[2021-02-28] MEDS: ASPIRIN 81 MG PO SCH (08:06)
[2021-02-28] MEDS: MORPHINE SULFATE 4 MG/ML SYRINGE IV PRN ×2 (08:26→21:01)
[2021-02-28] MEDS: COLLAGENASE 250 UNIT/GM OINTMENT 30 GM TUBE TOPICAL SCH (08:32)
[2021-02-28 09:45] LABS: Anisocytosis Slight; Basophils % (A) 0 %; Eosinophils # (A) 0.1 k/uL (0-0.7); Eosinophils % (A) 1 %; HCT 22.5 % (39.0-53.0); HGB 7.2 gm/dL (13.0-17.5); Hypochromasia Slight; Lymphocytes # (A) 0.2 k/uL (1.0-4.8); Lymphocytes % (A) 2 %; MCH 28.5 pg (25.0-35.0); MCHC 32.2 g/dL (31.0-37.0); MCV 88.5 fL (80.0-100.0); Mean Platelet Volume 7.2; Monocytes # (A) 0.2 k/uL (0-1.0); Monocytes % (A) 2 %; Neutrophils % (A) 95 %; Platelet Count 438 k/uL (150-450); RBC 2.54 m/uL (4.30-5.90); RDW 16.6 % (11.5-15.5); WBC 9.5 k/uL (3.8-10.6)
[2021-02-28 09:55] LABS: INR 1.6 (<1.2); Prothrombin Time 16.2 sec (9.0-12.0)
[2021-02-28 10:49] LABS: African American GFR (CKD) >90 (>60 ml/min/1.73 sqM); Anion Gap 9 mmol/L; Blood Urea Nitrogen 17 mg/dL (9-20); Calcium 8.1 mg/dL (8.4-10.2); Carbon Dioxide 14 mmol/L (22-30); Chloride 108 mmol/L (98-107); Glucose 98 mg/dL (74-99); Non-African American GFR(CKD) >90 (>60 ml/min/1.73 sqM); Potassium 3.9 mmol/L (3.5-5.1); Sodium 131 mmol/L (137-145)
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
[2021-02-28 13:30] VITALS: BMI 25.7
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
[2021-02-28] MEDS ORDERED: WARFARIN 3 MG TAB PO SCH (18:00)
[2021-02-28] MEDS: ZOLPIDEM 5 MG TAB PO SCH (21:02)
[2021-03-01] MEDS: SODIUM CHLORIDE 0.9% 1,000 ML IV SCH ×4 (01:00→21:39)
[2021-03-01] MEDS: ALPRAZolam 0.25 MG TAB PO PRN ×2 (01:01→21:37)
[2021-03-01] MEDS: HYDROmorphone 0.5 MG/0.5 ML SYRINGE IVP PRN ×5 (01:01→21:36)
[2021-03-01] MEDS: AZTREONAM 2 GM in SODIUM CHLORIDE 0.9% 100 ML IVPB SCH ×3 (03:21→21:36)
[2021-03-01 06:59] LABS: INR 1.7 (<1.2); Prothrombin Time 17.1 sec (9.0-12.0)
[2021-03-01] MEDS: ASCORBIC ACID 500 MG TAB PO SCH ×2 (07:18→21:38)
[2021-03-01] MEDS: METOPROLOL TARTRATE 25 MG TAB PO SCH ×3 (07:18→21:37)
[2021-03-01] MEDS: MAGNESIUM OXIDE 400 MG TAB PO SCH (07:18)
[2021-03-01] MEDS: MULTIVITAMINS, THERA 1 EACH TAB PO SCH (07:19)
[2021-03-01] MEDS: FERROUS SULFATE 325 MG TAB PO SCH (07:19)
[2021-03-01] MEDS: ASPIRIN 81 MG PO SCH ×2 (07:19→07:24)
[2021-03-01] MEDS: DOCUSATE 100 MG CAP PO SCH ×2 (07:19→21:37)
[2021-03-01] MEDS: ACETAMINOPHEN TAB 325 MG TAB PO PRN (07:28)
--- NOTE | 2021-03-01 14:24 | P.PN ---
Subjective Progress Note Date: 03/01/21 CHIEF COMPLAINT: Fever with chronic decubitus ulcer HISTORY OF PRESENT ILLNESS: Surgical service is following in regards to patient's chronic decubitus ulcer. Patient has no new complaints. Currently afebrile. He is followed by ID and on antibiotics. PHYSICAL EXAM: VITAL SIGNS: Reviewed. GENERAL: Well-developed in no acute distress. HEENT: No sclera icterus. Extraocular movements grossly intact. Moist buccal mucosa. Head is atraumatic, normocephalic. ABDOMEN: Soft. Nondistended. Nontender. NEUROLOGIC: Alert and oriented. Cranial nerves II through XII grossly intact. Skin: Stage IV decubitus sacral ulcer. Ulceration with granulation tissue and large amount of slough thing tissue. With eschar tissue. Purulent discharge that is odorous. Tunneling noted. ASSESSMENT: 1. Chronic stage IV sacral decubitus ulcer PLAN: -Recommend that patient is transferred to [facility] for further management of his sacral decubitus ulcer. [facility] is where patient has had his previous surgeries. -Continue IV antibiotics per ID -Continue local wound care -Continue supportive care -No surgical intervention planned Physician Edging Machine Operator note has been reviewed by physician. Signing provider agrees with the documented findings, assessment, and plan of care. Objective - Vital Signs Vital signs: Vital Signs Temp 99.5 F 03/01/21 08:00 Pulse 33 L 03/01/21 08:00 Resp 32 H 03/01/21 08:00 BP 163/70 03/01/21 08:00 Pulse Ox 98 03/01/21 08:00 Intake & Output 02/28/21 03/01/21 03/01/21 18:59 06:59 18:59 Intake Total 1140 240 Output Total 1000 600 Balance 140 -360 Weight 65.771 kg Intake: Intake, IV Titration 1140 Amount Aztreonam 2 gm In Sodium 100 Chloride 0.9% 100 ml @ 33 .3 mls/hr IVPB Q8H [facility] Rx #:[id number] Sodium Chloride 0.9% 1, 1040 000 ml @ 130 mls/hr IV . Q7H42M [facility] Rx#:[id number] Oral 240 Output: Urine 1000 300 Stool 300 Other: Voiding Method Ileal Conduit (Right) Ileal Conduit (Right) - Labs CBC & Chem 7: 02/28/21 09:01 02/28/21 09:01 Labs: Abnormal Lab Results - Last 24 Hours (Table) 03/01/21 Range/Units 06:20 PT 17.1 H (9.0-12.0) sec INR 1.7 H (<1.2) Microbiology - Last 24 Hours (Table) 02/25/21 20:08 Urine Culture - Final Urine,Voided 02/25/21 20:08 Blood Culture - Preliminary Blood No Growth after 72 hours 02/25/21 19:44 Blood Culture - Preliminary Blood No Growth after 72 hours
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
[2021-03-01] MEDS: COLLAGENASE 250 UNIT/GM OINTMENT 30 GM TUBE TOPICAL SCH (16:06)
[2021-03-01] MEDS: MORPHINE SULFATE 4 MG/ML SYRINGE IV PRN (16:16)
[2021-03-01] MEDS ORDERED: WARFARIN 3 MG TAB PO ONE (18:00)
--- NOTE | 2021-03-01 18:05 | PN ---
PROGRESS NOTE DATE OF SERVICE: 03/01/2021 REASON FOR FOLLOWUP: Fever, question of infected sacral pressure ulcer and UTI. INTERVAL HISTORY: Patient overall fever pattern has improved. No fever last 24 hours. The patient is feeling slightly better, however, is complaining of pain to his sacral wound area. No chest pain, shortness of breath or cough. No abdominal pain or diarrhea. PHYSICAL EXAMINATION: Blood pressure 105/68 with a pulse of 104, temperature 97.9, he is 100% on 2 L nasal cannula. General description is a middle-aged male lying in bed in no distress. Respiratory system unlabored breathing, clear to auscultation anteriorly. Heart S1, S2. Regular rate and rhythm. No tenderness. LABS: Hemoglobin 9.5, creatinine 0.64. DIAGNOSTIC IMPRESSION AND PLAN: Patient admitted to the hospital with fever, concern likely for infected pressure ulcer. Patient to continue with Azactam because of multiple allergies and is waiting for transfer to [facility] for further local care and debridement. Continue supportive care. MMODL / IJN: [id number] /
[2021-03-01] MEDS: ZOLPIDEM 5 MG TAB PO SCH (21:36)
[2021-03-02] MEDS: AZTREONAM 2 GM in SODIUM CHLORIDE 0.9% 100 ML IVPB SCH ×3 (06:12→21:05)
[2021-03-02] MEDS: SODIUM CHLORIDE 0.9% 1,000 ML IV SCH ×3 (06:13→17:38)
[2021-03-02 08:13] LABS: INR 1.7 (<1.2); Prothrombin Time 16.7 sec (9.0-12.0)
[2021-03-02] MEDS: ASCORBIC ACID 500 MG TAB PO SCH ×2 (11:42→21:05)
[2021-03-02] MEDS: MULTIVITAMINS, THERA 1 EACH TAB PO SCH (11:43)
[2021-03-02] MEDS: ASPIRIN 81 MG PO SCH (11:43)
[2021-03-02] MEDS: DOCUSATE 100 MG CAP PO SCH ×2 (11:43→21:04)
[2021-03-02] MEDS: FERROUS SULFATE 325 MG TAB PO SCH (11:43)
[2021-03-02] MEDS: METOPROLOL TARTRATE 25 MG TAB PO SCH ×3 (11:43→21:04)
[2021-03-02] MEDS: MAGNESIUM OXIDE 400 MG TAB PO SCH (11:43)
[2021-03-02] MEDS: HYDROmorphone 0.5 MG/0.5 ML SYRINGE IVP PRN ×3 (12:34→21:04)
[2021-03-02 14:07] LABS: Basophils # (A) 0.01 X 10*3/uL (0.00-0.10); Basophils % (A) 0.2 %; Eosinophils % (A) 1.9 %; Lymphocytes # (A) 0.51 X 10*3/uL (0.90-5.00); Lymphocytes % (A) 9.5 %; Monocytes # (A) 0.39 X 10*3/uL (0.20-1.00); Monocytes % (A) 7.3 %; Neutrophils # (A) 4.28 X 10*3/uL (1.80-7.70); Neutrophils % (A) 79.6 %
[2021-03-02 14:08] LABS: HCT 20.8 % (39.6-50.0); MCHC 28.8 g/dL (32.0-37.0); MCV 93.7 fL (80.0-97.0); Mean Platelet Volume 9.3 fL (9.5-12.2); Platelet Count 340 X 10*3/uL (140-440); RBC 2.22 X 10*6/uL (4.40-5.60); RDW 17.3 % (11.5-14.5); WBC 5.37 X 10*3/uL (4.50-10.00)
--- NOTE | 2021-03-02 14:53 | P.PN ---
Subjective Progress Note Date: 03/02/21 CHIEF COMPLAINT: Complicated sacral decubiti ulcers HISTORY OF PRESENT ILLNESS: The patient is a 45-year-old male with long standing history of sacral decubiti ulcers including multiple plastic procedures. Patient has multiple readmissions due to his decubiti ulcers. All prior surgical care management performed at [facility]. Patient had multiple questions relating to flaps and his prior surgery of Dec 2019 that was done at [facility] including complications following his flap. He has not followed up recently regarding his plastic surgery needs. ROS: No reports of nausea and vomiting. No fevers or chills. No new chest pain. No productive sputum. He is wheelchair bound. PHYSICAL EXAM: VITAL SIGNS: Reviewed CONSTITUTIONAL: Well developed and in no acute distress. EYES: Conjuctivae without sclera icterus. Extraocular movements grossly intact. HEAD, EARS, NOSE, THROAT: Moist buccal mucosa. Head is atraumatic, normocephalic. Hears conversational speech. No nasal drainage. RESPIRATORY: Non-labored respirations and equal bilateral excursions. CARDIOVASCULAR: Palpable 2+ radial pulses. Regular rate. Regular rhythm. ABDOMEN: No peritonitis : [place]o present MUSCULOSKELETAL: No clubbing. No cyanosis. SKIN: Dressing intact along the sacrum. NEUROLOGIC: Cranial nerves II through XII grossly intact. No focal or lateralizing signs. PSYCH: Appropriate affect. Alert and oriented to person, place and time. CLINICAL LABS: White blood cell count normal at 9.5. Hemoglobin 7.2 with anemia ASSESSMENT: 1. Chronic decubiti ulcer, stage IV 2. Anemia 3. Complicated wounds PLAN: 1. Recommend continued care at [facility] due to complicated sacral decubiti ulcers with flaps 2. I discussed with him over 30 minutes where complicated wound and wound care may need additional flaps and plastic surgery care which are not available at this institution 3. Recommend increase protein intake to 70+ grams daily. 4. All questions addressed. Recommend management at tertiary care institution where he is established at [facility]. Objective - Vital Signs Vital signs: Vital Signs Temp 98.4 F 03/02/21 01:53 Pulse 108 H 03/02/21 01:53 Resp 19 03/02/21 01:53 BP 103/63 03/02/21 01:53 Pulse Ox 95 03/02/21 01:53 Intake & Output 03/01/21 03/02/21 03/02/21 18:59 06:59 18:59 Intake Total 680 Output Total 600 2250 Balance -600 -1570 Intake: Intake, IV Titration 200 Amount Aztreonam 2 gm In Sodium 200 Chloride 0.9% 100 ml @ 33 .3 mls/hr IVPB Q8H [facility] Rx #:[id number] Oral 480 Output: Urine 1050 Stool 600 1200 Other: Voiding Method Ileal Conduit (Right) Ileal Conduit (Right) Ileal Conduit (Right) - Labs CBC & Chem 7: 03/02/21 07:27 02/28/21 09:01 Labs: Abnormal Lab Results - Last 24 Hours (Table) 03/02/21 Range/Units 07:27 PT 16.7 H (9.0-12.0) sec INR 1.7 H (<1.2) Microbiology - Last 24 Hours (Table) 02/25/21 19:44 Blood Culture - Preliminary Blood No Growth after 96 hours 02/25/21 20:08 Blood Culture - Preliminary Blood No Growth after 96 hours Assessment and Plan (1) Decubitus ulcer Current Visit: Yes Status: Acute Code(s): L89.90 - PRESSURE ULCER OF UNSPECIFIED SITE, UNSPECIFIED STAGE SNOMED Code(s): 504337548 (2) Anemia Current Visit: No Status: Acute Code(s): D64.9 - ANEMIA, UNSPECIFIED SNOMED Code(s): 139274987 (3) Sacral osteomyelitis Current Visit: No Status: Acute Code(s): M46.28 - OSTEOMYELITIS OF VERTEBRA, SACRAL AND SACROCOCCYGEAL REGION SNOMED Code(s): 816469854 (4) Stage IV pressure ulcer of sacral region Current Visit: No Status: Acute Code(s): L89.154 - PRESSURE ULCER OF SACRAL REGION, STAGE 4 SNOMED Code(s): 159238719
[2021-03-02] MEDS: COLLAGENASE 250 UNIT/GM OINTMENT 30 GM TUBE TOPICAL SCH (15:21)
[2021-03-02] MEDS: MORPHINE SULFATE 4 MG/ML SYRINGE IV PRN (15:26)
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
--- NOTE | 2021-03-02 17:57 | PN ---
PROGRESS NOTE DATE OF SERVICE: 03/02/2021 REASON FOR FOLLOWUP: Fever, possibly infected sacral pressure ulcer/UTI. INTERVAL HISTORY: The patient is afebrile this morning. He did have a low-grade fever of 100.7 last night. He is feeling slightly better, breathing comfortably. Denies any chest pain, shortness of breath or cough. No pain to the sacral wound area or any diarrhea. PHYSICAL EXAMINATION: Blood pressure 109/73 with a pulse of 115, temperature 97.8. He is 100% on 2 L nasal cannula. General description is a middle-aged male lying in bed in no distress. RESPIRATORY SYSTEM: Unlabored breathing. Clear to auscultation anteriorly. HEART: S1, S2. Regular rate and rhythm. ABDOMEN: Soft. No tenderness. EXTREMITIES: No edema of the feet. LABS: Hemoglobin is 6, white count 5.67. INR is 1. DIAGNOSTIC IMPRESSION AND PLAN: Patient with a fever, concerning for an infected sacral pressure ulcer in this patient who did have a stage IV sacral pressure ulcer, and the patient did have multiple episodes of osteomyelitis with MULTIPLE ANTIBIOTIC ALLERGIES. Admitted to hospital with another episode of osteomyelitis. The patient has MULTIPLE ANTIBIOTIC ALLERGIES. However, the patient seems to be clinically responding to Azactam; to continue. Possible transfer to [facility] for further care. Continue supportive care. MMODL / IJN: [id number] /
[2021-03-02] MEDS ORDERED: WARFARIN 3 MG TAB PO ONE (18:00)
[2021-03-02] MEDS: ZOLPIDEM 5 MG TAB PO SCH (21:04)
[2021-03-02] MEDS: ALPRAZolam 0.25 MG TAB PO PRN (21:04)
[2021-03-03] MEDS: SODIUM CHLORIDE 0.9% 1,000 ML IV SCH ×3 (00:09→17:59)
[2021-03-03] MEDS: HYDROmorphone 0.5 MG/0.5 ML SYRINGE IVP PRN ×6 (01:55→22:32)
[2021-03-03] MEDS: AZTREONAM 2 GM in SODIUM CHLORIDE 0.9% 100 ML IVPB SCH ×3 (05:00→22:31)
[2021-03-03 06:58] LABS: INR 1.7 (<1.2); Prothrombin Time 16.6 sec (9.0-12.0)
[2021-03-03] MEDS: FERROUS SULFATE 325 MG TAB PO SCH (08:54)
[2021-03-03] MEDS: DOCUSATE 100 MG CAP PO SCH ×2 (08:54→22:32)
[2021-03-03] MEDS: ASPIRIN 81 MG PO SCH (08:54)
[2021-03-03] MEDS: MAGNESIUM OXIDE 400 MG TAB PO SCH (08:54)
[2021-03-03] MEDS: MULTIVITAMINS, THERA 1 EACH TAB PO SCH (08:54)
[2021-03-03] MEDS: ASCORBIC ACID 500 MG TAB PO SCH ×2 (08:54→22:32)
[2021-03-03] MEDS: METOPROLOL TARTRATE 25 MG TAB PO SCH ×3 (08:54→22:32)
--- NOTE | 2021-03-03 10:49 | P.PN ---
Subjective Progress Note Date: 03/03/21 CHIEF COMPLAINT: Complicated sacral decubiti ulcers HISTORY OF PRESENT ILLNESS: The patient is a 45-year-old male with long standing history of sacral decubiti ulcers including multiple plastic procedures. Patient has multiple readmissions due to his decubiti ulcers. All prior surgical care management performed at [facility]. He had acute anemia Hgb 6.0. ROS: No reports of nausea and vomiting. No new chest pain. No productive sputum. He is wheelchair bound. PHYSICAL EXAM: VITAL SIGNS: Reviewed CONSTITUTIONAL: Well developed and in no acute distress. EYES: Conjuctivae without sclera icterus. Extraocular movements grossly intact. HEAD, EARS, NOSE, THROAT: Moist buccal mucosa. Head is atraumatic, normocephalic. Hears conversational speech. No nasal drainage. RESPIRATORY: Non-labored respirations and equal bilateral excursions. CARDIOVASCULAR: Palpable 2+ radial pulses. ABDOMEN: No peritonitis : [place]o present MUSCULOSKELETAL: No clubbing. No cyanosis. SKIN: Dressing intact along the sacrum. NEUROLOGIC: Cranial nerves II through XII grossly intact. No focal or lateralizing signs. PSYCH: Appropriate affect. Alert and oriented to person, place and time. CLINICAL LABS: White blood cell count normal at 9.5. Hemoglobin 7.2 with anemia now 6.0. ASSESSMENT: 1. Chronic decubiti ulcer, stage IV 2. Anemia 3. Complicated wounds PLAN: 1. Recommend transfer and continued care at [facility] due to complicated sacral decubiti ulcers with flaps 2. Transfusion for symptomatic anemia. Objective - Vital Signs Vital signs: Vital Signs Temp 97.5 F L 03/03/21 08:00 Pulse 105 H 03/03/21 08:00 Resp 18 03/03/21 08:00 BP 114/77 03/03/21 08:00 Pulse Ox 100 03/03/21 08:00 Intake & Output 03/02/21 03/03/21 03/03/21 18:59 06:59 18:59 Intake Total 0 1880 Output Total 500 1500 Balance -500 380 Intake: Intake, IV Titration 200 Amount Aztreonam 2 gm In Sodium 200 Chloride 0.9% 100 ml @ 33 .3 mls/hr IVPB Q8H [facility] Rx #:[id number] Oral 960 Blood Product 0 620 Rc As-1 Unit 0 310 [id number] Other 100 Rc As-1 Unit 100 [id number] Output: Urine 500 750 Stool 750 Other: Voiding Method Ileal Conduit (Right) Ileal Conduit (Right) - Labs CBC & Chem 7: 03/02/21 07:27 02/28/21 09:01 Labs: Abnormal Lab Results - Last 24 Hours (Table) 03/02/21 03/02/21 03/03/21 Range/Units 07:27 16:06 06:23 RBC 2.22 L (4.40-5.60) X 10*6/uL Hgb 6.0 L* (13.0-17.0) g/dL Hct 20.8 L (39.6-50.0) % MCHC 28.8 L (32.0-37.0) g/dL RDW 17.3 H (11.5-14.5) % MPV 9.3 L (9.5-12.2) fL Immature Gran # 0.08 H (0.00-0.04) X 10*3/uL Lymphocytes # 0.51 L (0.90-5.00) X 10*3/uL PT 16.6 H (9.0-12.0) sec INR 1.7 H (<1.2) Crossmatch See Detail Microbiology - Last 24 Hours (Table) 02/25/21 19:44 Blood Culture - Preliminary Blood No Growth after 120 hours 02/25/21 20:08 Blood Culture - Preliminary Blood No Growth after 120 hours Assessment and Plan (1) Decubitus ulcer Current Visit: Yes Status: Acute Code(s): L89.90 - PRESSURE ULCER OF UNSPECIFIED SITE, UNSPECIFIED STAGE SNOMED Code(s): 512877566 (2) Anemia Current Visit: No Status: Acute Code(s): D64.9 - ANEMIA, UNSPECIFIED SNOMED Code(s): 390143800 (3) Sacral osteomyelitis Current Visit: No Status: Acute Code(s): M46.28 - OSTEOMYELITIS OF VERTEBRA, SACRAL AND SACROCOCCYGEAL REGION SNOMED Code(s): 238970593 (4) Stage IV pressure ulcer of sacral region Current Visit: No Status: Acute Code(s): L89.154 - PRESSURE ULCER OF SACRAL REGION, STAGE 4 SNOMED Code(s): 849687423
[2021-03-03 12:44] LABS: Anisocytosis Slight; HGB 8.2 gm/dL (13.0-17.5); Hypochromasia Marked; MCH 27.8 pg (25.0-35.0); MCHC 29.3 g/dL (31.0-37.0); Mean Platelet Volume 8.7; Platelet Count 427 k/uL (150-450); Poikilocytosis Slight; RBC 2.95 m/uL (4.30-5.90); RDW 17.1 % (11.5-15.5); WBC 7.3 k/uL (3.8-10.6)
[2021-03-03 12:46] LABS: MCV 94.9 fL (80.0-100.0)
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
[2021-03-03] MEDS: COLLAGENASE 250 UNIT/GM OINTMENT 30 GM TUBE TOPICAL SCH (17:56)
[2021-03-03] MEDS ORDERED: WARFARIN 3 MG TAB PO ONE (18:00)
[2021-03-03] MEDS: ACETAMINOPHEN TAB 325 MG TAB PO PRN (22:31)
[2021-03-03] MEDS: ALPRAZolam 0.25 MG TAB PO PRN (22:32)
[2021-03-03] MEDS: ZOLPIDEM 5 MG TAB PO SCH (22:32)
--- NOTE | 2021-03-03 23:32 | PN ---
PROGRESS NOTE DATE OF SERVICE: 03/03/2021 REASON FOR FOLLOWUP: Fever, likely infected sacral pressure ulcer. INTERVAL HISTORY: Patient has been afebrile. No fever for the last 24 hours. The patient is feeling slightly better. Mentioned slightly frustrated for being there. Patient has been accepted at [facility], currently waiting for the bed. No chest pain, shortness of breath or cough. No abdominal pain or diarrhea. PHYSICAL EXAMINATION: Blood pressure 113/68, pulse of 93, temperature of 97, he is 98% on room air. General description is a middle-aged male lying in bed in no distress. Respiratory system: Unlabored breathing, clear to auscultation anteriorly. Heart S1, S2. Regular rate and rhythm. Abdomen soft, no tenderness. LABS: Hemoglobin is 8.8, white count 7.3. INR is 1.7 creatinine 0.64. DIAGNOSTIC IMPRESSION AND PLAN: Patient admitted to the hospital with fever, foul smelling drainage from the sacral wound concerning for sacral osteomyelitis. Unfortunately no surgical debridement or culture could be obtained. The patient has been treated empirically with Azactam as the patient did have multiple antibiotic allergies. To continue. The patient has been insisting on discharge if he does not get transferred by Thursday so he can go for his port appointment. If that is the case, may get arrangement for the midline and IV course of IV Azactam. The patient could be seen at [facility] on Thursday and clinically think the patient needs to have debridement of the wound deep cultures and antibiotic on the basis of those cultures. Continue supportive care. MMODL / IJN: [id number] /
[2021-03-04] MEDS: SODIUM CHLORIDE 0.9% 1,000 ML IV SCH ×3 (01:14→15:49)
[2021-03-04] MEDS: AZTREONAM 2 GM in SODIUM CHLORIDE 0.9% 100 ML IVPB SCH ×2 (03:01→11:24)
[2021-03-04] MEDS: HYDROmorphone 0.5 MG/0.5 ML SYRINGE IVP PRN ×4 (03:03→15:14)
[2021-03-04 07:01] LABS: INR 1.5 (<1.2); Prothrombin Time 14.9 sec (9.0-12.0)
[2021-03-04 07:09] VITALS: BP 125/69; PULSE 84; TEMP 97.7
[2021-03-04] MEDS: DOCUSATE 100 MG CAP PO SCH (09:28)
[2021-03-04] MEDS: FERROUS SULFATE 325 MG TAB PO SCH (09:28)
[2021-03-04] MEDS: ASPIRIN 81 MG PO SCH (09:28)
[2021-03-04] MEDS: MULTIVITAMINS, THERA 1 EACH TAB PO SCH (09:28)
[2021-03-04] MEDS: METOPROLOL TARTRATE 25 MG TAB PO SCH ×2 (09:28→15:45)
[2021-03-04] MEDS: ASCORBIC ACID 500 MG TAB PO SCH (09:28)
[2021-03-04] MEDS: MAGNESIUM OXIDE 400 MG TAB PO SCH (09:28)
[2021-03-04 11:14] VITALS: RESP 20
--- NOTE | 2021-03-04 11:17 | P.PN ---
Subjective Progress Note Date: 03/04/21 CHIEF COMPLAINT: Fever with chronic decubitus ulcer HISTORY OF PRESENT ILLNESS: Surgical service is following in regards to patient's chronic decubitus ulcer. Patient has no new complaints. Currently afebrile. WBC 7.3 hemoglobin 8.2 from yesterday. He is followed by ID and on antibiotics. Patient is awaiting a bed at [facility] PHYSICAL EXAM: VITAL SIGNS: Reviewed. GENERAL: Well-developed in no acute distress. HEENT: No sclera icterus. Extraocular movements grossly intact. Moist buccal mucosa. Head is atraumatic, normocephalic. ABDOMEN: Soft. Nondistended. Nontender. NEUROLOGIC: Alert and oriented. Cranial nerves II through XII grossly intact. Skin: Stage IV decubitus sacral ulcer. Ulceration with granulation tissue and large amount of slough thing tissue. With eschar tissue. Purulent discharge that is odorous. Tunneling noted. ASSESSMENT: 1. Chronic stage IV sacral decubitus ulcer 2. Anemia requiring blood transfusion during this admission PLAN: -Patient is awaiting transfer to [facility] when bed is available -Continue IV antibiotics per ID -Continue local wound care -Continue supportive care -No surgical intervention planned Physician Director Of Occupational Therapy note has been reviewed by physician. Signing provider agrees with the documented findings, assessment, and plan of care. Objective - Vital Signs Vital signs: Vital Signs Temp 97.7 F 03/04/21 07:08 Pulse 84 03/04/21 07:08 Resp 19 03/04/21 07:08 BP 125/69 03/04/21 07:08 Pulse Ox 100 03/04/21 07:08 Intake & Output 03/03/21 03/04/21 03/04/21 18:59 06:59 18:59 Intake Total 960 Output Total 925 1110 Balance -925 -150 Intake: Oral 960 Output: Urine 800 1110 Stool 125 Other: Voiding Method Ileal Conduit (Right) - Labs CBC & Chem 7: 03/03/21 06:23 02/28/21 09:01 Labs: Abnormal Lab Results - Last 24 Hours (Table) 03/03/21 03/04/21 Range/Units 06:23 06:26 RBC 2.95 L (4.30-5.90) m/uL Hgb 8.2 L (13.0-17.5) gm/dL Hct 28.0 L (39.0-53.0) % MCHC 29.3 L (31.0-37.0) g/dL RDW 17.1 H (11.5-15.5) % PT 14.9 H (9.0-12.0) sec INR 1.5 H (<1.2) Microbiology - Last 24 Hours (Table) 02/25/21 19:44 Blood Culture - Final Blood No Growth after 144 hours 02/25/21 20:08 Blood Culture - Final Blood No Growth after 144 hours
[2021-03-04] MEDS: COLLAGENASE 250 UNIT/GM OINTMENT 30 GM TUBE TOPICAL SCH (11:35)
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
--- NOTE | 2021-03-04 17:59 | PN ---
PROGRESS NOTE DATE OF SERVICE: 03/04/2021 REASON FOR FOLLOWUP VISIT: Fever, likely infected sacral pressure ulcer. INTERVAL HISTORY: Patient is afebrile. The patient is currently waiting for transfer to [facility] for local wound care and antibiotic therapy. The patient denies having any chest pain. No shortness of breath or cough. No abdominal pain. PHYSICAL EXAMINATION: Blood pressure 125/67, pulse of 84, temperature 97.7. He is 100% on 2 L nasal cannula. General description is a middle-aged male lying in bed in no distress. Respiratory system: Unlabored breathing, clear to auscultation anteriorly. Heart S1, S2. Regular rate and rhythm. Abdomen soft, no tenderness. LABS: INR is 1.5. [place] PCR is negative. DIAGNOSTIC IMPRESSION AND PLAN: Patient with fever, source likely infected sacral pressure ulcer, stage IV. Unfortunately no I&D could be done here. Possible transfer to [facility] for debridement of the wound deep culture and antibiotic based on those cultures. Continue empiric Azactam. Continue supportive care. MMODL / IJN: [id number] /
[2021-03-04] MEDS ORDERED: WARFARIN 3 MG TAB PO ONE (18:00)
== END 2021-03-04 17:00 | disposition short-term general hospital (02) | DRG 871 ==
LOC: EC 18:33 → 4SSUR 23:22
PROVIDERS: ADMIT Hospitalist; ATTEND Hospitalist
PROC: 05HF33Z Insertion of Infusion Device into Left Cephalic Vein, Percutaneous Approach (ICD-10-PCS; principal; 2021-03-01 07:30)
DX: A41.9 Sepsis, unspecified organism (principal); L89.154 Pressure ulcer of sacral region, stage 4; G82.20 Paraplegia, unspecified; M46.28 Osteomyelitis of vertebra, sacral and sacrococcygeal region; L97.322 Non-pressure chronic ulcer of left ankle with fat layer exposed; N39.0 Urinary tract infection, site not specified; I82.509 Chronic embolism and thrombosis of unspecified deep veins of unspecified lower extremity; I27.82 Chronic pulmonary embolism; D64.9 Anemia, unspecified; F17.210 Nicotine dependence, cigarettes, uncomplicated; F41.9 Anxiety disorder, unspecified; F51.04 Psychophysiologic insomnia; I10 Essential (primary) hypertension; L97.522 Non-pressure chronic ulcer of other part of left foot with fat layer exposed; L97.511 Non-pressure chronic ulcer of other part of right foot limited to breakdown of skin; V89.2XXS Person injured in unspecified motor-vehicle accident, traffic, sequela; Z20.822 Contact with and (suspected) exposure to COVID-19; Z79.01 Long term (current) use of anticoagulants; Z79.82 Long term (current) use of aspirin; Z79.899 Other long term (current) drug therapy; Z95.3 Presence of xenogenic heart valve; Z93.59 Other cystostomy status; B37.2 Candidiasis of skin and nail; Z86.74 Personal history of sudden cardiac arrest; Z82.49 Family history of ischemic heart disease and other diseases of the circulatory system; Z86.14 Personal history of Methicillin resistant Staphylococcus aureus infection; Z88.1 Allergy status to other antibiotic agents; Z93.3 Colostomy status; Z99.3 Dependence on wheelchair; Z98.890 Other specified postprocedural states; Z88.0 Allergy status to penicillin; Z88.2 Allergy status to sulfonamides; Z88.8 Allergy status to other drugs, medicaments and biological substances; Z86.19 Personal history of other infectious and parasitic diseases
CPT/HCPCS: 36410; 36415; 71045; 76937; 80048; 80053; 81001; 83605; 85025; 85027; 85610; 85652; 86140; 86850; 86900; 86901; 86920; 87040; 87086; 87635; 93005; 94760; 96361; 96374; 99285

== ENCOUNTER 2021-03-15 17:03 | Inpatient (IN) | payer OTHER ==
[2021-03-15] MEDS ORDERED: SODIUM CHLORIDE 0.9% 1,000 ML IV ONE (19:24)
[2021-03-15] MEDS ORDERED: HYDROmorphone 0.5 MG/0.5 ML SYRINGE IVP STA (19:24)
[2021-03-15] MEDS ORDERED: ONDANSETRON 4 MG/2 ML VIAL IVP STA (19:24)
[2021-03-15 20:04] LABS: Anisocytosis Slight; Basophils # (A) 0.1 k/uL (0-0.2); Basophils % (A) 1 %; Eosinophils # (A) 0.2 k/uL (0-0.7); Eosinophils % (A) 2 %; HCT 34.2 % (39.0-53.0); HGB 11.1 gm/dL (13.0-17.5); Lymphocytes # (A) 0.9 k/uL (1.0-4.8); Lymphocytes % (A) 9 %; MCH 28.4 pg (25.0-35.0); MCHC 32.4 g/dL (31.0-37.0); Mean Platelet Volume 7.1; Monocytes # (A) 0.3 k/uL (0-1.0); Monocytes % (A) 3 %; Neutrophils # (A) 8.5 k/uL (1.3-7.7); Neutrophils % (A) 85 %; Platelet Count 490 k/uL (150-450); RDW 18.3 % (11.5-15.5)
[2021-03-15 20:05] LABS: MCV 87.7 fL (80.0-100.0)
[2021-03-15 20:06] LABS: INR 1.1 (<1.2); Partial Thromboplastin Time 40.2 sec (22.0-30.0); Prothrombin Time 11.4 sec (9.0-12.0)
[2021-03-15 20:28] LABS: ALT 22 U/L (4-49); AST 37 U/L (17-59); African American GFR (CKD) >90 (>60 ml/min/1.73 sqM); Anion Gap 12 mmol/L; Blood Urea Nitrogen 24 mg/dL (9-20); Calcium 8.7 mg/dL (8.4-10.2); Carbon Dioxide 17 mmol/L (22-30); Chloride 105 mmol/L (98-107); Glucose 100 mg/dL (74-99); Non-African American GFR(CKD) >90 (>60 ml/min/1.73 sqM); Potassium 4.2 mmol/L (3.5-5.1); Sodium 134 mmol/L (137-145); Total Bilirubin 0.7 mg/dL (0.2-1.3); Total Protein 7.2 g/dL (6.3-8.2)
[2021-03-15 20:35] LABS: Alkaline Phosphatase 1570 U/L (38-126)
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
[2021-03-15] MEDS ORDERED: ADENOSINE 3 MG/ML 2 ML VIAL IVP STA (21:08)
[2021-03-15] MEDS ORDERED: MIDAZOLAM 1 MG/ML 5 ML VIAL IV STA (21:14)
[2021-03-15] MEDS: ADENOSINE 3 MG/ML 2 ML VIAL IVP STA ×2 (21:14→22:25)
[2021-03-15] MEDS ORDERED: NALOXONE 0.4 MG/ML 1 ML VIAL IV PRN (22:52)
[2021-03-15] MEDS ORDERED: BACITRACIN OINT 1 EACH PACKET TOPICAL ONE (22:56)
[2021-03-15] MEDS: SODIUM CHLORIDE 0.9% 1,000 ML IV SCH (23:23)
[2021-03-16] MEDS ORDERED: SODIUM CHLORIDE 0.9% 500 ML 500 ML IV ONE (01:00)
[2021-03-16 01:50] LABS: Anisocytosis Slight; HCT 23.4 % (39.0-53.0); Hypochromasia Slight; MCH 28.1 pg (25.0-35.0); MCHC 31.2 g/dL (31.0-37.0); MCV 89.9 fL (80.0-100.0); Platelet Count 464 k/uL (150-450); RDW 17.8 % (11.5-15.5); WBC 7.4 k/uL (3.8-10.6)
[2021-03-16] MEDS: HYDROmorphone 0.5 MG/0.5 ML SYRINGE IVP PRN ×3 (01:51→08:35)
[2021-03-16 01:52] LABS: HGB 7.3 gm/dL (13.0-17.5)
[2021-03-16 04:00] VITALS: RESP 16
[2021-03-16 10:33] LABS: Anisocytosis Slight; HCT 25.5 % (39.0-53.0); HGB 7.8 gm/dL (13.0-17.5); Hypochromasia Slight; MCH 28.3 pg (25.0-35.0); MCHC 30.8 g/dL (31.0-37.0); MCV 91.7 fL (80.0-100.0); Mean Platelet Volume 6.9; Platelet Count 442 k/uL (150-450); RBC 2.78 m/uL (4.30-5.90); RDW 17.3 % (11.5-15.5); WBC 7.9 k/uL (3.8-10.6)
[2021-03-16] MEDS ORDERED: ALPRAZolam 0.25 MG TAB PO PRN (11:13)
[2021-03-16] MEDS ORDERED: DAPTOMYCIN 500 MG IVPB SCH (11:15)
[2021-03-16] MEDS ORDERED: METOPROLOL TARTRATE 25 MG TAB PO SCH (11:15)
[2021-03-16] MEDS ORDERED: ERTAPENEM 1 GM VIAL IVPB SCH (11:15)
[2021-03-16 13:42] VITALS: BMI 22.3
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
[2021-03-16] MEDS ORDERED: diphenhydrAMINE 50 MG/ML 1 ML VIAL IVP STA (15:22)
[2021-03-16] MEDS: ERTAPENEM 1 GM in SODIUM CHLORIDE 0.9% 50 ML IVPB SCH (16:07)
[2021-03-16] MEDS: DAPTOmycin 500 MG in SODIUM CHLORIDE 0.9% 50 ML IVPB SCH (16:07)
[2021-03-16] MEDS: FUROSEMIDE 80 MG TAB PO SCH (16:08)
[2021-03-16] MEDS: ASCORBIC ACID 500 MG TAB PO SCH ×2 (16:08→20:36)
[2021-03-16] MEDS: DOCUSATE 100 MG CAP PO SCH ×2 (16:13→20:37)
[2021-03-16] MEDS: ASPIRIN 81 MG PO SCH (16:13)
[2021-03-16] MEDS: METOPROLOL TARTRATE 25 MG TAB PO SCH ×2 (16:18→20:37)
[2021-03-16] MEDS: SODIUM CHLORIDE 0.9% 1,000 ML IV SCH (16:18)
[2021-03-16] MEDS ORDERED: TEMAZEPAM 15 MG CAP PO SCH (21:00)
[2021-03-17 02:39] LABS: Anisocytosis Slight; HCT 27.8 % (39.0-53.0); HGB 8.8 gm/dL (13.0-17.5); Hypochromasia Slight; MCH 29.1 pg (25.0-35.0); MCHC 31.8 g/dL (31.0-37.0); MCV 91.5 fL (80.0-100.0); Mean Platelet Volume 7.3; Platelet Count 452 k/uL (150-450); Poikilocytosis Slight; RBC 3.04 m/uL (4.30-5.90); RDW 17.4 % (11.5-15.5); WBC 7.4 k/uL (3.8-10.6)
[2021-03-17 08:18] VITALS: TEMP 98.9
[2021-03-17] MEDS: FUROSEMIDE 80 MG TAB PO SCH (08:18)
[2021-03-17] MEDS: ASCORBIC ACID 500 MG TAB PO SCH (08:18)
[2021-03-17] MEDS: ASPIRIN 81 MG PO SCH (08:18)
[2021-03-17] MEDS: METOPROLOL TARTRATE 25 MG TAB PO SCH (08:18)
[2021-03-17] MEDS: DOCUSATE 100 MG CAP PO SCH (08:19)
[2021-03-17] MEDS ORDERED: MAGNESIUM OXIDE 400 MG TAB PO SCH (09:00)
[2021-03-17] MEDS ORDERED: MULTIVITAMINS, THERA 1 EACH TAB PO SCH (09:00)
[2021-03-17] MEDS ORDERED: FERROUS SULFATE 325 MG TAB PO SCH (09:00)
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
[2021-03-17] MEDS: DAPTOmycin 500 MG in SODIUM CHLORIDE 0.9% 50 ML IVPB SCH (12:28)
[2021-03-17 12:36] VITALS: BP 103/66; PULSE 89
[2021-03-17] MEDS ORDERED: diphenhydrAMINE 50 MG/ML 1 ML VIAL IVP SCH (13:00)
[2021-03-17] MEDS: ERTAPENEM 1 GM in SODIUM CHLORIDE 0.9% 50 ML IVPB SCH (13:11)
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
== END 2021-03-17 16:11 | disposition home or self-care (01) | DRG 308 ==
LOC: EC 17:03 → 3SCARD 23:40
PROVIDERS: ADMIT Hospitalist; ATTEND Hospitalist
DX: I47.1 Supraventricular tachycardia (principal); L89.154 Pressure ulcer of sacral region, stage 4; G82.20 Paraplegia, unspecified; M46.28 Osteomyelitis of vertebra, sacral and sacrococcygeal region; Z16.24 Resistance to multiple antibiotics; I82.509 Chronic embolism and thrombosis of unspecified deep veins of unspecified lower extremity; I27.82 Chronic pulmonary embolism; Z20.822 Contact with and (suspected) exposure to COVID-19; F51.04 Psychophysiologic insomnia; I07.1 Rheumatic tricuspid insufficiency; I10 Essential (primary) hypertension; Z79.01 Long term (current) use of anticoagulants; Z79.82 Long term (current) use of aspirin; Z79.899 Other long term (current) drug therapy; Z82.49 Family history of ischemic heart disease and other diseases of the circulatory system; Z86.711 Personal history of pulmonary embolism; Z86.718 Personal history of other venous thrombosis and embolism; Z86.74 Personal history of sudden cardiac arrest; Z93.3 Colostomy status; Z95.2 Presence of prosthetic heart valve; Z93.6 Other artificial openings of urinary tract status; F17.210 Nicotine dependence, cigarettes, uncomplicated; R53.81 Other malaise; L89.309 Pressure ulcer of unspecified buttock, unspecified stage; F41.8 Other specified anxiety disorders
CPT/HCPCS: 36415; 80053; 85025; 85027; 85610; 85730; 86850; 86900; 86901; 86920; 87635; 93005; 96361; 96374; 96375; 99285

== ENCOUNTER 2021-03-31 21:37 | Emergency (ER) | payer OTHER ==
[2021-03-31 21:45] VITALS: BP 100/62; PULSE 104; RESP 16; TEMP 98.4
[2021-03-31] MEDS ORDERED: diazePAM 5 MG TAB PO STA (23:06)
[2021-03-31] MEDS ORDERED: HYDROmorphone 1 MG/ML 1 ML SYRINGE IM STA (23:06)
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
== END 2021-04-01 02:43 | disposition home or self-care (01) ==
LOC: EC 21:37
DX: R53.1 Weakness (principal); I10 Essential (primary) hypertension; F17.200 Nicotine dependence, unspecified, uncomplicated; F12.90 Cannabis use, unspecified, uncomplicated; Z79.01 Long term (current) use of anticoagulants; Z79.82 Long term (current) use of aspirin; Z88.1 Allergy status to other antibiotic agents; Z88.2 Allergy status to sulfonamides; Z88.8 Allergy status to other drugs, medicaments and biological substances
CPT/HCPCS: 99284; 96372; J1170

== ENCOUNTER 2021-04-20 19:35 | Emergency (ER) | payer OTHER ==
[2021-04-20 19:45] VITALS: RESP 16
[2021-04-20] MEDS ORDERED: HYDROcodone/APAP 5-325MG 1 EACH TAB PO STA (20:04)
[2021-04-20 21:55] VITALS: TEMP 100.1
--- NOTE | 2021-04-20 21:57 | XR ---
EXAMINATION TYPE: XR tibia fibula LT DATE OF EXAM: 04/20/2021 COMPARISON: NONE HISTORY: Pain TECHNIQUE: 2 views FINDINGS: There is osteoarthritis at the knee joint. There is some osteopenia. I see no fracture nor dislocation. There is subcutaneous edema around the lower leg. IMPRESSION: No acute bony abnormality.
--- NOTE | 2021-04-20 22:00 | XR ---
EXAMINATION TYPE: XR thoracic spine complete DATE OF EXAM: 04/20/2021 COMPARISON: NONE HISTORY: Pain TECHNIQUE: 5 views FINDINGS: Thoracic vertebra show thoracolumbar dextroscoliotic deformity. There is previous posterior fusion surgery and spinal rods stabilizing the thoracic and lumbar spine. There is fracture of the m id thoracic spinal horacio. There is right central venous catheter with tip in the top of the right atriu m. I see no compression fracture. There is osteopenia. IMPRESSION: Previous surgery. There is fracture of the spinal horacio. No significant compression deformi ty identified. Limited exam. Fracture of the horacio is also present on the chest x-ray of 02/25/2021.
--- NOTE | 2021-04-20 22:05 | XR ---
EXAMINATION TYPE: XR femur LT DATE OF EXAM: 04/20/2021 COMPARISON: CT scan 12/20/2020 HISTORY: Fall. Injury. 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 There is deformity of the pelvis with absence of the acetabulum and the pubic bones. The knee joint appears anatomic. There is osteopenia. There is minor spurring of the femoral and tibial c ondyles. There is mild knee joint space narrowing. I see no focal bone destruction. IMPRESSION: Deformities as above. No acute abnormality of the femur. No sign of osteomyelitis. Proxim al femur not changed compared to abdomen CT scan of 12/20/2020.
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
[2021-04-20 22:29] VITALS: BP 104/65; PULSE 129
[2021-04-20] MEDS ORDERED: METOPROLOL TARTRATE 25 MG TAB PO STA (22:51)
[2021-04-20] MEDS ORDERED: HYDROmorphone 0.5 MG/0.5 ML SYRINGE IM STA (22:51)
[2021-04-20] MEDS ORDERED: DOXYCYCLINE 100 MG CAP PO STA (22:51)
[2021-04-20] MEDS ORDERED: AMOXIC-POT CLAV 875-125MG 1 EACH TAB PO STA (22:51)
== END 2021-04-20 23:59 | disposition home or self-care (01) ==
LOC: EC 19:35
DX: S20.224A Contusion of middle back wall of thorax, initial encounter (principal); S80.12XA Contusion of left lower leg, initial encounter; L97.328 Non-pressure chronic ulcer of left ankle with other specified severity; I10 Essential (primary) hypertension; F17.200 Nicotine dependence, unspecified, uncomplicated; F12.90 Cannabis use, unspecified, uncomplicated; Z79.82 Long term (current) use of aspirin; Z88.1 Allergy status to other antibiotic agents; Z88.2 Allergy status to sulfonamides; W01.0XXA Fall on same level from slipping, tripping and stumbling without subsequent striking against object, initial encounter
CPT/HCPCS: 99283; 96372; 72072; 73552; 73590; J1170

== ENCOUNTER 2021-05-01 01:23 | Observation (INO) | payer OTHER ==
[2021-05-01] MEDS ORDERED: LEVOFLOXACIN 750MG-D5W PMX 750 MG in DEXTROSE/WATER 1 150ML.BAG IVPB STA (02:39)
[2021-05-01] MEDS ORDERED: HYDROmorphone 1 MG/ML 1 ML SYRINGE IVP STA (02:41)
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
[2021-05-01] MEDS ORDERED: SODIUM CHLORIDE 0.9% 1,000 ML IV SCH (02:45)
[2021-05-01 03:52] LABS: Anisocytosis Slight; Basophils % (A) 0 %; Eosinophils # (A) 0.1 k/uL (0-0.7); Eosinophils % (A) 2 %; HCT 27.8 % (39.0-53.0); HGB 8.4 gm/dL (13.0-17.5); Hypochromasia Marked; Lymphocytes # (A) 0.8 k/uL (1.0-4.8); Lymphocytes % (A) 11 %; MCHC 30.2 g/dL (31.0-37.0); MCV 89.5 fL (80.0-100.0); Mean Platelet Volume 7.1; Monocytes # (A) 0.3 k/uL (0-1.0); Monocytes % (A) 4 %; Neutrophils # (A) 6.4 k/uL (1.3-7.7); Neutrophils % (A) 82 %; Platelet Count 459 k/uL (150-450); RBC 3.11 m/uL (4.30-5.90); RDW 17.8 % (11.5-15.5); WBC 7.9 k/uL (3.8-10.6)
--- NOTE | 2021-05-01 04:02 | XR ---
EXAMINATION TYPE: XR sacrum coccyx DATE OF EXAM: 05/01/2021 COMPARISON: CT scan 12/20/2020 HISTORY: Pain TECHNIQUE: 3 views FINDINGS: There is deformity of the pelvis with absence of the acetabula and the inferior pelvis. The re is absence of the femoral heads. There is osteopenia. There is fusion surgery posteriorly in the l umbar spine and sacrum. There is absence of the coccyx and lower segments of the sacrum. Soft tissue detail limited. 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 I do not see definite new bone destruction compared to old exam.
[2021-05-01 04:03] LABS: INR 1.5 (<1.2); Partial Thromboplastin Time 34.4 sec (22.0-30.0)
[2021-05-01 04:30] LABS: ALT 27 U/L (4-49); AST 33 U/L (17-59); African American GFR (CKD) >90 (>60 ml/min/1.73 sqM); Albumin 2.9 g/dL (3.5-5.0); Anion Gap 10 mmol/L; Blood Urea Nitrogen 16 mg/dL (9-20); Calcium 8.6 mg/dL (8.4-10.2); Carbon Dioxide 20 mmol/L (22-30); Chloride 107 mmol/L (98-107); Glucose 121 mg/dL (74-99); Non-African American GFR(CKD) >90 (>60 ml/min/1.73 sqM); Potassium 4.3 mmol/L (3.5-5.1); Sodium 137 mmol/L (137-145); Total Bilirubin 0.3 mg/dL (0.2-1.3); Total Protein 6.8 g/dL (6.3-8.2)
[2021-05-01 04:37] LABS: Alkaline Phosphatase 1412 U/L (38-126)
[2021-05-01] MEDS ORDERED: NALOXONE 0.4 MG/ML 1 ML VIAL IV PRN (05:06)
[2021-05-01] MEDS ORDERED: HYDROcodone/APAP 10-325MG 1 EACH TAB PO PRN (10:15)
[2021-05-01 14:58] VITALS: BP 115/76; PULSE 88; RESP 16; TEMP 97.4
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
== END 2021-05-01 18:10 | disposition home or self-care (01) ==
LOC: EC 01:23 → 5NMEDONC 05:06 → 3NCARDOBS 09:34
PROVIDERS: ADMIT Hospitalist; ATTEND Hospitalist
DX: L89.154 Pressure ulcer of sacral region, stage 4 (principal); G82.20 Paraplegia, unspecified; M46.28 Osteomyelitis of vertebra, sacral and sacrococcygeal region; G89.29 Other chronic pain; I47.1 Supraventricular tachycardia; F41.9 Anxiety disorder, unspecified; I10 Essential (primary) hypertension; F51.04 Psychophysiologic insomnia; R50.9 Fever, unspecified; F17.200 Nicotine dependence, unspecified, uncomplicated; I45.10 Unspecified right bundle-branch block; Z20.822 Contact with and (suspected) exposure to COVID-19; Z87.828 Personal history of other (healed) physical injury and trauma; V89.2XXS Person injured in unspecified motor-vehicle accident, traffic, sequela; Z86.14 Personal history of Methicillin resistant Staphylococcus aureus infection; Z86.74 Personal history of sudden cardiac arrest; Z79.899 Other long term (current) drug therapy; Z79.01 Long term (current) use of anticoagulants; Z79.82 Long term (current) use of aspirin; Z88.1 Allergy status to other antibiotic agents; Z88.2 Allergy status to sulfonamides; Z93.6 Other artificial openings of urinary tract status; Z93.3 Colostomy status; Z95.2 Presence of prosthetic heart valve; Z99.3 Dependence on wheelchair; Z82.49 Family history of ischemic heart disease and other diseases of the circulatory system
CPT/HCPCS: 96361 ×2; 96365; 96375; 99284; 36415; 93005; 80053; 83605; 85025; 85610; 85730; 87040; 87070; 87205; 87635; 72220; G0378 ×2; J1170; J1956

== ENCOUNTER 2021-05-04 23:23 | Inpatient (IN) | payer OTHER ==
[2021-05-04] MEDS ORDERED: ADENOSINE 3 MG/ML 2 ML VIAL IVP STA (23:29)
[2021-05-04] MEDS ORDERED: SODIUM CHLORIDE 0.9% 1,000 ML IV STA (23:29)
[2021-05-04] MEDS ORDERED: SODIUM CHLORIDE 0.9% 500 ML 500 ML IV STA (23:29)
[2021-05-04] MEDS ORDERED: METOPROLOL TARTRATE 5 MG/5 ML VIAL IVP STA (23:42)
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
[2021-05-04 23:56] LABS: Anisocytosis Slight; Basophils % (A) 0 %; Eosinophils # (A) 0.1 k/uL (0-0.7); Eosinophils % (A) 1 %; HCT 27.1 % (39.0-53.0); HGB 8.2 gm/dL (13.0-17.5); Hypochromasia Moderate; Lymphocytes # (A) 0.9 k/uL (1.0-4.8); Lymphocytes % (A) 9 %; MCH 26.5 pg (25.0-35.0); MCHC 30.4 g/dL (31.0-37.0); MCV 87.1 fL (80.0-100.0); Mean Platelet Volume 7.9; Monocytes # (A) 0.5 k/uL (0-1.0); Monocytes % (A) 5 %; Neutrophils # (A) 7.9 k/uL (1.3-7.7); Neutrophils % (A) 84 %; Platelet Count 349 k/uL (150-450); RBC 3.11 m/uL (4.30-5.90); RDW 17.1 % (11.5-15.5); WBC 9.4 k/uL (3.8-10.6)
[2021-05-05 00:05] LABS: Partial Thromboplastin Time 39.6 sec (22.0-30.0); Prothrombin Time 19.4 sec (9.0-12.0)
[2021-05-05 00:24] LABS: ALT 26 U/L (4-49); AST 54 U/L (17-59); African American GFR (CKD) >90 (>60 ml/min/1.73 sqM); Albumin 2.8 g/dL (3.5-5.0); Anion Gap 8 mmol/L; Blood Urea Nitrogen 13 mg/dL (9-20); Calcium 8.4 mg/dL (8.4-10.2); Carbon Dioxide 19 mmol/L (22-30); Chloride 106 mmol/L (98-107); Glucose 107 mg/dL (74-99); Magnesium 1.7 mg/dL (1.6-2.3); Non-African American GFR(CKD) >90 (>60 ml/min/1.73 sqM); Phosphorus 3.4 mg/dL (2.5-4.5); Potassium 4.3 mmol/L (3.5-5.1); Sodium 133 mmol/L (137-145); Total Bilirubin 0.4 mg/dL (0.2-1.3); Total Protein 6.6 g/dL (6.3-8.2)
[2021-05-05 00:33] LABS: Alkaline Phosphatase 1769 U/L (38-126)
[2021-05-05] MEDS ORDERED: ACETAMINOPHEN TAB 325 MG TAB PO PRN (01:14)
[2021-05-05] MEDS ORDERED: IBUPROFEN 400 MG TAB PO PRN (01:14)
[2021-05-05] MEDS ORDERED: NALOXONE 0.4 MG/ML 1 ML VIAL IV PRN (01:14)
[2021-05-05] MEDS: SODIUM CHLORIDE 0.9% 1,000 ML IV SCH ×2 (01:24→08:40)
[2021-05-05] MEDS: MORPHINE SULFATE 4 MG/ML SYRINGE IV PRN ×3 (03:05→12:40)
[2021-05-05] MEDS ORDERED: ALPRAZolam 0.25 MG TAB PO PRN (13:57)
[2021-05-05] MEDS ORDERED: FUROSEMIDE 80 MG TAB PO SCH (14:00)
[2021-05-05] MEDS ORDERED: ASCORBIC ACID 500 MG TAB PO SCH (14:00)
[2021-05-05] MEDS ORDERED: FERROUS SULFATE 325 MG TAB PO SCH (14:00)
[2021-05-05 14:02] LABS: Appearance,Urine Clear (Clear); Bacteria,Urine Rare /hpf; Bilirubin,Urine Negative (Negative); Blood,Urine Small (Negative); Budding Yeast,Urine Few /hpf; Color,Urine Yellow; Glucose,Urine (UA) Negative (Negative); Hyaline Casts,Urine 1 /lpf (0-2); Ketones,Urine Negative (Negative); Leukocyte Esterase,Urine Small (Negative); Mucus,Urine Occasional /hpf; Nitrite,Urine Positive (Negative); Protein,Urine 1+ (Negative); RBC,Urine 9 /hpf (0-5); Specific Gravity,Urine 1.008 (1.001-1.035); Urobilinogen,Urine <2.0 mg/dL (<2.0); WBC,Urine 8 /hpf (0-5)
[2021-05-05] MEDS ORDERED: METOPROLOL TARTRATE 25 MG TAB PO SCH (14:02)
[2021-05-05] MEDS ORDERED: HYDROcodone/APAP 10-325MG 1 EACH TAB PO PRN (14:02)
[2021-05-05] MEDS ORDERED: MULTIVITAMINS, THERA 1 EACH TAB PO SCH (14:15)
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
[2021-05-05] MEDS ORDERED: WARFARIN 5 MG TAB PO ONE (18:00)
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
[2021-05-05 19:41] VITALS: BP 110/73; PULSE 82; RESP 18; TEMP 98.1
[2021-05-05] MEDS ORDERED: AMOXIC-POT CLAV 875-125MG 1 EACH TAB PO SCH (21:00)
[2021-05-05] MEDS ORDERED: METOPROLOL TARTRATE 50 MG TAB PO SCH (21:00)
[2021-05-05] MEDS ORDERED: DOXYCYCLINE 100 MG CAP PO SCH (21:00)
[2021-05-05] MEDS ORDERED: TEMAZEPAM 15 MG CAP PO SCH (21:00)
== END 2021-05-05 20:10 | disposition home health service (06) | DRG 308 ==
LOC: EC 23:23 → 3SCARD 05-05 01:14
PROVIDERS: ADMIT Hospitalist; ATTEND Hospitalist
DX: I47.1 Supraventricular tachycardia (principal); L89.154 Pressure ulcer of sacral region, stage 4; G82.20 Paraplegia, unspecified; M46.28 Osteomyelitis of vertebra, sacral and sacrococcygeal region; F10.10 Alcohol abuse, uncomplicated; F17.210 Nicotine dependence, cigarettes, uncomplicated; F41.9 Anxiety disorder, unspecified; F51.04 Psychophysiologic insomnia; I07.1 Rheumatic tricuspid insufficiency; I10 Essential (primary) hypertension; Z20.822 Contact with and (suspected) exposure to COVID-19; V89.2XXS Person injured in unspecified motor-vehicle accident, traffic, sequela; Z79.01 Long term (current) use of anticoagulants; Z79.899 Other long term (current) drug therapy; Z82.1 Family history of blindness and visual loss; Z82.49 Family history of ischemic heart disease and other diseases of the circulatory system; Z86.711 Personal history of pulmonary embolism; Z86.718 Personal history of other venous thrombosis and embolism; Z86.74 Personal history of sudden cardiac arrest; Z93.3 Colostomy status; Z93.6 Other artificial openings of urinary tract status; Z95.2 Presence of prosthetic heart valve; Z99.3 Dependence on wheelchair; Z88.1 Allergy status to other antibiotic agents; Z88.2 Allergy status to sulfonamides; Z88.8 Allergy status to other drugs, medicaments and biological substances; Z86.14 Personal history of Methicillin resistant Staphylococcus aureus infection
CPT/HCPCS: 36415; 80053; 81001; 83605; 83735; 83880; 84100; 84484; 85025; 85610; 85730; 87635; 93005; 96361; 96374; 96375; 99291

== ENCOUNTER 2021-05-11 15:57 | Emergency (ER) | payer OTHER ==
[2021-05-11] MEDS: ACETAMINOPHEN TAB 325 MG TAB PO STA ×2 (18:49→21:50)
[2021-05-11] MEDS: IBUPROFEN 600 MG TAB PO STA (18:49)
[2021-05-11 19:09] LABS: Anisocytosis Slight; Basophils % (A) 0 %; Eosinophils # (A) 0.1 k/uL (0-0.7); Eosinophils % (A) 1 %; HCT 25.7 % (39.0-53.0); Hypochromasia Moderate; Lymphocytes # (A) 0.3 k/uL (1.0-4.8); Lymphocytes % (A) 3 %; MCH 26.5 pg (25.0-35.0); MCHC 30.9 g/dL (31.0-37.0); MCV 85.7 fL (80.0-100.0); Mean Platelet Volume 7.5; Monocytes # (A) 0.3 k/uL (0-1.0); Monocytes % (A) 3 %; Neutrophils # (A) 10.2 k/uL (1.3-7.7); Neutrophils % (A) 93 %; Platelet Count 397 k/uL (150-450); RDW 16.9 % (11.5-15.5); WBC 10.9 k/uL (3.8-10.6)
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
[2021-05-11] MEDS: HYDROmorphone 1 MG/ML 1 ML SYRINGE IVP STA (19:23)
[2021-05-11 19:26] VITALS: PULSE 87; RESP 16
[2021-05-11 19:38] LABS: ALT 19 U/L (4-49); AST 37 U/L (17-59); African American GFR (CKD) >90 (>60 ml/min/1.73 sqM); Albumin 2.7 g/dL (3.5-5.0); Anion Gap 12 mmol/L; Blood Urea Nitrogen 25 mg/dL (9-20); Calcium 7.8 mg/dL (8.4-10.2); Carbon Dioxide 17 mmol/L (22-30); Chloride 98 mmol/L (98-107); Glucose 108 mg/dL (74-99); Non-African American GFR(CKD) >90 (>60 ml/min/1.73 sqM); Sodium 127 mmol/L (137-145); Total Bilirubin 0.7 mg/dL (0.2-1.3); Total Protein 6.4 g/dL (6.3-8.2)
[2021-05-11 20:09] LABS: Alkaline Phosphatase 1570 U/L (38-126)
--- NOTE | 2021-05-11 21:12 | XR ---
EXAMINATION TYPE: XR chest 2V DATE OF EXAM: 05/11/2021 COMPARISON: 02/25/2021 HISTORY: Fever TECHNIQUE: 2 views FINDINGS: There is no heart failure nor confluent pneumonic infiltrate. Costophrenic angles are clear . There are sternal wires. There is paraspinal horacio stabilizing the thoracic spine. There is cardiac v alve surgery. Heart appears enlarged. IMPRESSION: No active cardiopulmonary disease. No change. Stable mild cardiomegaly.
[2021-05-11 22:03] VITALS: BP 89/63; TEMP 98.3
== END 2021-05-11 22:24 | disposition home or self-care (01) ==
LOC: EC 15:57
DX: J06.9 Acute upper respiratory infection, unspecified (principal); F17.200 Nicotine dependence, unspecified, uncomplicated; I10 Essential (primary) hypertension; Z88.1 Allergy status to other antibiotic agents; Z88.2 Allergy status to sulfonamides; Z20.822 Contact with and (suspected) exposure to COVID-19; Z88.8 Allergy status to other drugs, medicaments and biological substances; Z79.899 Other long term (current) drug therapy
CPT/HCPCS: 36415; 80053; 85025; 87635; 71046; 99283; 96374; J1170

== ENCOUNTER 2021-05-12 12:00 | Inpatient (IN) | payer OTHER ==
[2021-05-12] MEDS ORDERED: AMPICILLIN-SULBACTAM 3 GM in SODIUM CHLORIDE 0.9% 100 ML IVPB STA (12:34)
[2021-05-12] MEDS ORDERED: ACETAMINOPHEN TAB 500 MG TAB PO STA (12:38)
[2021-05-12] MEDS ORDERED: IBUPROFEN 600 MG TAB PO STA (12:38)
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
[2021-05-12] MEDS: SODIUM CHLORIDE 0.9% 500 ML 500 ML IV SCH ×2 (12:52→14:07)
[2021-05-12 13:04] LABS: Appearance,Urine Cloudy (Clear); Bacteria,Urine Rare /hpf; Bilirubin,Urine Negative (Negative); Blood,Urine Large (Negative); Budding Yeast,Urine Moderate /hpf; Color,Urine Yellow; Glucose,Urine (UA) Negative (Negative); Granular Casts,Urine 3 /lpf (0); Hyaline Casts,Urine 1 /lpf (0-2); Ketones,Urine Negative (Negative); Leukocyte Esterase,Urine Large (Negative); Mucus,Urine Rare /hpf; Nitrite,Urine Negative (Negative); Protein,Urine 2+ (Negative); RBC,Urine 123 /hpf (0-5); Specific Gravity,Urine 1.016 (1.001-1.035); Squamous Epithelial Cell,Urine 1 /hpf (0-4); Urobilinogen,Urine <2.0 mg/dL (<2.0); WBC,Urine 19 /hpf (0-5)
[2021-05-12] MEDS ORDERED: HYDROmorphone 0.5 MG/0.5 ML SYRINGE IVP STA (13:07)
[2021-05-12 13:22] LABS: ALT 21 U/L (4-49); AST 39 U/L (17-59); African American GFR (CKD) >90 (>60 ml/min/1.73 sqM); Albumin 2.6 g/dL (3.5-5.0); Anion Gap 13 mmol/L; Blood Urea Nitrogen 28 mg/dL (9-20); Calcium 8.2 mg/dL (8.4-10.2); Carbon Dioxide 16 mmol/L (22-30); Chloride 103 mmol/L (98-107); Glucose 98 mg/dL (74-99); Non-African American GFR(CKD) >90 (>60 ml/min/1.73 sqM); Potassium 4.9 mmol/L (3.5-5.1); Sodium 132 mmol/L (137-145); Total Bilirubin 1.1 mg/dL (0.2-1.3); Total Protein 6.2 g/dL (6.3-8.2)
[2021-05-12 13:45] LABS: Anisocytosis Slight; HCT 25.9 % (39.0-53.0); HGB 8.1 gm/dL (13.0-17.5); Hypochromasia Moderate; MCH 26.9 pg (25.0-35.0); MCHC 31.1 g/dL (31.0-37.0); MCV 86.3 fL (80.0-100.0); Mean Platelet Volume 8.2; Platelet Count 320 k/uL (150-450); RDW 16.8 % (11.5-15.5); WBC 5.2 k/uL (3.8-10.6)
[2021-05-12] MEDS ORDERED: ADENOSINE 3 MG/ML 2 ML VIAL IVP STA (13:57)
[2021-05-12] MEDS ORDERED: SODIUM CHLORIDE 0.9% 1,000 ML IV STA (14:00)
[2021-05-12 14:04] LABS: Alkaline Phosphatase 1407 U/L (38-126)
[2021-05-12 14:16] LABS: Band Neutrophils % 6 %; Lymphocytes # (M) 0.16 k/uL (1.0-4.8); Neutrophils % (M) 91 %; Nucleated Red Blood Cells 0 /100 WBC (0-0); Total Cells Counted 100
[2021-05-12 14:19] LABS: Toxic Granulation Present; Toxic Vacuolation Present
[2021-05-12] MEDS ORDERED: SODIUM CHLORIDE 0.9% 500 ML 500 ML IV ONE (15:24)
[2021-05-12 16:03] LABS: INR 2.5 (<1.2); Partial Thromboplastin Time 53.8 sec (22.0-30.0); Prothrombin Time 24.1 sec (9.0-12.0)
[2021-05-12] MEDS ORDERED: HYDROCORTISONE SUCCINATE 100 MG/2 ML VIAL IV STA (16:03)
[2021-05-12] MEDS ORDERED: SODIUM CHLORIDE 0.9% 1,000 ML IV ONE (16:53)
[2021-05-12] MEDS ORDERED: ALPRAZolam 0.25 MG TAB PO PRN (18:32)
[2021-05-12] MEDS ORDERED: HYDROcodone/APAP 10-325MG 1 EACH TAB PO PRN (18:32)
[2021-05-12] MEDS: METOPROLOL TARTRATE 50 MG TAB PO SCH (20:29)
[2021-05-12] MEDS: ASCORBIC ACID 500 MG TAB PO SCH (20:29)
[2021-05-12] MEDS ORDERED: TEMAZEPAM 30 MG CAP PO SCH (21:00)
[2021-05-12] MEDS ORDERED: WARFARIN 7.5 MG TAB PO SCH (21:00)
[2021-05-12] MEDS: AMPICILLIN-SULBACTAM 3 GM in SODIUM CHLORIDE 0.9% 100 ML IVPB SCH (21:19)
[2021-05-12] MEDS: TEMAZEPAM 15 MG CAP PO SCH (21:19)
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
[2021-05-12] MEDS: AMOXIC-POT CLAV 875-125MG 1 EACH TAB PO SCH (21:55)
[2021-05-12] MEDS: DOXYCYCLINE 100 MG CAP PO SCH (21:55)
[2021-05-13] MEDS: AMPICILLIN-SULBACTAM 3 GM in SODIUM CHLORIDE 0.9% 100 ML IVPB SCH ×4 (00:03→17:59)
[2021-05-13] MEDS ORDERED: FUROSEMIDE 80 MG TAB PO SCH (09:00)
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
[2021-05-13] MEDS: AMOXIC-POT CLAV 875-125MG 1 EACH TAB PO SCH (10:35)
[2021-05-13] MEDS: MULTIVITAMINS, THERA 1 EACH TAB PO SCH (10:35)
[2021-05-13] MEDS: ASCORBIC ACID 500 MG TAB PO SCH ×2 (10:36→21:03)
[2021-05-13] MEDS: FERROUS SULFATE 325 MG TAB PO SCH (10:36)
[2021-05-13] MEDS: METOPROLOL TARTRATE 50 MG TAB PO SCH ×2 (10:36→21:03)
[2021-05-13] MEDS: POTASSIUM CHLORIDE ER 20 MEQ TAB.ER PO SCH (10:37)
[2021-05-13] MEDS: DOXYCYCLINE 100 MG CAP PO SCH ×2 (10:37→21:11)
[2021-05-13 11:20] LABS: INR 3.9 (<1.2); Prothrombin Time 37.6 sec (9.0-12.0)
[2021-05-13] MEDS: MIDODRINE 5 MG TAB PO SCH ×2 (13:07→17:59)
[2021-05-13] MEDS ORDERED: diphenhydrAMINE 25 MG CAP PO SCH (16:30)
[2021-05-13] MEDS ORDERED: WARFARIN 0.5 MG TAB PO ONE (18:00)
[2021-05-13] MEDS ORDERED: diphenhydrAMINE 50 MG/ML 1 ML VIAL IVP STA (20:47)
[2021-05-13] MEDS: TEMAZEPAM 15 MG CAP PO SCH (21:03)
[2021-05-13] MEDS: DAPTOmycin 350 MG in SODIUM CHLORIDE 0.9% 50 ML IVPB SCH (21:28)
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
[2021-05-14] MEDS: AMPICILLIN-SULBACTAM 3 GM in SODIUM CHLORIDE 0.9% 100 ML IVPB SCH ×2 (00:26→06:36)
[2021-05-14] MEDS: MIDODRINE 5 MG TAB PO SCH ×3 (06:37→16:41)
--- NOTE | 2021-05-14 10:50 | P.PN ---
Subjective Progress Note Date: 05/14/21 Principal diagnosis: SVT The patient is a 45-year-old gentleman who is paraplegic with a past medical history significant for supraventricular tachycardia as well as history of tr icuspid valve replacement. The continues to be tachycardic. The pressure continues to be normal. He continues to be refused to be seen and examined. I'm going to increase the dose of metoprolol to 50 mg by mouth 3 times a day. Objective - Vital Signs Vital signs: Vital Signs Temp 98.1 F 05/14/21 04:00 Pulse 105 H 05/14/21 04:00 Resp 16 05/14/21 04:00 BP 118/71 05/14/21 04:00 Pulse Ox 100 05/14/21 04:00 Intake & Output 05/13/21 05/14/21 05/14/21 18:59 06:59 18:59 Intake Total 236 10 Output Total 900 Balance -664 10 Intake: IV 10 Invasive Line 1 10 Oral 236 Output: Urine 900 Other: Voiding Method Ileal Conduit (Right) # Bowel Movements 1 - Constitutional General appearance: Present: no acute distress - Labs CBC & Chem 7: 05/12/21 12:41 05/12/21 12:41 Labs: Abnormal Lab Results - Last 24 Hours (Table) 05/13/21 Range/Units 10:50 PT 37.6 H (9.0-12.0) sec INR 3.9 H (<1.2) Microbiology - Last 24 Hours (Table) 05/12/21 12:41 Urine Culture - Final Urine,Voided Pseudomonas aeruginosa 05/12/21 12:40 Blood Culture Gram Stain - Preliminary Blood Blood Culture - Preliminary Staphylococcus aureus 05/12/21 12:58 Blood Culture Gram Stain - Preliminary Blood 05/12/21 12:40 Blood Culture - Final Blood 05/12/21 12:58 Blood Culture - Final Blood Assessment and Plan Assessment: Assessment #1 SVT. Currently the patient is in normal sinus mechanism #2 chronic decubitus ulcers #3 para ablation #4 history of tricuspid valve replacement #5 marginal blood pressure Plan #1 increase the dose of metoprolol #2 he just echo from this year showed normal LV function #3 start the patient on small dose of midodrine and #4 continue anticoagulation was Coumadin #5 follow-up with the patient
[2021-05-14] MEDS: ASCORBIC ACID 500 MG TAB PO SCH ×2 (11:02→20:03)
[2021-05-14] MEDS: FERROUS SULFATE 325 MG TAB PO SCH (11:03)
[2021-05-14] MEDS: DOXYCYCLINE 100 MG CAP PO SCH ×2 (11:03→21:28)
[2021-05-14] MEDS: MULTIVITAMINS, THERA 1 EACH TAB PO SCH (11:03)
[2021-05-14] MEDS: POTASSIUM CHLORIDE ER 20 MEQ TAB.ER PO SCH (11:03)
[2021-05-14 12:10] LABS: INR 4.6 (<1.2); Prothrombin Time 44.1 sec (9.0-12.0)
[2021-05-14] MEDS: METOPROLOL TARTRATE 50 MG TAB PO SCH ×4 (13:49→20:03)
[2021-05-14] MEDS: HYDROmorphone 0.5 MG/0.5 ML SYRINGE IVP PRN ×2 (15:53→20:03)
[2021-05-14] MEDS: diphenhydrAMINE 50 MG/ML 1 ML VIAL IVP SCH (15:54)
[2021-05-14] MEDS: DAPTOmycin 350 MG in SODIUM CHLORIDE 0.9% 50 ML IVPB SCH (16:42)
[2021-05-14] MEDS ORDERED: WARFARIN 0.5 MG TAB PO ONE (18:00)
[2021-05-14] MEDS: TEMAZEPAM 15 MG CAP PO SCH (20:03)
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
--- NOTE | 2021-05-14 22:57 | PN ---
PROGRESS NOTE DATE OF SERVICE: 05/14/2021 REASON FOR FOLLOWUP: 1. Infected sacral pressure ulcer. 2. Bacteremia. 3. Positive urine culture with drug-resistant Pseudomonas. INTERVAL HISTORY: The patient is afebrile. The patient has been breathing comfortably. Denies having any chest pain, shortness of breath or cough. No abdominal pain or any diarrhea. PHYSICAL EXAMINATION: Blood pressure is 108/71 with a pulse of 122, temperature 98.3. He is 100% on room air. General description is an elderly male lying in bed in no distress. Respiratory system: Unlabored breathing. Clear to auscultation anteriorly. Heart S1, S2. Regular rate and rhythm. Abdomen soft, no tenderness. LABS: INR is 4.6. Blood culture is showing MRSA. Urine with drug-resistant Pseudomonas aeruginosa. DIAGNOSTIC IMPRESSION AND PLAN: 1. Patient admitted to hospital with a fever with MRSA bacteremia, concern for possible infected pressure ulcer versus port infection. Patient is on daptomycin. 2. Patient with multidrug-resistant Pseudomonas in the urine. Urine was obtained from the urostomy bag; possibly colonization. Discontinue Unasyn. Will hold on adding any further antibiotic therapy for the positive UA. 3. Overall poor prognosis. Primary has talked to the patient about hospice care, which may be appropriate. Continue with supportive care. MMODL / IJN: [id number] /
[2021-05-15] MEDS: HYDROmorphone 0.5 MG/0.5 ML SYRINGE IVP PRN ×6 (00:13→22:21)
[2021-05-15] MEDS: MIDODRINE 5 MG TAB PO SCH ×3 (06:24→16:43)
[2021-05-15] MEDS: FERROUS SULFATE 325 MG TAB PO SCH (10:39)
[2021-05-15] MEDS: MULTIVITAMINS, THERA 1 EACH TAB PO SCH (10:39)
[2021-05-15] MEDS: ASCORBIC ACID 500 MG TAB PO SCH ×2 (10:39→22:21)
[2021-05-15] MEDS: POTASSIUM CHLORIDE ER 20 MEQ TAB.ER PO SCH (10:39)
[2021-05-15] MEDS: METOPROLOL TARTRATE 50 MG TAB PO SCH ×3 (10:39→22:21)
[2021-05-15] MEDS: DOXYCYCLINE 100 MG CAP PO SCH ×2 (10:39→22:21)
[2021-05-15 11:30] LABS: INR 2.3 (<1.2); Prothrombin Time 22.4 sec (9.0-12.0)
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
[2021-05-15] MEDS: diphenhydrAMINE 50 MG/ML 1 ML VIAL IVP SCH (16:42)
--- NOTE | 2021-05-15 17:10 | PN ---
PROGRESS NOTE DATE OF SERVICE: 05/15/2021 REASON FOR FOLLOWUP: 1. Bacteremia and infected pressure ulcer. 2. Positive culture. INTERVAL HISTORY: The patient is afebrile. The patient is breathing comfortably on room air, currently 100%. Patient denies any chest pain. Has been complaining of pain to the site in the lower back area. No nausea. No vomiting or diarrhea. PHYSICAL EXAMINATION: Blood pressure 133/70 with a pulse of 105, temperature is 97.5. He is 100% on room air. General description is a middle-aged male lying in bed in no distress. Respiratory system: Unlabored breathing, clear to auscultation anteriorly. Heart S1, S2. Regular rate and rhythm. Abdomen soft, no tenderness. LABS: INR is 2.9. DIAGNOSTIC IMPRESSION AND PLAN: Patient with infected sacral pressure ulcer with MRSA bacteremia. Source could be ( ). Repeat blood culture has been negative so far. The patient is on daptomycin, however, plan for possible hospice which may be appropriate for him. Antibiotic ( ). Local wound care is ordered. Discussed with the admitting physician. MMODL / IJN: [id number] /
[2021-05-15] MEDS: DAPTOmycin 350 MG in SODIUM CHLORIDE 0.9% 50 ML IVPB SCH (17:13)
[2021-05-15] MEDS ORDERED: WARFARIN 2 MG TAB PO ONE (18:00)
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
[2021-05-15] MEDS: TEMAZEPAM 15 MG CAP PO SCH (22:21)
[2021-05-16] MEDS: HYDROmorphone 0.5 MG/0.5 ML SYRINGE IVP PRN ×6 (02:32→22:44)
[2021-05-16] MEDS: MIDODRINE 5 MG TAB PO SCH ×3 (06:30→17:11)
[2021-05-16] MEDS: MULTIVITAMINS, THERA 1 EACH TAB PO SCH (09:45)
[2021-05-16] MEDS: FERROUS SULFATE 325 MG TAB PO SCH (09:45)
[2021-05-16] MEDS: ASCORBIC ACID 500 MG TAB PO SCH ×2 (09:45→20:10)
[2021-05-16] MEDS: DOXYCYCLINE 100 MG CAP PO SCH ×2 (09:46→20:10)
[2021-05-16] MEDS: METOPROLOL TARTRATE 50 MG TAB PO SCH ×3 (09:46→20:10)
[2021-05-16] MEDS: POTASSIUM CHLORIDE ER 20 MEQ TAB.ER PO SCH (09:46)
[2021-05-16 10:11] LABS: INR 2.6 (<1.2); Prothrombin Time 24.8 sec (9.0-12.0)
[2021-05-16] MEDS: DAPTOmycin 350 MG in SODIUM CHLORIDE 0.9% 50 ML IVPB SCH (17:11)
[2021-05-16] MEDS: diphenhydrAMINE 50 MG/ML 1 ML VIAL IVP SCH (17:11)
[2021-05-16] MEDS ORDERED: WARFARIN 2 MG TAB PO ONE (18:00)
--- NOTE | 2021-05-16 18:29 | PN ---
PROGRESS NOTE DATE OF SERVICE: 05/16/2021 REASON FOR FOLLOWUP: Fever and concern for an infected sacral pressure ulcer. INTERVAL HISTORY: The patient overall feels better and has improved. The patient is breathing comfortably. Still complaining of pain and wanting more pain medication. No chest pain. No abdominal pain, no diarrhea. PHYSICAL EXAMINATION: Blood pressure 108/75, pulse 107, temperature 98.2. He is 97% on room air. General description is a middle-aged male lying in bed in no distress. Respiratory system: Unlabored breathing, decreased intensity of the breath sounds. No wheeze. Heart S1, S2. Regular rate and rhythm. Abdomen soft, no tenderness. Extremities: No edema of the feet. LABS: INR is 2.6. DIAGNOSTIC IMPRESSION AND PLAN: Patient with MRSA bacteremia concerning for an infected sacral pressure ulcer in this patient did have multiple failed medical therapy and no surgical intervention could be performed with option for hospice if that's the case. Antibiotic can be safely discontinued. Local wound care as ordered. Monitor clinical course closely. EVITAL / IJN: [id number] /
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
[2021-05-16] MEDS: TEMAZEPAM 15 MG CAP PO SCH (20:10)
[2021-05-17] MEDS: HYDROmorphone 0.5 MG/0.5 ML SYRINGE IVP PRN ×3 (03:20→12:50)
[2021-05-17] MEDS: MIDODRINE 5 MG TAB PO SCH ×2 (06:35→11:21)
[2021-05-17] MEDS: POTASSIUM CHLORIDE ER 20 MEQ TAB.ER PO SCH (08:53)
[2021-05-17] MEDS: FERROUS SULFATE 325 MG TAB PO SCH (08:53)
[2021-05-17] MEDS: MULTIVITAMINS, THERA 1 EACH TAB PO SCH (08:53)
[2021-05-17] MEDS: DOXYCYCLINE 100 MG CAP PO SCH (08:53)
[2021-05-17] MEDS: METOPROLOL TARTRATE 50 MG TAB PO SCH (08:53)
[2021-05-17] MEDS: ASCORBIC ACID 500 MG TAB PO SCH (08:54)
[2021-05-17 09:44] LABS: INR 3.6 (<1.2); Prothrombin Time 34.2 sec (9.0-12.0)
[2021-05-17 11:34] VITALS: BP 105/65; PULSE 107; RESP 16; TEMP 97.6
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
[2021-05-17] MEDS ORDERED: WARFARIN 0.5 MG TAB PO ONE (18:00)
== END 2021-05-17 13:15 | disposition hospice, inpatient (51) | DRG 308 ==
LOC: EC 12:00 → 3SCARD 16:53
PROVIDERS: ADMIT Hospitalist; ATTEND Hospitalist
DX: I47.1 Supraventricular tachycardia (principal); L89.154 Pressure ulcer of sacral region, stage 4; L97.322 Non-pressure chronic ulcer of left ankle with fat layer exposed; M46.28 Osteomyelitis of vertebra, sacral and sacrococcygeal region; R78.81 Bacteremia; Z16.24 Resistance to multiple antibiotics; G82.20 Paraplegia, unspecified; I10 Essential (primary) hypertension; M19.90 Unspecified osteoarthritis, unspecified site; Z86.14 Personal history of Methicillin resistant Staphylococcus aureus infection; Z51.5 Encounter for palliative care; Z66 Do not resuscitate; Z20.822 Contact with and (suspected) exposure to COVID-19; Z79.01 Long term (current) use of anticoagulants; Z79.899 Other long term (current) drug therapy; Z82.1 Family history of blindness and visual loss; Z82.49 Family history of ischemic heart disease and other diseases of the circulatory system; Z86.718 Personal history of other venous thrombosis and embolism; Z86.74 Personal history of sudden cardiac arrest; Z93.3 Colostomy status; Z93.6 Other artificial openings of urinary tract status; Z95.2 Presence of prosthetic heart valve; B95.62 Methicillin resistant Staphylococcus aureus infection as the cause of diseases classified elsewhere; F17.200 Nicotine dependence, unspecified, uncomplicated; F32.A Depression, unspecified; F41.9 Anxiety disorder, unspecified; F51.04 Psychophysiologic insomnia; V89.2XXS Person injured in unspecified motor-vehicle accident, traffic, sequela; I95.9 Hypotension, unspecified; G89.29 Other chronic pain
CPT/HCPCS: 36415; 80053; 81001; 83605; 85025; 85610; 85730; 87040; 87077; 87086; 87186; 87635; 93005; 96361; 96365; 96375; 99291

== ENCOUNTER 2021-05-20 17:32 | Inpatient (IN) | payer OTHER ==
[2021-05-20] MEDS ORDERED: SODIUM CHLORIDE 0.9% 1,000 ML IV STA (17:55)
[2021-05-20] MEDS ORDERED: HYDROmorphone 0.5 MG/0.5 ML SYRINGE IVP STA (18:17)
[2021-05-20 18:42] LABS: Anisocytosis Slight; Basophils % (A) 0 %; Eosinophils # (A) 0.1 k/uL (0-0.7); Eosinophils % (A) 1 %; HCT 20.2 % (39.0-53.0); Hypochromasia Marked; Lymphocytes # (A) 0.7 k/uL (1.0-4.8); Lymphocytes % (A) 5 %; MCH 26.9 pg (25.0-35.0); MCHC 30.8 g/dL (31.0-37.0); MCV 87.4 fL (80.0-100.0); Mean Platelet Volume 7.3; Monocytes # (A) 0.3 k/uL (0-1.0); Monocytes % (A) 2 %; Neutrophils # (A) 13.7 k/uL (1.3-7.7); Neutrophils % (A) 92 %; Platelet Count 386 k/uL (150-450); RBC 2.32 m/uL (4.30-5.90); RDW 17.8 % (11.5-15.5); WBC 14.9 k/uL (3.8-10.6)
[2021-05-20 18:44] LABS: HGB 6.2 gm/dL (13.0-17.5)
[2021-05-20 18:50] LABS: ALT 13 U/L (4-49); AST 31 U/L (17-59); African American GFR (CKD) >90 (>60 ml/min/1.73 sqM); Albumin 2.7 g/dL (3.5-5.0); Anion Gap 10 mmol/L; Blood Urea Nitrogen 11 mg/dL (9-20); Calcium 8.4 mg/dL (8.4-10.2); Carbon Dioxide 18 mmol/L (22-30); Chloride 106 mmol/L (98-107); Glucose 103 mg/dL (74-99); Magnesium 1.8 mg/dL (1.6-2.3); Non-African American GFR(CKD) >90 (>60 ml/min/1.73 sqM); Potassium 3.5 mmol/L (3.5-5.1); Sodium 134 mmol/L (137-145); Total Protein 6.8 g/dL (6.3-8.2)
[2021-05-20] MEDS ORDERED: ACETAMINOPHEN TAB 500 MG TAB PO STA (18:53)
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
[2021-05-20 19:07] LABS: Alkaline Phosphatase 1503 U/L (38-126)
[2021-05-20] MEDS ORDERED: ONDANSETRON 4 MG/2 ML VIAL IVP PRN (20:21)
[2021-05-20] MEDS ORDERED: NALOXONE 0.4 MG/ML 1 ML VIAL IV PRN (20:21)
[2021-05-20] MEDS ORDERED: PANTOPRAZOLE 40 MG/10 ML VIAL IVP STA (20:29)
[2021-05-20 20:37] LABS: Appearance,Urine Turbid (Clear); Bilirubin,Urine Negative (Negative); Blood,Urine Moderate (Negative); Budding Yeast,Urine Rare /hpf; Color,Urine Yellow; Glucose,Urine (UA) Negative (Negative); Ketones,Urine Negative (Negative); Leukocyte Esterase,Urine Moderate (Negative); Mucus,Urine Rare /hpf; Nitrite,Urine Negative (Negative); Protein,Urine 1+ (Negative); RBC,Urine 11 /hpf (0-5); Specific Gravity,Urine 1.012 (1.001-1.035); Squamous Epithelial Cell,Urine <1 /hpf (0-4); Urobilinogen,Urine <2.0 mg/dL (<2.0); WBC,Urine 13 /hpf (0-5)
[2021-05-20] MEDS: HYDROmorphone 0.5 MG/0.5 ML SYRINGE IVP PRN (22:02)
[2021-05-20] MEDS: SODIUM CHLORIDE 0.9% 1,000 ML IV SCH (22:02)
[2021-05-20 23:26] LABS: INR 1.3 (<1.2); Partial Thromboplastin Time 38.4 sec (22.0-30.0); Prothrombin Time 13.2 sec (9.0-12.0)
[2021-05-21] MEDS ORDERED: LIDOCAINE 1% INJ 10MG/ML (20 ML MDV) ONE (01:42)
[2021-05-21] MEDS ORDERED: HEPARIN SODIUM,PORCINE 30 ML 30 ML ONE (01:43)
[2021-05-21] MEDS ORDERED: VERAPAMIL 2.5 MG/ML 2 ML AMP ONE (01:43)
[2021-05-21] MEDS ORDERED: MORPHINE SULFATE 4 MG/ML SYRINGE ONE (01:59)
[2021-05-21] MEDS: HYDROmorphone 0.5 MG/0.5 ML SYRINGE IVP PRN ×5 (03:03→20:47)
[2021-05-21] MEDS ORDERED: ACETAMINOPHEN TAB 500 MG TAB PO PRN (10:37)
[2021-05-21] MEDS: SODIUM CHLORIDE 0.9% 1,000 ML IV SCH ×2 (10:46→23:04)
[2021-05-21] MEDS ORDERED: ADENOSINE 3 MG/ML 2 ML VIAL IVP STA ×3 (11:45→11:50)
[2021-05-21] MEDS ORDERED: METOPROLOL TARTRATE 5 MG/5 ML VIAL IVP PRN (11:56)
[2021-05-21] MEDS ORDERED: METOPROLOL TARTRATE 5 MG/5 ML VIAL IVP ONE (11:59)
[2021-05-21] MEDS: METOPROLOL TARTRATE 50 MG TAB PO SCH ×4 (12:05→23:09)
--- NOTE | 2021-05-21 12:21 | P.PN ---
Progress Note - Text Progress Note Date: 05/21/21 Patient is here for anemia, received 1 unit of PRBC transfusion. Rapid response was called due to fast heart rate. Patient's HR jumped up to 200. His blood pressure was in the 90 systolic. Patient was feeling chest pressure and shortness of breath. EKG showed SVT. Patient does have history of SVT. He was given adenosine initially at 6 mg IV and then 12 mg. Heart rate came down to 150s. After that he was given metoprolol 2.5 mg IV. His heart rate came down to 130. I told his RN to give him his by mouth metoprolol immediately. Case was discussed with attending. Cardiology was called. Time for crit care 32 minutes.
[2021-05-21] MEDS ORDERED: HYDROcodone/APAP 10-325MG 1 EACH TAB PO PRN (12:38)
[2021-05-21] MEDS ORDERED: ALPRAZolam 0.25 MG TAB PO PRN (12:38)
[2021-05-21] MEDS ORDERED: ACETAMINOPHEN IV (For NPO) 1,000 MG in EMPTY BAG 1 BAG IVPB ONE (13:43)
[2021-05-21] MEDS: FERROUS SULFATE 325 MG TAB PO SCH (13:49)
[2021-05-21] MEDS: MULTIVITAMINS, THERA 1 EACH TAB PO SCH (13:49)
[2021-05-21] MEDS: ASCORBIC ACID 500 MG TAB PO SCH ×3 (13:49→23:09)
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
[2021-05-21] MEDS: MIDODRINE 5 MG TAB PO SCH (15:01)
[2021-05-21 15:10] LABS: Anisocytosis Slight; Hypochromasia Marked; MCH 27.1 pg (25.0-35.0); MCHC 29.1 g/dL (31.0-37.0); MCV 93.1 fL (80.0-100.0); Mean Platelet Volume 7.5; Platelet Count 334 k/uL (150-450); RBC 3.11 m/uL (4.30-5.90); RDW 17.4 % (11.5-15.5); WBC 22.2 k/uL (3.8-10.6)
[2021-05-21 15:19] LABS: HGB 8.4 gm/dL (13.0-17.5)
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
--- NOTE | 2021-05-21 16:56 | XR ---
EXAMINATION TYPE: XR chest 1V portable DATE OF EXAM: 05/21/2021 COMPARISON: 05/11/2021 HISTORY: Fever TECHNIQUE: Single view FINDINGS: There are sternal wires. There is right central venous catheter with tip in the superior ve na cava. There is thoracic spine scoliosis surgery on the left side. There is cardiac valve surgery. There is no heart failure. Lungs are clear of consolidation. IMPRESSION: No pulmonary consolidation or heart failure. No adverse change compared to recent exam.
[2021-05-21] MEDS ORDERED: WARFARIN 5 MG TAB PO ONE (18:00)
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
[2021-05-21] MEDS ORDERED: TEMAZEPAM 30 MG CAP PO SCH (21:00)
[2021-05-21] MEDS ORDERED: TEMAZEPAM 15 MG CAP PO SCH (21:00)
[2021-05-22] MEDS: HYDROmorphone 0.5 MG/0.5 ML SYRINGE IVP PRN ×4 (02:23→14:29)
[2021-05-22 04:15] VITALS: RESP 18
[2021-05-22] MEDS: MIDODRINE 5 MG TAB PO SCH (09:16)
[2021-05-22] MEDS: ASCORBIC ACID 500 MG TAB PO SCH (09:16)
[2021-05-22] MEDS: MULTIVITAMINS, THERA 1 EACH TAB PO SCH (09:16)
[2021-05-22] MEDS: METOPROLOL TARTRATE 50 MG TAB PO SCH (09:16)
[2021-05-22] MEDS: FERROUS SULFATE 325 MG TAB PO SCH (09:17)
[2021-05-22 11:14] VITALS: BP 92/54; PULSE 121; TEMP 98.5
[2021-05-22 11:17] VITALS: BMI 27.1
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
[2021-05-22] MEDS ORDERED: WARFARIN 0.5 MG TAB PO ONE (18:00)
== END 2021-05-22 14:45 | disposition hospice, home (50) | DRG 872 ==
LOC: EC 17:32 → 3SCARD 20:21 → OBSVTOIN 05-21 10:31 → 3SCARD 05-21 13:08
PROVIDERS: ADMIT Hospitalist; ATTEND Hospitalist
PROC: 30233N1 Transfusion of Nonautologous Red Blood Cells into Peripheral Vein, Percutaneous Approach (ICD-10-PCS; principal; 2021-05-21)
DX: A41.9 Sepsis, unspecified organism (principal); I47.1 Supraventricular tachycardia; G82.20 Paraplegia, unspecified; D62 Acute posthemorrhagic anemia; M46.28 Osteomyelitis of vertebra, sacral and sacrococcygeal region; Z51.5 Encounter for palliative care; Z20.822 Contact with and (suspected) exposure to COVID-19; Z66 Do not resuscitate; I08.3 Combined rheumatic disorders of mitral, aortic and tricuspid valves; L89.159 Pressure ulcer of sacral region, unspecified stage; I10 Essential (primary) hypertension; F41.9 Anxiety disorder, unspecified; F51.04 Psychophysiologic insomnia; D63.8 Anemia in other chronic diseases classified elsewhere; Z79.01 Long term (current) use of anticoagulants; Z79.899 Other long term (current) drug therapy; Z82.1 Family history of blindness and visual loss; Z82.49 Family history of ischemic heart disease and other diseases of the circulatory system; Z86.711 Personal history of pulmonary embolism; Z86.718 Personal history of other venous thrombosis and embolism; Z86.74 Personal history of sudden cardiac arrest; Z91.14 Patient's other noncompliance with medication regimen; Z93.3 Colostomy status; Z93.6 Other artificial openings of urinary tract status; Z95.2 Presence of prosthetic heart valve
CPT/HCPCS: 36415; 71045; 80053; 81001; 82272; 83605; 83735; 85025; 85027; 85610; 85730; 86850; 86900; 86901; 86920; 87040; 87077; 87086; 87186; 87635; 93005; 96361; 96374; 99285